=== PATIENT | female | born 1960 | race Caucasian/White ===

== ENCOUNTER 2018-08-18 16:36 | Emergency (ER) | payer BC, OTHER ==
[~2018-08-18] VITALS: Ht 154.9 cm; Wt 78.3 kg
[~2018-08-18 16:36] MED LIST: ATORVASTATIN PO; BENAZEPRIL PO; METFORMIN PO; OMEPRAZOLE PO; TYLENOL PO
[2018-08-18 16:45] VITALS: BP 129/69; PULSE 104; RESP 18; Ht 154.9 cm; Wt 78.3 kg
[2018-08-18] MEDS ORDERED: KETOROLAC 30 MG INJ IM STA (17:20)
[2018-08-18] MEDS ORDERED: IBUP-1542 PO (17:58)
[2018-08-18] MEDS ORDERED: AZIT250T PO (17:58)
[2018-08-18] MEDS ORDERED: D-ME473S2 PO (17:58)
--- NOTE | 2018-08-18 18:05 | ERD ---
ER Documentation Chief Complaint Chief Complaint Fever, cough, R cheek swelling, pelvic pain X 4 days HPI 57-year-old female presents with multiple complaints. She said subjective fever, productive cough for the last week. She has pain and tenderness on her anterior cervical area. She has watery bowel movements as well with intermittent lower abdominal pain. She does not have sustained abdominal pain, current fevers. Patient vomited a couple times after coughing nonbilious nonbloody. ROS All systems reviewed and are negative except as per history of present illness. Medications Home Meds Active Scripts Dextromethorphan Hb-Promethazine Hcl* (Promethazine DM* Syrup) 473 Ml Syrup, 5 ML PO Q6 PRN for COUGH for 5 Days, ML Prov:JAYNE CRANE MD 08/18/18 Ibuprofen* (Motrin*) 600 Mg Tab, 600 MG PO Q6, #15 TAB Prov:JAYNE CRANE MD 08/18/18 Azithromycin* (Zithromax*) 250 Mg Tablet, 250 MG PO .ZPACK DIRECTED, #6 TAB TAKE 500 MG (2 TABS) THE FIRST DAY THEN 250 MG (1 TAB) DAYS 2-5 Prov:JAYNE CRANE MD 08/18/18 Reported Medications [Tylenol] No Conflict Check, 300 MG PO DAILY PRN for PAIN 09/04/14 [Benazepril] No Conflict Check, PO DAILY 09/04/14 [Atorvastatin] No Conflict Check, PO HS 09/04/14 [Metformin] No Conflict Check, PO BID 09/04/14 [Omeprazole] No Conflict Check, PO AM 09/04/14 Allergies Allergies: Coded Allergies: Penicillins (Unverified Allergy, Unknown, HIVES, 09/04/14) PMhx/Soc History of Surgery: Yes (RT ARM SX ) Anesthesia Reaction: No Hx Neurological Disorder: No Hx Respiratory Disorders: No Hx Cardiac Disorders: Yes (HTN ) Hx Psychiatric Problems: No Hx Miscellaneous Medical Probl: Yes (HIGH CHOLESTEROL) Hx Alcohol Use: No Hx Substance Use: No Hx Tobacco Use: Yes (2 CIGARETTES/DAY) Smoking Status: Current every day smoker FmHx Family History: No diabetes, No coronary disease, No other Physical Exam Vitals Vital Signs Date Temp Pulse Resp B/P (MAP) Pulse Ox O2 O2 Flow FiO2 Time Delivery Rate 5/31/19 99.8 104 18 129/69 96 16:45 (89) Physical Exam Const: No acute distress Head: Atraumatic Eyes: Normal Conjunctiva ENT: Normal External Ears, Nose and Mouth. TMs and oropharynx normal. Neck: Full range of motion. No meningismus. Resp: Clear to auscultation bilaterally with cough without rales, wheezing or retractions. Cardio: Regular rate and rhythm, no murmurs Abd: Soft, non tender, non distended. Normal bowel sounds Skin: No petechiae or rashes Back: No midline or flank tenderness Ext: No cyanosis, or edema Neur: Awake and alert Psych: Normal Mood and Affect Results 24 hrs Current Medications Medications Dose Sig/Reynaldo Start Time Status Last (Trade) Ordered Route PRN Stop Time Admin Dose Reason Admin Ketorolac 30 mg ONCE STAT 08/18/18 DC 08/18/18 Tromethamine IM 17:20 17:29 (Toradol) 08/18/18 17:21 Procedures/MDM Patient will complains of multiple complaints including productive cough for last week. Intermittent diarrhea and crampy lower abdominal pain without current findings of abdominal tenderness, she has no tenderness at McBurney's point no Dennison sign. She is well-appearing. She has no evidence of hypoxemia, respiratory distress, signs of pneumonia. Given the duration of symptoms we will treat empirically with Keflex, promethazine, and ibuprofen. She was given Toradol 30 mg IM for body aches. The patient was stable with no new complaints during the ER course. Clinically, there is no current evidence to suggest meningitis, sepsis, acute abdomen, pneumonia, stroke, acute coronary syndrome, pulmonary embolism, aortic dissection or any other emergent condition appearing to require further evaluation or hospitalization. Patient counseled regarding my diagnostic impression and care plan. Prior to discharge all questions answered. Pt agrees with treatment plan and understands strict return precautions. Pt is instructed to follow up with primary care provider within 24- 48 hours. Precautionary instructions provided including instructions to return to the ER if not improving or for any worsening or changing symptoms or concerns. Disclaimer: Inadvertent spelling and grammatical errors are likely due to EHR/dictation software use and do not reflect on the overall quality of patient care. Also, please note that the electronic time recorded on this note does not necessarily reflect the actual time of the patient encounter. Departure Diagnosis: Primary Impression: Diarrhea Diarrhea type: unspecified type Qualified Codes: R19.7 - Diarrhea, unspecified Additional Impression: URI, acute Condition: Stable Patient Instructions: Treating Diarrhea, Bronchitis, Antiobiotic Treatment (Adult) Additional Instructions: Recheck for new or worsening symptoms with primary care doctor. Recheck for worsening abdominal pain, blood, new or worsening symptoms. JAYNE CRANE MD August 18, 2018 18:05
== END 2018-08-18 18:43 | disposition home or self-care (01) ==
LOC: FTE 16:36
DX: R19.7 Diarrhea, unspecified (principal); I10 Essential (primary) hypertension; F17.210 Nicotine dependence, cigarettes, uncomplicated; J06.9 Acute upper respiratory infection, unspecified
CPT/HCPCS: 96372; J1885

== ENCOUNTER 2018-08-23 22:28 | Emergency (ER) | payer BC, OTHER ==
[~2018-08-23] VITALS: Ht 157.5 cm; Wt 78.3 kg
[~2018-08-23 22:28] MED LIST changes: +AZIT250T PO; +D-ME473S2 PO; +IBUP-1542 PO
[2018-08-23 22:45] VITALS: Ht 157.5 cm; Wt 78.3 kg
[2018-08-24] MEDS ORDERED: ONDANSETRON 4 MG INJ IV STA (00:24)
[2018-08-24] MEDS ORDERED: SOD CHLORIDE 0.9% 500 ML IV STA (00:24)
[2018-08-24] MEDS ORDERED: morphine 4 MG/ML VIAL IV STA (00:24)
[2018-08-24] MEDS ORDERED: PIOG30TA71 PO (03:53)
[2018-08-24] MEDS ORDERED: GLYB5TAB3 PO (03:53)
[2018-08-24] MEDS ORDERED: OMEP20CA16 PO (03:53)
[2018-08-24] MEDS ORDERED: PRAV40TA76 PO (03:53)
[2018-08-24] MEDS ORDERED: VIT1TABL46 PO (03:53)
[2018-08-24] MEDS ORDERED: METF100010 PO (03:53)
[2018-08-24] MEDS ORDERED: LISI40TA3 PO (03:53)
[2018-08-24] MEDS ORDERED: DOCU-144 PO (04:33)
[2018-08-24] MEDS ORDERED: CIPR500T4 PO (04:33)
[2018-08-24 04:40] VITALS: BP 100/68; PULSE 83; RESP 19
--- NOTE | 2018-08-24 04:44 | ERD ---
ER Documentation Chief Complaint Chief Complaint back and abd pain x yesterday; fevers; nausea/vomiting HPI This is a 57-year-old female complains of back pain now presents yesterday. She also felt fevers and nausea and vomiting. 2 episodes of vomiting nonbilious nonbloody back denies any flank region complains of lower abdominal region. Pain is mild to moderate intensity no exacerbating alleviating factors. She has had urgency frequency of urination she is also complains of mild constipation for the past few days. Denies any recent travel. Denies any sick contacts. ROS All systems reviewed and are negative except as per history of present illness. Medications Home Meds Active Scripts Docusate Sodium* (Colace*) 100 Mg Capsule, 100 MG PO TID, #30 CAP Prov:MICHEL WAHL 08/24/18 Ciprofloxacin Hcl* (Ciprofloxacin Hcl*) 500 Mg Tablet, 500 MG PO BID for 5 Days, TAB Prov:MICHEL WAHL. 08/24/18 Dextromethorphan Hb-Promethazine Hcl* (Promethazine DM* Syrup) 473 Ml Syrup, 5 ML PO Q6 PRN for COUGH for 5 Days, ML Prov:JAYNE CRANE MD 08/18/18 Ibuprofen* (Motrin*) 600 Mg Tab, 600 MG PO Q6, #15 TAB Prov:JAYNE CRANE MD 08/18/18 Reported Medications Metformin Hcl* (Metformin Hcl*) 1,000 Mg Tablet, 500 MG PO BID for 30 Days, #60 08/24/18 Glyburide* (Glyburide*) 5 Mg Tablet, 5 MG PO BID for 30 Days, #60 08/24/18 Pravastatin Sodium* (Pravastatin Sodium*) 40 Mg Tablet, 40 MG PO QHS for 30 Days, #30 08/24/18 Vitamin B Complex* (Vitamin B Complex*) 1 Each Tablet, 1 TAB PO DAILY, TAB 08/24/18 Lisinopril* (Lisinopril*) 40 Mg Tablet, 40 MG PO DAILY for 30 Days, #30 08/24/18 Omeprazole* (Omeprazole*) 20 Mg Capsule.dr, 20 MG PO DAILY for 60 Days, #60 08/24/18 Pioglitazone Hcl* (Pioglitazone Hcl*) 30 Mg Tablet, 30 MG PO DAILY for 90 Days, #90 08/24/18 Discontinued Reported Medications [Tylenol] No Conflict Check, 300 MG PO DAILY PRN for PAIN 09/04/14 [Benazepril] No Conflict Check, PO DAILY 09/04/14 [Atorvastatin] No Conflict Check, PO HS 09/04/14 [Metformin] No Conflict Check, PO BID 09/04/14 [Omeprazole] No Conflict Check, PO AM 09/04/14 Discontinued Scripts Azithromycin* (Zithromax*) 250 Mg Tablet, 250 MG PO .BrandoPACK DIRECTED, #6 TAB TAKE 500 MG (2 TABS) THE FIRST DAY THEN 250 MG (1 TAB) DAYS 2-5 Prov:JAYNE CRANE MD 08/18/18 Allergies Allergies: Coded Allergies: Penicillins (Unverified Allergy, Unknown, HIVES, 08/24/18) PMhx/Soc History of Surgery: Yes (RT ARM SX ) Anesthesia Reaction: No Hx Neurological Disorder: No Hx Respiratory Disorders: No Hx Cardiac Disorders: Yes (HTN ) Hx Psychiatric Problems: No Hx Miscellaneous Medical Probl: Yes (HIGH CHOLESTEROL) Hx Alcohol Use: No Hx Substance Use: No Hx Tobacco Use: Yes (2 CIGARETTES/DAY) Smoking Status: Current some day smoker Physical Exam Vitals Vital Signs Date Temp Pulse Resp B/P (MAP) Pulse Ox O2 O2 Flow FiO2 Time Delivery Rate 08/24/18 88 22 99/66 (77) 96 Room Air 00:30 08/23/18 100.1 110 20 121/55 95 22:45 (77) Physical Exam Const: No acute distress Head: Atraumatic Eyes: Normal Conjunctiva ENT: Normal External Ears, Nose and Mouth. Neck: Full range of motion. No meningismus. Resp: Clear to auscultation bilaterally Cardio: Regular rate and rhythm, no murmurs Abd: Soft, non tender, non distended. Normal bowel sounds Skin: No petechiae or rashes Back: No midline or flank tenderness Ext: No cyanosis, or edema Neur: Awake and alert Psych: Normal Mood and Affect Result Diagram: 08/24/18 0058 08/24/18 0058 Results 24 hrs Laboratory Tests Test 08/24/18 00:58 White Blood Count 9.9 10^3/ul Red Blood Count 4.87 10^6/ul Hemoglobin 14.5 g/dl Hematocrit 42.2 % Mean Corpuscular Volume 86.7 fl Mean Corpuscular Hemoglobin 29.8 pg Mean Corpuscular Hemoglobin Concent 34.4 g/dl Red Cell Distribution Width 12.2 % Platelet Count 323 10^3/UL Mean Platelet Volume 9.6 fl Immature Granulocytes % 2.000 % Neutrophils % 51.8 % Lymphocytes % 37.7 % Monocytes % 5.9 % Eosinophils % 1.7 % Basophils % 0.9 % Nucleated Red Blood Cells % 0.0 /100WBC Immature Granulocytes # 0.200 10^3/ul Neutrophils # 5.1 10^3/ul Lymphocytes # 3.7 10^3/ul Monocytes # 0.6 10^3/ul Eosinophils # 0.2 10^3/ul Basophils # 0.1 10^3/ul Nucleated Red Blood Cells # 0.0 10^3/ul Urine Color TOMMIE Urine Clarity CLOUDY Urine pH 5.0 Urine Specific [place] 1.034 Urine Ketones TRACE mg/dL Urine Nitrite NEGATIVE mg/dL Urine Bilirubin 1+ mg/dL Urine Urobilinogen 2+ mg/dL Urine Leukocyte Esterase NEGATIVE Chrissie/ul Urine Microscopic RBC 2 /HPF Urine Microscopic WBC 5 /HPF Urine Squamous Epithelial Cells MODERATE /HPF Urine Bacteria FEW /HPF Urine Mucus MANY /HPF Urine Hemoglobin NEGATIVE mg/dL Urine Glucose 1+ mg/dL Urine Total Protein 2+ mg/dl Sodium Level 134 mmol/L Potassium Level 4.1 mmol/L Chloride Level 98 mmol/L Carbon Dioxide Level 26 mmol/L Anion Gap 10 Blood Urea Nitrogen 13 mg/dl Creatinine 0.66 mg/dl Est Glomerular Filtrat Rate mL/min > 60 mL/min Glucose Level 318 mg/dl Calcium Level 9.2 mg/dl Total Bilirubin 0.8 mg/dl Direct Bilirubin 0.00 mg/dl Indirect Bilirubin 0.8 mg/dl Aspartate Amino Transf (AST/SGOT) 37 IU/L Alanine Aminotransferase (ALT/SGPT) 49 IU/L Alkaline Phosphatase 100 IU/L Troponin I < 0.012 ng/ml Total Protein 7.3 g/dl Albumin 4.1 g/dl Globulin 3.20 g/dl Albumin/Globulin Ratio 1.28 Lipase 381 U/L Current Medications Medications Dose Sig/Reynaldo Start Time Status Last (Trade) Ordered Route PRN Stop Time Admin Dose Reason Admin Sodium 500 ml @ Q1H STAT 08/24/18 DC 08/24/18 Chloride 500 mls/hr IV 00:24 08/24/18 00:24 01:23 Morphine 4 mg ONCE STAT 08/24/18 DC 08/24/18 Sulfate IV 00:24 08/24/18 01:28 (morphine) 00:26 Ondansetron 4 mg ONCE STAT 08/24/18 DC 08/24/18 HCl (Zofran IV 00:24 08/24/18 01:28 Inj) 00:26 Procedures/MDM Medical decision making: Patient's gastrointestinal symptoms have stabilized while in the department. No evidence of severe dehydration, sepsis, or surgical abdomen. Extensive discussion with family and patient that occult disease cannot be ruled out. 8 hour recheck for repeat abdominal exam is planned. Departure Diagnosis: Primary Impression: Constipation Constipation type: unspecified constipation type Qualified Codes: K59.00 - Constipation, unspecified Additional Impression: Urinary tract infection Urinary tract infection type: site unspecified Hematuria presence: without hematuria Qualified Codes: N39.0 - Urinary tract infection, site not specified Condition: Stable Patient Instructions: Understanding Urinary Tract Infections (UTIs), Constipation (Adult) MICHEL WAHL Aug 24, 2018 04:44
== END 2018-08-24 05:00 | disposition home or self-care (01) ==
LOC: E/R 22:28
DX: K59.00 Constipation, unspecified (principal); N39.0 Urinary tract infection, site not specified; I10 Essential (primary) hypertension; F17.210 Nicotine dependence, cigarettes, uncomplicated; Z79.84 Long term (current) use of oral hypoglycemic drugs
CPT/HCPCS: 36415; 71045; 74176; 80053; 81001; 83690; 84484; 85025; 85610; 85730; 93005; 96374; 96375; 99285; J2270; J2405; J7040

== ENCOUNTER 2018-09-03 00:23 | Emergency (ER) | payer BC ==
[~2018-09-03] VITALS: Ht 157.5 cm; Wt 84.1 kg
[~2018-09-03 00:23] MED LIST changes: -ATORVASTATIN PO; -AZIT250T PO; -BENAZEPRIL PO; +CIPR500T4 PO; +DOCU-144 PO; +GLYB5TAB3 PO; +LISI40TA3 PO; +METF100010 PO; -METFORMIN PO; +OMEP20CA16 PO; -OMEPRAZOLE PO; +PIOG30TA71 PO; +PRAV40TA76 PO; -TYLENOL PO; +VIT1TABL46 PO
[2018-09-03 00:30] VITALS: Ht 157.5 cm; Wt 84.1 kg
[2018-09-03] MEDS ORDERED: SOD CHLORIDE 0.9% 1,000 ML IV STA (01:02)
--- NOTE | 2018-09-03 03:08 | ERD ---
ER Documentation Chief Complaint Chief Complaint GENERALIZED BODY WEAKNESS, NUMBNESS AND BACK PAIN X1 WEEK, HX OF TIA HPI This is a 57-year-old female who presents with her family member. Per the family for the last several weeks the patient has had generalized weakness, paresthesias and recent admission for possible TIA. She had a normal MRI, normal carotid duplex and was discharged to follow-up with a neurologist. She has had several ER visits for similar symptoms with negative work-up. Today the patient is still feeling generally weak. She describes pain to the entire body as well as numbness and tingling. She has no focal deficits, no slurred speech. She just feels weak in general. Patient denies any fevers chills cough chest pain or shortness of breath. Significant social stressors have been noted. ROS All systems reviewed and are negative except as per history of present illness. Medications Home Meds Active Scripts Docusate Sodium* (Colace*) 100 Mg Capsule, 100 MG PO TID, #30 CAP Prov:MICHEL WAHL 08/24/18 Ciprofloxacin Hcl* (Ciprofloxacin Hcl*) 500 Mg Tablet, 500 MG PO BID for 5 Days, TAB Prov:MICHEL WAHL 08/24/18 Dextromethorphan Hb-Promethazine Hcl* (Promethazine DM* Syrup) 473 Ml Syrup, 5 ML PO Q6 PRN for COUGH for 5 Days, ML Prov:JAYNE CRANE MD 08/18/18 Ibuprofen* (Motrin*) 600 Mg Tab, 600 MG PO Q6, #15 TAB Prov:JAYNE CRANE MD 08/18/18 Reported Medications Metformin Hcl* (Metformin Hcl*) 1,000 Mg Tablet, 500 MG PO BID for 30 Days, #60 08/24/18 Glyburide* (Glyburide*) 5 Mg Tablet, 5 MG PO BID for 30 Days, #60 08/24/18 Pravastatin Sodium* (Pravastatin Sodium*) 40 Mg Tablet, 40 MG PO QHS for 30 Days, #30 08/24/18 Vitamin B Complex* (Vitamin B Complex*) 1 Each Tablet, 1 TAB PO DAILY, TAB 08/24/18 Lisinopril* (Lisinopril*) 40 Mg Tablet, 40 MG PO DAILY for 30 Days, #30 08/24/18 Omeprazole* (Omeprazole*) 20 Mg Capsule.dr, 20 MG PO DAILY for 60 Days, #60 08/24/18 Pioglitazone Hcl* (Pioglitazone Hcl*) 30 Mg Tablet, 30 MG PO DAILY for 90 Days, #90 08/24/18 Allergies Allergies: Coded Allergies: Penicillins (Unverified Allergy, Unknown, HIVES, 08/24/18) PMhx/Soc History of Surgery: Yes (RT ARM SX ) Anesthesia Reaction: No Hx Neurological Disorder: No Hx Respiratory Disorders: No Hx Cardiac Disorders: Yes (HTN ) Hx Psychiatric Problems: No Hx Miscellaneous Medical Probl: Yes (HIGH CHOLESTEROL) Hx Alcohol Use: No Hx Substance Use: No Hx Tobacco Use: Yes (2 CIGARETTES/DAY) Smoking Status: Former smoker FmHx Family History: No diabetes Physical Exam Vitals Vital Signs Date Temp Pulse Resp B/P (MAP) Pulse Ox O2 O2 Flow FiO2 Time Delivery Rate 09/03/18 63 16 112/68 98 Room Air 02:35 (83) 09/03/18 67 16 95/59 (71) 96 Room Air 01:35 09/03/18 Nasal 2 01:35 Cannula 09/03/18 98.6 89 19 95/59 (71) 96 00:30 Physical Exam General: Well developed, well nourished, no acute distress Head: Normocephalic, atraumatic. Eyes: Pupils equally reactive, EOM intact ENT: Moist mucous membranes Neck: Supple, no lymphadenopathy Respiratory: Lungs clear bilaterally, no distress Cardiovascular: RRR, no murmurs, rubs, or gallops Abdominal: Soft, non-tender, non-distended, no peritoneal signs : Deferred MSK: No edema, no unilateral swelling, 5/5 strength Neurologic: Alert and oriented, moving all extremities, normal speech, no focal weakness, no cerebellar signs, no pronator drift, inconsistent weakness to all extremities, somewhat behavioral Skin: No rash Psych: Normal mood Result Diagram: 09/03/18 0122 09/03/18 0122 Results 24 hrs Laboratory Tests Test 09/03/18 01:20 09/03/18 01:22 Bedside Glucose 131 mg/dL White Blood Count 7.1 10^3/ul Red Blood Count 5.00 10^6/ul Hemoglobin 14.6 g/dl Hematocrit 43.6 % Mean Corpuscular Volume 87.2 fl Mean Corpuscular Hemoglobin 29.2 pg Mean Corpuscular Hemoglobin Concent 33.5 g/dl Red Cell Distribution Width 12.1 % Platelet Count 340 10^3/UL Mean Platelet Volume 10.9 fl Immature Granulocytes % 0.300 % Neutrophils % 40.4 % Lymphocytes % 46.8 % Monocytes % 8.0 % Eosinophils % 3.4 % Basophils % 1.1 % Nucleated Red Blood Cells % 0.0 /100WBC Immature Granulocytes # 0.020 10^3/ul Neutrophils # 2.9 10^3/ul Lymphocytes # 3.3 10^3/ul Monocytes # 0.6 10^3/ul Eosinophils # 0.2 10^3/ul Basophils # 0.1 10^3/ul Nucleated Red Blood Cells # 0.0 10^3/ul Prothrombin Time 11.8 Sec Prothrombin Time Ratio 0.9 INR International Normalized Ratio 0.86 Activated Partial Thromboplast Time 29.1 Sec Urine Color STRAW Urine Clarity CLEAR Urine pH 6.0 Urine Specific [place] 1.004 Urine Ketones NEGATIVE mg/dL Urine Nitrite NEGATIVE mg/dL Urine Bilirubin NEGATIVE mg/dL Urine Urobilinogen NEGATIVE mg/dL Urine Leukocyte Esterase NEGATIVE Chrissie/ul Urine Hemoglobin NEGATIVE mg/dL Urine Glucose NEGATIVE mg/dL Urine Total Protein NEGATIVE mg/dl Sodium Level 139 mmol/L Potassium Level 4.2 mmol/L Chloride Level 105 mmol/L Carbon Dioxide Level 24 mmol/L Anion Gap 10 Blood Urea Nitrogen 13 mg/dl Creatinine 0.61 mg/dl Est Glomerular Filtrat Rate mL/min > 60 mL/min Glucose Level 142 mg/dl Calcium Level 9.5 mg/dl Total Bilirubin 0.6 mg/dl Direct Bilirubin 0.00 mg/dl Indirect Bilirubin 0.6 mg/dl Aspartate Amino Transf (AST/SGOT) 29 IU/L Alanine Aminotransferase (ALT/SGPT) 42 IU/L Alkaline Phosphatase 94 IU/L Troponin I < 0.012 ng/ml Total Protein 7.2 g/dl Albumin 4.2 g/dl Globulin 3.00 g/dl Albumin/Globulin Ratio 1.40 Free Thyroxine Index 3.01 ug/ml Thyroxine (T4) 9.7 ug/dl Triiodothyronine (T3) Uptake 31.0 % Current Medications Medications Dose Sig/Reynaldo Start Time Status Last (Trade) Ordered Route PRN Stop Time Admin Dose Reason Admin Sodium 1,000 ml @ Q1H STAT 09/03/18 DC 09/03/18 Chloride 1,000 mls/hr IV 01:02 01:33 09/03/18 02:01 Procedures/MDM EKG, MONITORS, & DIAGNOSTIC IMAGING: CT brain: No acute process per radiologist read Chest x-ray: I reviewed and interpreted a 1 view of the chest Mediastinum: No enlargement Cardiac silhouette: No cardiomegaly Airspace: Clear lung newman bilaterally without evidence of pneumothorax Bones: No evidence of fracture EKG: I reviewed and interpreted a 12-lead EKG. Rhythm: Normal sinus rhythm ST Changes: No contiguous ST segment elevations T waves: No contiguous T wave inversions Impression: No evidence of acute cardiac ischemia LAB INTERPRETATION: I reviewed the laboratory testing and it shows no evidence of acute process MEDICAL DECISION MAKING: The patient has nonspecific generalized weakness and paresthesia and pain. She has had a thorough work-up with recent hospitalization and negative MRI imaging of the brain. Her exam here is nonfocal. I do not have a clear etiology. There is some social stressors that may be playing a role. Consider MS that the patient had an MRI. Patient does not exhibit any signs or symptoms concerning for stroke syndrome. Her weakness is global and nonfocal without evidence of FIELD SPECIALIST process. To the family that any may not have a specific answer given her recent thorough work-up. The patient is to follow-up with a neurologist for outpatient testing. We discussed repeating laboratory testing and CT imaging of the brain. Outpatient follow-up is still needed. ER COURSE: * Laboratory testing and diagnostic imaging is unrevealing. The patient can be safely discharged with close primary care follow-up. CONSULTATION: None DISPOSITION PLAN: The patient does not have an identifiable emergent medical condition that warrants inpatient hospitalization at this time. The patient is deemed safe for discharge with outpatient follow-up. We discussed follow up with the patient's primary care doctor within 24 to 48 hours as needed. We also discussed return to the emergency room for worsening symptoms or worsening condition. Outpatient referral: Neurology Discharge Medications: None required Departure Diagnosis: Primary Impression: Generalized weakness Additional Impression: Paresthesia Condition: Stable Patient Instructions: Numbness, Weakness, Unk Cause Referrals: [facility] () Usted se quinn hecho un examen mdico de control que le indica que no est en otis condicin que requiera tratamiento urgente en el Departamento de Emergencia. Un estudio ms profundo y el tratamiento de bauer condicin pueden esperar sin sophiegn rijorgego hasta que usted sea atendida/o en el consultorio de bauer mdico o otis clnica. Es responsabilidad suya arreglar otis pepe para el seguimiento del patrick. MANEJO DE CONDICIONES NO URGENTES EN EL FUTURO 1) Si usted tiene un mdico de atencin primaria: Usted debera llamar a bauer mdico de atencin primaria antes de venir al departamento de emergencia. Despus de las horas de consultorio, bauer doctor o bauer asociado/a est disponible por telfono. El mdico o enfermero de carmenza en el servicio telefnico puede asesorarle por monserrat medio para atender el problema, o patrick contrario se puede programar otis pepe. 2) Si usted no tiene un mdico de atencin primaria: Llame al mdico o clnica de referencia que aparece abajo thea las horas de consultorio para hacer otis pepe para que le vean. CLINICAS: [facility] [phone] [address] [facility] [phone] [facility] [phone] [address] [facility]. [facility] [phone] [address] [facility] [address] [place] [id number] [phone] [facility] [phone] [facility] () Usted se quinn hecho un examen mdico de control que le indica que no est en otis condicin que requiera tratamiento urgente en el Departamento de Emergencia. Un estudio ms profundo y el tratamiento de bauer condicin pueden esperar sin ningn riesgo hasta que usted sea atendida/o en el consultorio de bauer mdico o otis clnica. Es responsabilidad suya arreglar otis pepe para el seguimiento del patrick. MANEJO DE CONDICIONES NO URGENTES EN EL FUTURO 1) Si usted tiene un mdico de atencin primaria: Usted debera llamar a bauer mdico de atencin primaria antes de venir al d epartamento de emergencia. Despus de las horas de consultorio, bauer doctor o bauer asociado/a est disponible por telfono. El mdico o enfermero de carmenza en el servicio telefnico puede asesorarle por monserrat medio para atender el problema, o patrick contrario se puede programar otis pepe. 2) Si usted no tiene un mdico de atencin primaria: Llame al mdico o condado institucions de referencia que aparece abajo thea las horas de consultorio para hacer otis pepe para que le vean. SI USTED NO PUEDE PAGAR PARA BABATUNDE UN MEDICO puede ir a: [facility] [id number] [place] [address] [facility] [address] [place] [address] [facility] [address] [place] [address] [facility] [address] [place], [place] [phone] Additional Instructions: Llame al doctor nombrado abajo (Referral Sources) MAANA y jacki otis PEPE PARA DENTRO DE OTIS SEMANA. Dgale a la secretaria que nosotros le instruimos hacer esta pepe.Avise o llame si bauer condicin se empeora antes de la pepe. NICHOL DOWNEY MD Sep 03, 2018 03:08
[2018-09-03 03:33] VITALS: BP 135/61; PULSE 64; RESP 16
[2018-09-04] MEDS ORDERED: LISI40TA3 PO (23:18)
[2018-09-04] MEDS ORDERED: VIT1TABL46 PO (23:18)
[2018-09-04] MEDS ORDERED: MTF1000T PO (23:18)
[2018-09-04] MEDS ORDERED: PRAV40TA76 PO (23:18)
[2018-09-04] MEDS ORDERED: PIOG30TA71 PO (23:18)
[2018-09-04] MEDS ORDERED: GLYB5TAB3 PO (23:18)
[2018-09-04] MEDS ORDERED: OMEP20CA16 PO (23:18)
== END 2018-09-03 03:51 | disposition home or self-care (01) ==
LOC: E/R 00:23
DX: R53.1 Weakness (principal); R20.2 Paresthesia of skin; Z79.84 Long term (current) use of oral hypoglycemic drugs; Z86.73 Personal history of transient ischemic attack (TIA), and cerebral infarction without residual deficits; Z87.891 Personal history of nicotine dependence
CPT/HCPCS: 36415; 70450; 71045; 80053; 81003; 82962; 84436; 84479; 84484; 85025; 85610; 85730; 93005; 99285; J7030

== ENCOUNTER 2018-09-04 16:34 | Inpatient (IN) | payer BC ==
[~2018-09-04] VITALS: Ht 154.9 cm; Wt 83.0 kg
--- NOTE | 2018-09-04 18:03 | ERD ---
ER Documentation Chief Complaint Chief Complaint RIGHT KNEE PAIN FROM A GLF ABOUT 30 MIN AGO, NO DEFORMITY NOTED. HPI Patient 57-year-old female, with history of hypertension and high cholesterol, returns to the emergency department 24 hours after being seen and evaluated for generalized weakness. Today, the patient presents to the emergency department, brought in by ambulance after sustaining a ground-level fall, according to the patient, caused by worsening of weakness in her lower extremities. Her symptoms started approximately on 08/18/18 when the patient presented to this emergency department with symptoms consistent with acute gastroenteritis. After that, the patient slowly developed progressive asymmetrical weakness of the lower extremities that now is compromising the upper extremities. The patient denies recent fever or chills, no chest pain or shortness of breath, no abdominal pain, no diarrhea or constipation. On 08/19/2018, the patient was evaluated at [facility] where she had a carotid ultrasound and a CT of the head that were negative for stroke. The patient and her family reports being in her usual state of health, ambulating, performing the activities of daily living without any difficulty 1 until 3 weeks ago. Since last week, the patient has not been able to ambulate, not been able to perform ADL without assistance. ROS All systems reviewed and are negative except as per history of present illness. Medications Home Meds Active Scripts Docusate Sodium* (Colace*) 100 Mg Capsule, 100 MG PO TID, #30 CAP Prov:MICHEL WAHL 08/24/18 Ciprofloxacin Hcl* (Ciprofloxacin Hcl*) 500 Mg Tablet, 500 MG PO BID for 5 Days, TAB Prov:MICHEL WAHL 08/24/18 Dextromethorphan Hb-Promethazine Hcl* (Promethazine DM* Syrup) 473 Ml Syrup, 5 ML PO Q6 PRN for COUGH for 5 Days, ML Prov:JAYNE CRANE MD 08/18/18 Ibuprofen* (Motrin*) 600 Mg Tab, 600 MG PO Q6, #15 TAB Prov:JAYNE CRANE MD 08/18/18 Reported Medications Metformin Hcl* (Metformin Hcl*) 1,000 Mg Tablet, 500 MG PO BID for 30 Days, #60 08/24/18 Glyburide* (Glyburide*) 5 Mg Tablet, 5 MG PO BID for 30 Days, #60 08/24/18 Pravastatin Sodium* (Pravastatin Sodium*) 40 Mg Tablet, 40 MG PO QHS for 30 Days, #30 08/24/18 Vitamin B Complex* (Vitamin B Complex*) 1 Each Tablet, 1 TAB PO DAILY, TAB 08/24/18 Lisinopril* (Lisinopril*) 40 Mg Tablet, 40 MG PO DAILY for 30 Days, #30 08/24/18 Omeprazole* (Omeprazole*) 20 Mg Capsule.dr, 20 MG PO DAILY for 60 Days, #60 08/24/18 Pioglitazone Hcl* (Pioglitazone Hcl*) 30 Mg Tablet, 30 MG PO DAILY for 90 Days, #90 08/24/18 Allergies Allergies: Coded Allergies: Penicillins (Unverified Allergy, Unknown, HIVES, 08/24/18) PMhx/Soc History of Surgery: Yes (right shoulder) Anesthesia Reaction: No Hx Neurological Disorder: No Hx Respiratory Disorders: No Hx Cardiac Disorders: Yes (dm, high cholesterol) Hx Psychiatric Problems: No Hx Miscellaneous Medical Probl: Yes (gastritis) Hx Alcohol Use: No Hx Substance Use: No Hx Tobacco Use: No Smoking Status: Never smoker Physical Exam Vitals Vital Signs Date Temp Pulse Resp B/P (MAP) Pulse Ox O2 O2 Flow FiO2 Time Delivery Rate 09/04/18 16 103/72 96 Room Air 21:59 (82) 09/04/18 98.5 83 18 105/59 99 16:38 (74) Physical Exam Patient alert, oriented, in a wheelchair, vital signs stable, seems anxious and in distress due to weakness. HEAD: Normocephalic, atraumatic. EYES: PERRLA, EOMI, Sclera and conjunctiva appear normal. NOSE: Clear and patent nostrils. EARS: Canals clear, tympanic membranes WNL. MOUTH: normal lips and tongue, no oral lesions. THROAT: Normal oropharynx, no tonsillar exudates. NECK: Supple, No lymphadenopathy. Full ROM without pain or tenderness. HEART: RRR, no rubs, murmurs, clicks or gallops. LUNGS: Clear to auscultation. ABDOMEN: Soft, non-tender without masses or hepatosplenomegaly. EXTREMITIES: No edema bilaterally. BACK: Full ROM, no deformity, normal back exam NEURO: Cranial nerves grossly intact, asymmetric muscle weakness predominantly in the left upper and left lower extremity with decreased bilateral patellar reflexes. Sensation intact to touch. SKIN: No rashes, no petechia. Result Diagram: 09/04/18190709/04/181907 Results 24 hrs Laboratory Tests Test 09/04/18 18:59 09/04/18 19:08 09/04/18 21:06 Urine Color YELLOW Urine Clarity CLEAR Urine pH 5.0 Urine Specific [place] 1.006 Urine Ketones NEGATIVE mg/dL Urine Nitrite NEGATIVE mg/dL Urine Bilirubin NEGATIVE mg/dL Urine Urobilinogen NEGATIVE mg/dL Urine Leukocyte Esterase NEGATIVE Chrissie/ul Urine Hemoglobin NEGATIVE mg/dL Urine Glucose NEGATIVE mg/dL Urine Total Protein NEGATIVE mg/dl Urine Opiates Screen Negative Urine Barbiturates Negative Urine Amphetamines Screen Negative Urine Benzodiazepines Screen Negative Urine Cocaine Screen Negative Urine Cannabinoids Negative White Blood Count 6.7 10^3/ul Red Blood Count 5.16 10^6/ul Hemoglobin 15.0 g/dl Hematocrit 45.4 % Mean Corpuscular Volume 88.0 fl Mean Corpuscular Hemoglobin 29.1 pg Mean Corpuscular 33.0 g/dl Hemoglobin Concent Red Cell Distribution Width 12.2 % Platelet Count 340 10^3/UL Mean Platelet Volume 10.9 fl Immature Granulocytes % 0.300 % Neutrophils % 53.0 % Lymphocytes % 36.6 % Monocytes % 5.7 % Eosinophils % 3.4 % Basophils % 1.0 % Nucleated Red Blood Cells % 0.0 /100WBC Immature Granulocytes # 0.020 10^3/ul Neutrophils # 3.6 10^3/ul Lymphocytes # 2.5 10^3/ul Monocytes # 0.4 10^3/ul Eosinophils # 0.2 10^3/ul Basophils # 0.1 10^3/ul Nucleated Red Blood Cells # 0.0 10^3/ul Sodium Level 139 mmol/L Potassium Level 5.2 mmol/L Chloride Level 101 mmol/L Carbon Dioxide Level 25 mmol/L Anion Gap 13 Blood Urea Nitrogen 17 mg/dl Creatinine 0.65 mg/dl Est Glomerular Filtrat > 60 mL/min Rate mL/min Glucose Level 130 mg/dl Lactic Acid Level 2.8 mmol/L 1.8 mmol/L Calcium Level 9.8 mg/dl Total Bilirubin 0.5 mg/dl Direct Bilirubin 0.00 mg/dl Indirect Bilirubin 0.5 mg/dl Aspartate Amino 30 IU/L Transf (AST/SGOT) Alanine 48 IU/L Aminotransferase (ALT/SGPT) Alkaline Phosphatase 93 IU/L Total Protein 7.5 g/dl Albumin 4.4 g/dl Globulin 3.10 g/dl Albumin/Globulin Ratio 1.41 Free Thyroxine Index 2.79 ug/ml Thyroxine (T4) 9.6 ug/dl Triiodothyronine (T3) Uptake 29.1 % Salicylates Level < 1.0 mg/dl Acetaminophen Level < 10.0 ug/ml Ethyl Alcohol Level < 10.0 mg/dl HIV (1&2) Antibody NEGATIVE Current Medications Medications Dose Sig/Reynaldo Start Time Status Last (Trade) Ordered Route PRN Stop Time Admin Dose Reason Admin Sodium 500 ml @ Q1H STAT 09/04/18 DC 09/04/18 Chloride 500 mls/hr IV 18:51 19:36 09/04/18 19:50 Ondansetron 4 mg BRIDGE ORDER 09/04/18 HCl (Zofran PRN IV 20:30 Inj) NAUSEA/VOMITI 09/05/18 20:29 NG 650 mg ER BRIDGE 09/04/18 Acetaminophen PRN PO 20:30 (Tylenol .MILD PAIN 09/05/18 20:29 Tab) 1-3 OR TEMP 650 mg ONCE ONCE 09/04/18 DC 09/04/18 Acetaminophen PO 21:00 20:38 (Tylenol 09/04/18 21:01 Tab) Sodium 1,000 ml @ Q1H ONCE 09/04/18 DC 09/04/18 Chloride 1,000 mls/hr IV 21:00 20:53 09/04/18 21:59 Sodium 1,000 ml @ [id number] IV 09/04/18 Chloride 70 mls/hr 20:56 09/05/18 20:55 IV Flush 3 ml PER 09/04/18 (NS 3 ml) PROTOCOL IV 21:00 Ondansetron 4 mg Q6H PRN 09/04/18 HCl (Zofran IV 21:00 Inj) NAUSEA/VOMITI NG 650 mg Q6H PRN 09/04/18 Acetaminophen PO .PAIN 1-3 21:00 (Tylenol OR TEMP Tab) Docusate 100 mg Q12H PRN 09/04/18 Sodium PO 21:00 (Colace) .CONSTIPATION Bisacodyl 5 mg DAILY PRN 09/04/18 (Dulcolax) PO 21:00 .CONSTIPATION EKG read by me: Rate/Rhythm: Regular rate and rhythm at a rate of 68 Intervals: Normal No acute ST changes. No T wave inversion Impression: No evidence of acute ischemia or arrhythmia Procedures/MDM Vital signs stable, Differential diagnosis include but not limited to demyelinating polyneuropathy, multiple sclerosis, thyroid disease, autoimmune process, stroke, electrolyte imbalance, anemia, side effects of the medication. Labs requested and reviewed: CBC: no evidence of anemia or leukocytosis, platelets normal. CMP: Normal electrolytes, except for mild elevated potassium, normal kidney function, normal liver function, normal lipase, no evidence of diabetes or metabolic acidosis. Urine: No evidence of infection. At this time, I considered that the patient requires further neurologic evaluation inpatient due to progressive weakness. During the ED course the patient remained stable, no new complaints. Results and clinical impression discussed with patient who agrees with management. The patient is stable to be admitted to [facility]. Admission: Diagnosis: Acute weakness Accepting physician: Dr. Kendall Level of care: [facility] Instructions explained and given directly by me to the patient with acknowledgment and demonstrated understanding. Disclaimer: Inadvertent spelling and grammatical errors are likely due to EHR/dictation software use and do not reflect on the overall quality of patient care. Also, please note that the electronic time recorded on this note does not necessarily reflect the actual time of the patient encounter. Departure Diagnosis: Primary Impression: Acute weakness Additional Impressions: Inability to perform activities of daily living History of gastroenteritis Fall due to stumbling Condition: Stable RAÚL RODRIGUEZ MD Sep 04, 2018 18:03
[2018-09-04] MEDS ORDERED: SOD CHLORIDE 0.9% 500 ML IV STA (18:51)
[2018-09-04] MEDS ORDERED: ONDANSETRON 4 MG INJ IV PRN ×2 (20:30→21:00)
[2018-09-04] MEDS ORDERED: ACETAMINOPHEN 325 MG TAB PO PRN (20:30)
[2018-09-04] MEDS ORDERED: NACL 0.9% 3 ML SYG IV SCH (21:00)
[2018-09-04] MEDS ORDERED: DOCUSATE SODIUM 100 MG CAP PO PRN (21:00)
[2018-09-04] MEDS ORDERED: SOD CHLORIDE 0.9% 1,000 ML IV ONE (21:00)
[2018-09-04] MEDS ORDERED: ACETAMINOPHEN 325 MG TAB PO ONE (21:00)
[2018-09-04] MEDS ORDERED: MTF1000T PO (23:18)
[2018-09-04] MEDS ORDERED: OMEP20CA16 PO (23:18)
[2018-09-04] MEDS ORDERED: PRAV40TA76 PO (23:18)
[2018-09-04] MEDS ORDERED: PIOG30TA71 PO (23:18)
[2018-09-04] MEDS ORDERED: LISI40TA3 PO (23:18)
[2018-09-04] MEDS ORDERED: GLYB5TAB3 PO (23:18)
[2018-09-04] MEDS ORDERED: VIT1TABL46 PO (23:18)
--- NOTE | 2018-09-05 00:17 | HP ---
Date/Time of Note Date/Time of Note DATE: 09/05/18 TIME: 00:16 Assessment/Plan VTE Prophylaxis SCD applied (from Nsg): Yes Pharmacological prophylaxis: NA/contraindicated Pharm contraindication: low risk/ambulating Lines/Catheters IV Catheter Type (from Nrsg): Saline Lock Assessment/Plan Hospital Course This is a 57-year-old female being admitted to the [facility] floor for: #1 limb and trunk weakness: Demyelinating disorder, versus GBS versus MS versus infectious etiology: Patient originally had what appeared to be a viral gastrointestinal illness which later brought on left lower extremity weakness followed by left upper extremity weakness and is now progressed to the right side. She denies any current fevers. Her diarrhea has resolved. She will continues to have a poor appetite. She does have pain to palpation of her cervical spine as well as her lumbar spine. She has had multiple imaging modalities such as CAT scans and blood work done as an outpatient which so far have been negative. She continues to have difficulty with her ADLs. My initial thought process was to initiate IVIG however as we do not have any in stock, I will proceed with high-dose Solu-Medrol. Will obtain MRI of the brain and cervical spine and lumbar spine pelvis. Will check HIV, RPR, BEULAH, CK total. Will consult neurology . PT evaluation. #2 lactic acidosis: Patient was found to have an elevated lactic acid level of 2.8. She does afebrile normal white blood cell count nonetheless given her symptoms will proceed with blood cultures x2, stool studies urine culture. #3. Diabetes mellitus, will check hemoglobin A1c, hold home oral medications, carbohydrate controlled diet, monitor glucose levels in the setting of high-dose steroids. #4 hypertension: Patient at the current time as blood pressures are borderline, will hold home oral medications #5 hyperlipidemia: We will hold statin at the current time until we set CK levels. #6 DVT and GI prophylaxis: SCDs, no GI prophylaxis indicated Further treatment strategy will be implemented as per the clinical course. Result Diagram: 09/04/18190709/04/181907 Results 24hrs Laboratory Tests Test 09/04/18 18:59 09/04/18 19:08 09/04/18 21:06 Urine Color YELLOW Urine Clarity CLEAR Urine pH 5.0 Urine Specific [place] 1.006 Urine Ketones NEGATIVE Urine Nitrite NEGATIVE Urine Bilirubin NEGATIVE Urine Urobilinogen NEGATIVE Urine Leukocyte Esterase NEGATIVE Urine Hemoglobin NEGATIVE Urine Glucose NEGATIVE Urine Total Protein NEGATIVE Urine Opiates Screen Negative Urine Barbiturates Negative Urine Amphetamines Screen Negative Urine Benzodiazepines Screen Negative Urine Cocaine Screen Negative Urine Cannabinoids Negative White Blood Count 6.7 Red Blood Count 5.16 Hemoglobin 15.0 Hematocrit 45.4 Mean Corpuscular Volume 88.0 Mean Corpuscular Hemoglobin 29.1 Mean Corpuscular Hemoglobin Concent 33.0 Red Cell Distribution Width 12.2 Platelet Count 340 Mean Platelet Volume 10.9 H Immature Granulocytes % 0.300 Neutrophils % 53.0 Lymphocytes % 36.6 Monocytes % 5.7 Eosinophils % 3.4 Basophils % 1.0 Nucleated Red Blood Cells % 0.0 Immature Granulocytes # 0.020 Neutrophils # 3.6 Lymphocytes # 2.5 Monocytes # 0.4 Eosinophils # 0.2 Basophils # 0.1 Nucleated Red Blood Cells # 0.0 Sodium Level 139 Potassium Level 5.2 H Chloride Level 101 Carbon Dioxide Level 25 Anion Gap 13 Blood Urea Nitrogen 17 Creatinine 0.65 Est Glomerular Filtrat Rate mL/min > 60 Glucose Level 130 Lactic Acid Level 2.8 *H 1.8 Calcium Level 9.8 Total Bilirubin 0.5 Direct Bilirubin 0.00 Indirect Bilirubin 0.5 Aspartate Amino Transf (AST/SGOT) 30 Alanine Aminotransferase (ALT/SGPT) 48 Alkaline Phosphatase 93 Total Protein 7.5 Albumin 4.4 Globulin 3.10 Albumin/Globulin Ratio 1.41 Free Thyroxine Index 2.79 Thyroxine (T4) 9.6 Triiodothyronine (T3) Uptake 29.1 Salicylates Level < 1.0 L Acetaminophen Level < 10.0 L Ethyl Alcohol Level < 10.0 H HIV (1&2) Antibody NEGATIVE HPI/ROS Admit Date/Time Admit Date/Time Hx of Present Illness Chief complaint: Worsening weakness This is a 57-year-old female, with history of hypertension and high cholesterol, returns to the emergency department 24 hours after being seen and evaluated for generalized weakness. Today, the patient presents to the emergency department, brought in by ambulance after sustaining a ground-level fall where she denied any head trauma, according to the patient, caused by worsening of weakness in her lower extremities. Some times have been going on since 08/18 and at that time she presented to the emergency department with symptoms consistent with acute gastroenteritis. After that, the patient slowly developed progressive asymmetrical weakness of the lower extremities that now is compromising the upper extremities. Reports that originally her weakness is on the left side now it is going to the right. The patient denies recent fever or chills, no chest pain or shortness of breath, no abdominal pain, no diarrhea or constipation. On 08/19/2018, the patient was evaluated at [facility] where she had a carotid ultrasound and a CT of the head that were negative for stroke. The patient and her family reports being in her usual state of health, ambulating, performing the activities of daily living without any difficulty 1 until 3 weeks ago. Since last week, the patient has not been able to ambulate, not been able to perform ADL without assistance. Her daughter was with her at the bedside states that they require assistance to help her up. Patient does report cervical spine pain as well as lumbar spine pain. Patient denies any any chest pain or difficulty breathing. She denies any fevers. Denies any headaches or vision changes. She does report right shoulder surgery in the past so she does have chronic weakness of the right upper extremity. Allergies: Penicillin Medications: See MAR DAMION Const: As per HPI Eyes : No pain discharge or redness or change in visual acuity ENT: No pain, sore throat, congestion, congestion, dysphagia or discharge Respiratory: No shortness of breath, cough, sputum, wheezing, or pleuritic pain Cardiovascular: No chest pain, palpitation, PND, or edema GI : no change in appetite, abdominal pain, nausea, vomiting, diarrhea, consti pation, or change in the color his stool Genitourinary: No dysuria, hematuria, flank pain , discharge or CVA tenderness Musculoskeletal: As per HPI Skin: No rash, bruising or hives Neuro: As per HPI Endocrine: No polyuria, polydipsia, temperature intolerance Psych: No hallucination, depression, anxiety or suicidal ideation PMH/Family/Social Past Medical History Diabetes mellitus, hyperlipidemia, hypertension Medications Current Medications Ondansetron HCl (Zofran Inj) 4 mg BRIDGE ORDER PRN IV NAUSEA/VOMITING; Start 09/04/18 at 20:30; Stop 09/05/18 at 20:29 Acetaminophen (Tylenol Tab) 650 mg ER BRIDGE PRN PO .MILD PAIN 1-3 OR TEMP; Start 09/04/18 at 20:30; Stop 09/05/18 at 20:29 Sodium Chloride 1,000 ml @ 70 mls/hr [id number] IV ; Start 09/04/18 at 20:56; Stop 09/05/18 at 20:55 IV Flush (NS 3 ml) 3 ml PER PROTOCOL IV ; Start 09/04/18 at 21:00 Ondansetron HCl (Zofran Inj) 4 mg Q6H PRN IV NAUSEA/VOMITING; Start 09/04/18 at 21:00 Acetaminophen (Tylenol Tab) 650 mg Q6H PRN PO .PAIN 1-3 OR TEMP; Start 09/04/18 at 21:00 Docusate Sodium (Colace) 100 mg Q12H PRN PO .CONSTIPATION; Start 09/04/18 at 21:00 Bisacodyl (Dulcolax) 5 mg DAILY PRN PO .CONSTIPATION; Start 09/04/18 at 21:00 Coded Allergies: Penicillins (Unverified Allergy, Unknown, HIVES, 08/24/18) Past Surgical History Right shoulder surgery Family History Significant Family History: no pertinent family hx Social History Alcohol Use: none Smoking Status: Former smoker Drug Use: none Exam/Review of Systems Vital Signs Vitals Vital Signs Date Temp Pulse Resp B/P (MAP) Pulse Ox O2 O2 Flow FiO2 Time Delivery Rate 09/04/18 59 21 102/62 98 Room Air 22:40 (75) 09/04/18 98.5 16:38 Exam Exam General: Patient is a pleasant female currently lying in bed in no acute distress HEENT: Atraumatic, normocephalic. The pupils are equal, round and reactive. Extraocular motor are intact Neck: Supple with full range of motion. No rigidity or meningismus Chest: Nontender Lungs: Clear to auscultation bilaterally no crackles rales or wheezing Heart: Normal S1-S2, Regular rhythm and rate. No murmur, S3, or S4 Abdomen: Soft , nontender, nondistended , bowel sounds are present. No guarding no rebound tenderness , No masses or organomegaly. No costovertebral temporal angle mass Extremities: Normal to inspection, no edema no cyanosis Neurologic: Normal mental status, speech normal, cranial nerves II through XII are intact, sensation intact, decreased strength of the bilateral upper extremities greater on the left, strength 3 out of 5 in bilateral lower extremities. Difficult for patient to initiate sitting up without assistance. Positive bilateral lower extremity straight leg test. Tenderness to palpation of the lumbar spine. Tenderness palpation over the cervical spine., Weakness of the trunk Additional Comments PROCEDURE: XR Ankle. CLINICAL INDICATION: Ankle pain. Trauma. TECHNIQUE: AP, lateral and oblique views of the right ankle were performed. COMPARISON: There are no similar studies submitted for comparison. FINDINGS: There is normal bone mineralization. There is an Achilles enthesophyte. There is no acute fracture or dislocation. The ankle mortise is intact. No osseous lesion is identified. There is no soft tissue swelling. IMPRESSION: No acute fracture or dislocation. Achilles enthesophyte Further findings as detailed above. RPTAT: HVF .Dave Parry MD, Date Time Electronically viewed and signed by .Dave Parry MD, MD on 09/04/2018 21:13 .F/ CC: RAÚL RODRIGUEZ MD [id number] PROCEDURE: XR Hip 2 Views. CLINICAL INDICATION: Right hip pain and trauma. TECHNIQUE: AP and frog lateral views of the right hip were performed. COMPARISON: None. FINDINGS: Mineralization: Normal. Fracture: None. Bony lesions: None. Interosseous spaces: Mild narrowing right hip joint. Degenerative changes in the visualized lower lumbar spine. Soft tissues: Few phleboliths in the right pelvis. Other: None. IMPRESSION: No visualized traumatic injury. 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 Degenerative changes in the visualized lower lumbar spine. If there is high clinical suspicion for traumatic injury, further evaluation with CT should be considered. RPTAT: AA .Soto Hughes MD, Date Time Electronically viewed and signed by .Soto Hughes MD, on 09/04/2018 21:09 .P/ CC: RAÚL RODRIGUEZ MD [id number] PROCEDURE: XR Chest. CLINICAL INDICATION: Pain TECHNIQUE: Frontal chest x-ray was obtained. COMPARISON: None. FINDINGS: The heart is not enlarged. Mediastinum is not widened. No hilar masses seen. Lungs are clear of any infiltrates. There is no effusion or pneumothorax. The osseous structures appear normal. IMPRESSION: No evidence for active cardiopulmonary disease. .Ketan Dawn MD, MD Date Time Electronically viewed and signed by .Ketan Dawn MD, on 09/04/2018 22:44 .A/ CC: OLIVIA STACK [id number] OLIVIA STACK Sep 05, 2018 00:17
[2018-09-05] MEDS ORDERED: ONDANSETRON 4 MG INJ IV STA (00:44)
[2018-09-05] MEDS ORDERED: morphine 4 MG/ML VIAL IV STA (00:44)
[2018-09-05] MEDS: SOD CHLORIDE 0.9% 1,000 ML IV SCH ×2 (05:25→11:14)
[2018-09-05] MEDS ORDERED: METHYLPRED. NA SUCC 1,000 MG in DEXTROSE 5% 100 ML IVPB ONE (05:30)
[2018-09-05] MEDS ORDERED: GLUCOSE GEL 15 GRAM TUBE BUCCAL PRN (06:30)
[2018-09-05] MEDS ORDERED: GLUCAGON 1 MG INJ IM PRN (06:30)
[2018-09-05] MEDS ORDERED: DEXTROSE 50% 50 ML SYRINGE IV PRN ×2 (06:30)
[2018-09-05] MEDS ORDERED: GLUCOSE GEL 15 GRAM TUBE PO PRN ×2 (06:30)
[2018-09-05] MEDS ORDERED: LORAZEPAM 2 MG INJ IV PRN (07:00)
[2018-09-05] MEDS ORDERED: INSULIN GLARGINE [LANTus] (100 UNITS/ML) SYG SC SCH ×2 (08:00)
[2018-09-05] MEDS ORDERED: INSULIN ASPART [NOVOLOG] 3 ML PEN SC SCH (08:00)
[2018-09-05] MEDS: VITAMIN B COMPLEX/VIT C CAP PO SCH (08:15)
[2018-09-05 10:36] VITALS: BP 148/79; PULSE 92; RESP 17
[2018-09-05 10:39] VITALS: Ht 154.9 cm; Wt 83.0 kg
--- NOTE | 2018-09-05 12:42 | QN ---
Documentation Comment 57 yo F w/obesity,dm2,htn admitted w/lower backpain/deborah upper/lower extremities numbness, difficulty w/ambulation and weightbearingx 3 wks.. Pt also had some "flu-like" illness prior to the onset of weakness.. she was seen here at [facility] ER and no source identified other thana possible gastroenetritis...No cultures drawn at that time..White count was stable. Pending spinal MRI to r/o acute spinal level radiculopathy. Depending MRI, one would also consider a short course steroid... In light of flu-like symptoms couple wks ago with Lactic acidosis this admi,t I will add WNV IGG/IGM. Another step would be a LP if MRI unrevealing...will d/w neurologist. F/u cultures ordered. Pt also may have DM neuropathy. Add gabapentin... Pt eval for stretching/strengthening exercise.. Add vitamin D level and tx accordingly.. Seen pt in collaboration w/GENARO Nogueira V. [facility] Sep 05, 2018 12:42
--- NOTE | 2018-09-05 12:53 | CONSI ---
Assessment/Plan Assessment/Plan Assessment/Plan (Recall) 57 F c/ Hx of DM2, and HLD...who presents for evaluation of slowly progressive left sided weakness and sensory loss, for which neurology is consulted.. 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 Cervical myelopathy is not entirely excluded.. A cerebral process is least likely.. P: Agree w/ MRI Brain and C spine for further characterization Add MRI T spine Lumbar puncture for CSF evaluation PT/OT as necessary Other management and supportive care per primary Consultation Date/Type/Reason Admit Date/Time Type of Consult Neurology Reason for Consultation b/l hand and left foot weakness and numbness. Requesting Provider: OLIVIA STACK Date/Time of Note DATE: 09/05/18 TIME: 12:40 Hx of Present Illness This is a 57-year-old female, with history of hypertension and high cholesterol, returns to the emergency department 24 hours after being seen and evaluated for generalized weakness. Today, the patient presents to the emergency department, brought in by ambulance after sustaining a ground-level fall where she denied any head trauma, according to the patient, caused by worsening of weakness in her lower extremities. Some times have been going on since 08/18 and at that time she presented to the emergency department with symptoms consistent with acute gastroenteritis. After that, the patient slowly developed progressive asymmetrical weakness of the lower extremities that now is compromising the upper extremities. Reports that originally her weakness is on the left side now it is going to the right. The patient denies recent fever or chills, no chest pain or shortness of breath, no abdominal pain, no diarrhea or constipation. On 08/19/2018, the patient was evaluated at [facility] where she had a carotid ultrasound and a CT of the head that were negative for stroke. The patient and her family reports being in her usual state of health, ambulating, performing the activities of daily living without any difficulty 1 until 3 weeks ago. Since last week, the patient has not been able to ambulate, not been able to perform ADL without assistance. Her daughter was with her at the bedside states that they require assistance to help her up. Patient does report cervical spine pain as well as lumbar spine pain. Patient denies any any chest pain or difficulty breathing. She denies any fevers. Denies any headaches or vision changes. She does report right shoulder surgery in the past so she does have chronic weakness of the right upper extremity. o/w neg Objective Exam Vitals Vital Signs Date Temp Pulse Resp B/P (MAP) Pulse Ox O2 O2 Flow FiO2 Time Delivery Rate 09/05/18 97.8 92 17 148/79 100 Room Air 10:36 (102) Exam PE: Gen Appearance: No Apparent Distress HEENT: Normocephalic Cardiovascular: Regular rate Lungs: Clear bilaterally Abdomen: Soft Extremities: Dry NE: The patient was alert and oriented. Language was normal. Fund of knowledge was normal. Pupils were equal and reactive to light. There was no afferent pupillary defect. Visual newman were normal. Funduscopic examination was limited. Extra-ocular movements were full. Ptosis was absent. There was no nystagmus. Facial sensation was normal. Face was symmetric with normal strength. Hearing was intact. Palate movements were normal. Neck strength was normal. There was normal tongue bulk and speed of movement. Tone was normal. Muscle bulk was normal. I did not see fasciculations. Arms were strong proximally, b/l...though there was moderate left hand weakness.. Legs were strong proximally, though there was moderate left foot weakness.. Vibration sensation was reduced on the left foot, o/w nl. Temperature and pinprick sensation was reduced on the left foot, o/w nl. Rapid alternating movements were limited by weakness. There was no dysmetria. There was no intention tremor. Gait was deferred due to bedrest. Arm reflexes were 2+ and symmetric; patellar reflexes were 2+ and symmetric.. ankle jerks were asymmetric - diminished on the left.. Choudhury's sign was absent. Plantar responses were flexor. Results Result Diagram: 09/05/1851709/05/1818 Results 24hrs Laboratory Tests Test 09/04/18 18:59 09/04/18 19:08 09/04/18 21:06 09/05/18 05:14 Urine Color YELLOW Urine Clarity CLEAR Urine pH 5.0 Urine Specific 1.006 Hood Urine Ketones NEGATIVE Urine Nitrite NEGATIVE Urine Bilirubin NEGATIVE Urine Urobilinogen NEGATIVE Urine Leukocyte NEGATIVE Esterase Urine Hemoglobin NEGATIVE Urine Glucose NEGATIVE Urine Total Protein NEGATIVE Urine Opiates Screen Negative Urine Barbiturates Negative Urine Amphetamines Negative Screen Urine Negative Benzodiazepines Screen Urine Cocaine Screen Negative Urine Cannabinoids Negative White Blood Count 6.7 Red Blood Count 5.16 Hemoglobin 15.0 Hematocrit 45.4 Mean Corpuscular 88.0 Volume Mean Corpuscular 29.1 Hemoglobin Mean Corpuscular 33.0 Hemoglobin Concent Red Cell 12.2 Distribution Width Platelet Count 340 Mean Platelet Volume 10.9 H Immature 0.300 Granulocytes % Neutrophils % 53.0 Lymphocytes % 36.6 Monocytes % 5.7 Eosinophils % 3.4 Basophils % 1.0 Nucleated Red Blood 0.0 Cells % Immature 0.020 Granulocytes # Neutrophils # 3.6 Lymphocytes # 2.5 Monocytes # 0.4 Eosinophils # 0.2 Basophils # 0.1 Nucleated Red Blood 0.0 Cells # Sodium Level 139 Potassium Level 5.2 H Chloride Level 101 Carbon Dioxide Level 25 Anion Gap 13 Blood Urea Nitrogen 17 Creatinine 0.65 Est Glomerular > 60 Filtrat Rate mL/min Glucose Level 130 Lactic Acid Level 2.8 *H 1.8 Calcium Level 9.8 Total Bilirubin 0.5 Direct Bilirubin 0.00 Indirect Bilirubin 0.5 Aspartate Amino 30 Transf (AST/SGOT) Alanine 48 Aminotransferase (AL T/SGPT) Alkaline Phosphatase 93 Total Protein 7.5 Albumin 4.4 Globulin 3.10 Albumin/Globulin 1.41 Ratio Free Thyroxine Index 2.79 Thyroxine (T4) 9.6 Triiodothyronine 29.1 (T3) Uptake Salicylates Level < 1.0 L Acetaminophen Level < 10.0 L Ethyl Alcohol Level < 10.0 H HIV (1&2) Antibody NEGATIVE Erythrocyte 21 Sedimentation Rate Creatine Kinase 66 C-Reactive Protein < 0.5 Test 09/05/18 05:18 09/05/18 08:09 White Blood Count 6.5 Red Blood Count 4.38 Hemoglobin 12.9 Hematocrit 39.0 Mean Corpuscular 89.0 Volume Mean Corpuscular 29.5 Hemoglobin Mean Corpuscular 33.1 Hemoglobin Concent Red Cell 12.2 Distribution Width Platelet Count 292 Mean Platelet Volume 10.9 H Immature 0.200 Granulocytes % Neutrophils % 41.7 Lymphocytes % 46.9 Monocytes % 6.2 Eosinophils % 4.2 Basophils % 0.8 Nucleated Red Blood 0.0 Cells % Immature 0.010 Granulocytes # Neutrophils # 2.7 Lymphocytes # 3.1 H Monocytes # 0.4 Eosinophils # 0.3 Basophils # 0.1 Nucleated Red Blood 0.0 Cells # Sodium Level 140 Potassium Level 4.1 Chloride Level 107 Carbon Dioxide Level 26 Anion Gap 7 Blood Urea Nitrogen 16 Creatinine 0.70 Est Glomerular > 60 Filtrat Rate mL/min Glucose Level 116 Hemoglobin A1c 11.6 H Calcium Level 8.8 Magnesium Level 2.3 Total Bilirubin 0.7 Direct Bilirubin 0.00 Indirect Bilirubin 0.7 Aspartate Amino 25 Transf (AST/SGOT) Alanine 37 Aminotransferase (AL T/SGPT) Alkaline Phosphatase 61 Total Protein 6.2 # Albumin 3.6 Globulin 2.60 Albumin/Globulin 1.38 Ratio Triglycerides Level 193 H Cholesterol Level 133 LDL Cholesterol, 68 Calculated HDL Cholesterol 26 L Cholesterol/HDL 5.1 Ratio Thyroid Stimulating 7.190 H Hormone (TSH) Bedside Glucose 169 Past Medical History reviewed Home Meds Active Scripts Ibuprofen* (Motrin*) 600 Mg Tab, 600 MG PO Q6, #15 TAB Prov:JAYNE CRANE MD 08/18/18 Reported Medications Vitamin B Complex* (Vitamin B Complex*) 1 Each Tablet, 1 TAB PO DAILY, TAB 09/04/18 Pravastatin Sodium* (Pravastatin Sodium*) 40 Mg Tablet, 40 MG PO HS, TAB 09/04/18 Pioglitazone Hcl* (Pioglitazone Hcl*) 30 Mg Tablet, 30 MG PO DAILY, TAB 09/04/18 Omeprazole* (Omeprazole*) 20 Mg Capsule.dr, 20 MG PO DAILY, #30 CAP 09/04/18 Metformin* (Glucophage*) 1,000 Mg Tablet, 1000 MG PO BID, #60 TAB 09/04/18 Lisinopril* (Lisinopril*) 40 Mg Tablet, 40 MG PO DAILY, #30 TAB 09/04/18 Glyburide* (Glyburide*) 5 Mg Tablet, 5 MG PO BID, #60 TAB 09/04/18 Discontinued Reported Medications Metformin Hcl* (Metformin Hcl*) 1,000 Mg Tablet, 500 MG PO BID for 30 Days, #60 08/24/18 Glyburide* (Glyburide*) 5 Mg Tablet, 5 MG PO BID for 30 Days, #60 08/24/18 Pravastatin Sodium* (Pravastatin Sodium*) 40 Mg Tablet, 40 MG PO QHS for 30 Days, #30 08/24/18 Vitamin B Complex* (Vitamin B Complex*) 1 Each Tablet, 1 TAB PO DAILY, TAB 08/24/18 Lisinopril* (Lisinopril*) 40 Mg Tablet, 40 MG PO DAILY for 30 Days, #30 08/24/18 Omeprazole* (Omeprazole*) 20 Mg Capsule.dr, 20 MG PO DAILY for 60 Days, #60 08/24/18 Pioglitazone Hcl* (Pioglitazone Hcl*) 30 Mg Tablet, 30 MG PO DAILY for 90 Days, #90 08/24/18 Discontinued Scripts Docusate Sodium* (Colace*) 100 Mg Capsule, 100 MG PO TID, #30 CAP Prov:MICHEL WAHL 08/24/18 Ciprofloxacin Hcl* (Ciprofloxacin Hcl*) 500 Mg Tablet, 500 MG PO BID for 5 Days, TAB Prov:MICHEL WAHL S. 08/24/18 Dextromethorphan Hb-Promethazine Hcl* (Promethazine DM* Syrup) 473 Ml Syrup, 5 ML PO Q6 PRN for COUGH for 5 Days, ML Prov:JAYNE CRANE MD 08/18/18 Medications Current Medications Sodium Chloride 1,000 ml @ 70 mls/hr [id number] IV Last administered on 09/05/18at 05:25; Admin Dose 70 MLS/HR; Start 09/04/18 at 20:56; Stop 09/05/18 at 20:55 IV Flush (NS 3 ml) 3 ml PER PROTOCOL IV ; Start 09/04/18 at 21:00 Ondansetron HCl (Zofran Inj) 4 mg Q6H PRN IV NAUSEA/VOMITING; Start 09/04/18 at 21:00 Acetaminophen (Tylenol Tab) 650 mg Q6H PRN PO .PAIN 1-3 OR TEMP; Start 09/04/18 at 21:00 Docusate Sodium (Colace) 100 mg Q12H PRN PO .CONSTIPATION; Start 09/04/18 at 21:00 Bisacodyl (Dulcolax) 5 mg DAILY PRN PO .CONSTIPATION; Start 09/04/18 at 21:00 Diagnostic Test (Pha) (Accu-Chek) 1 ea 02 XX ; Start 09/06/18 at 02:00 Miscellaneous Information 1 ea NOTE XX ; Start 09/05/18 at 06:30 Glucose (Glutose) 15 gm Q15M PRN PO DECREASED GLUCOSE; Start 09/05/18 at 06:30 Glucose (Glutose) 22.5 gm Q15M PRN PO DECREASED GLUCOSE; Start 09/05/18 at 06:30 Dextrose (D50w Syringe) 25 ml Q15M PRN IV DECREASED GLUCOSE; Start 09/05/18 at 06:30 Dextrose (D50w Syringe) 50 ml Q15M PRN IV DECREASED GLUCOSE; Start 09/05/18 at 06:30 Glucagon (Glucagen) 1 mg Q15M PRN IM DECREASED GLUCOSE; Start 09/05/18 at 06:30 Glucose (Glutose) 15 gm Q15M PRN BUCCAL DECREASED GLUCOSE; Start 09/05/18 at 06:30 Insulin Glargine (Lantus) 15 units DAILY@0800 SC Last administered on 09/05/18at 08:53; Admin Dose 15 UNITS; Start 09/05/18 at 08:00 Vitamin B Complex/ Vitamin C (Berocca) 1 cap DAILY PO Last administered on 09/05/18at 08:15; Admin Dose 1 CAP; Start 09/05/18 at 09:00 Lorazepam (Ativan) 0.5 mg PRIOR TO MRI PRN IV prior to mri; Start 09/05/18 at 07:00 Insulin Aspart (Novolog Insulin Pen) NOVOLOG *MILD* ALGORITHM WITH MEALS BEDTIME SC ; Start 09/05/18 at 17:55 Allergies: Coded Allergies: Penicillins (Unverified Allergy, Unknown, HIVES, 08/24/18) Social History Alcohol Use: none Smoking Status: Light tobacco smoker Drug Use: none DALJIT SAXENA 18, 2019 12:50
[2018-09-05] MEDS: GABAPENTIN 300 MG CAP PO SCH ×2 (13:09→20:28)
[2018-09-05] MEDS: INSULIN ASPART [NOVOLOG] 3 ML PEN SC SCH ×3 (13:10→20:58)
[2018-09-05 14:00] VITALS: BP 105/60; PULSE 84; RESP 18
[2018-09-05 20:30] VITALS: BP 128/63; PULSE 90; RESP 17
[2018-09-05] MEDS ORDERED: INSULIN ASPART [NOVOLOG] 3 ML PEN SC ONE (21:00)
[2018-09-05] MEDS ORDERED: ACCU-CHEK XX ONE (23:00)
[2018-09-06] MEDS: SOD CHLORIDE 0.9% 1,000 ML IV SCH (01:15)
[2018-09-06] MEDS: ACCU-CHEK XX SCH (02:00)
[2018-09-06 03:01] VITALS: BP 109/55; PULSE 68; RESP 19
[2018-09-06] MEDS: KETOROLAC 15 MG INJ IV PRN ×3 (03:18→22:14)
[2018-09-06] MEDS ORDERED: NPH, HUMAN INSULIN ISOPHANE 3ML VIAL SC ONE (05:00)
[2018-09-06] MEDS ORDERED: METHYLPRED. NA SUCC 1,000 MG in DEXTROSE 5% 50 ML IVPB ONE (05:00)
[2018-09-06 07:52] VITALS: BP 118/68; PULSE 67; RESP 18
[2018-09-06] MEDS ORDERED: INSULIN GLARGINE [LANTus] (100 UNITS/ML) SYG SC SCH (08:00)
[2018-09-06] MEDS: VITAMIN B COMPLEX/VIT C CAP PO SCH (08:24)
[2018-09-06] MEDS: GABAPENTIN 300 MG CAP PO SCH ×3 (08:24→21:54)
[2018-09-06] MEDS: INSULIN ASPART [NOVOLOG] 3 ML PEN SC SCH ×5 (08:29→22:11)
--- NOTE | 2018-09-06 12:55 | CONS ---
Assessment/Plan Assessment/Plan Assessment/Plan (Recall) 57 F c/ Hx of DM2, and HLD...who presents for evaluation of slowly progressive left sided weakness and sensory loss, for which neurology is consulted.. 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 MRI C and T spine is reassuringly negative fo myelopathy. MRI brain is without evidence of a focal brain process... P: Await Lumbar puncture for CSF evaluation PT/OT as necessary Other management and supportive care per primary Consultation Date/Type/Reason Admit Date/Time Sep 04, 2018 at 20:33 Type of Consult Neurology Reason for Consultation b/l hand and left foot weakness and numbness. Requesting Provider: OLIVIA STACK Date/Time of Note DATE: 09/06/18 TIME: 12:53 24 HR Interval Summary Free Text/Dictation s/p MRI brain and C spine She notes strength is a little better today Exam/Review of Systems Exam Vitals Vital Signs Date Temp Pulse Resp B/P (MAP) Pulse Ox O2 O2 Flow FiO2 Time Delivery Rate 09/06/18 97.9 67 18 118/68 94 Room Air 07:52 (85) Intake and Output 09/05/18 09/05/18 09/06/18 1515:00 23:00 07:00 IntakeIntake Total 440 ml 1330 ml OutputOutput Total 500 ml 900 ml BalanceBalance -500 ml -460 ml 1330 ml Results Result Diagram: 09/06/18 0448 09/06/18 0448 Results 24hrs Laboratory Tests Test 09/05/18 12:56 09/05/18 13:04 09/05/18 20:31 09/05/18 23:35 Vitamin D 32.5 1,25-Dihydroxy Hepatitis B Surface NEGATIVE Antigen Hepatitis B Core NEGATIVE Total Antibody Hepatitis C Antibody NEGATIVE Bedside Glucose 263 H 374 H 250 H Test 09/06/18 02:14 09/06/18 04:47 09/06/18 04:48 09/06/18 08:23 Bedside Glucose 233 H 224 H 244 H White Blood Count 10.7 # Red Blood Count 4.57 Hemoglobin 13.4 Hematocrit 39.3 Mean Corpuscular 86.0 Volume Mean Corpuscular 29.3 Hemoglobin Mean Corpuscular 34.1 Hemoglobin Concent Red Cell 12.1 Distribution Width Platelet Count 331 Mean Platelet Volume 10.6 H Immature 0.700 H Granulocytes % Neutrophils % 83.6 H Lymphocytes % 12.1 L Monocytes % 3.5 Eosinophils % 0.0 Basophils % 0.1 Nucleated Red Blood 0.0 Cells % Immature 0.070 H Granulocytes # Neutrophils # 8.9 H Lymphocytes # 1.3 Monocytes # 0.4 Eosinophils # 0.0 Basophils # 0.0 Nucleated Red Blood 0.0 Cells # Sodium Level 140 Potassium Level 3.9 Chloride Level 108 Carbon Dioxide Level 22 Anion Gap 10 Blood Urea Nitrogen 16 Creatinine 0.52 Est Glomerular > 60 Filtrat Rate mL/min Glucose Level 238 #H Calcium Level 9.3 Total Bilirubin 0.6 Direct Bilirubin 0.00 Indirect Bilirubin 0.6 Aspartate Amino 24 Transf (AST/SGOT) Alanine 46 Aminotransferase (AL T/SGPT) Alkaline Phosphatase 68 Total Protein 6.7 Albumin 3.9 Globulin 2.80 Albumin/Globulin 1.39 Ratio Medications Medication Current Medications IV Flush (NS 3 ml) 3 ml PER PROTOCOL IV ; Start 09/04/18 at 21:00 Ondansetron HCl (Zofran Inj) 4 mg Q6H PRN IV NAUSEA/VOMITING; Start 09/04/18 at 21:00 Acetaminophen (Tylenol Tab) 650 mg Q6H PRN PO .PAIN 1-3 OR TEMP; Start 09/04/18 at 21:00 Docusate Sodium (Colace) 100 mg Q12H PRN PO .CONSTIPATION; Start 09/04/18 at 21:00 Bisacodyl (Dulcolax) 5 mg DAILY PRN PO .CONSTIPATION; Start 09/04/18 at 21:00 Diagnostic Test (Pha) (Accu-Chek) 1 ea 02 XX ; Start 09/06/18 at 02:00 Miscellaneous Information 1 ea NOTE XX ; Start 09/05/18 at 06:30 Glucose (Glutose) 15 gm Q15M PRN PO DECREASED GLUCOSE; Start 09/05/18 at 06:30 Glucose (Glutose) 22.5 gm Q15M PRN PO DECREASED GLUCOSE; Start 09/05/18 at 06:30 Dextrose (D50w Syringe) 25 ml Q15M PRN IV DECREASED GLUCOSE; Start 09/05/18 at 06:30 Dextrose (D50w Syringe) 50 ml Q15M PRN IV DECREASED GLUCOSE; Start 09/05/18 at 06:30 Glucagon (Glucagen) 1 mg Q15M PRN IM DECREASED GLUCOSE; Start 09/05/18 at 06:30 Glucose (Glutose) 15 gm Q15M PRN BUCCAL DECREASED GLUCOSE; Start 09/05/18 at 06:30 Vitamin B Complex/ Vitamin C (Berocca) 1 cap DAILY PO Last administered on 09/06/18 08:24; Admin Dose 1 CAP; Start 09/05/18 at 09:00 Lorazepam (Ativan) 0.5 mg PRIOR TO MRI PRN IV prior to mri; Start 09/05/18 at 07:00 Insulin Aspart (Novolog Insulin Pen) NOVOLOG *MILD* ALGORITHM WITH MEALS BEDTIME SC Last administered on 09/06/18 08:29; Admin Dose 3 UNIT; Start 09/05/18 at 17:55 Gabapentin (Neurontin) 300 mg TID PO Last administered on 09/06/18 08:24; Admin Dose 300 MG; Start 09/05/18 at 13:00 Insulin Glargine (Lantus) 20 units DAILY@0800 SC Last administered on 09/06/18 08:28; Admin Dose 20 UNITS; Start 09/06/18 at 08:00 Ketorolac Tromethamine (Toradol) 15 mg Q6H PRN IV PAIN Last administered on 09/06/18 03:18; Admin Dose 15 MG; Start 09/06/18 at 02:30; Stop 09/08/18 at 02:30 DALJIT SAXENA Sep 06, 2018 12:55
[2018-09-06] MEDS ORDERED: LIDOCAINE 1% (MDV) 20 ML INJ ONE (14:15)
--- NOTE | 2018-09-06 14:59 | PN ---
Date/Time of Note Date/Time of Note DATE: 09/06/18 TIME: 14:58 Assessment/Plan VTE Prophylaxis Risk score (from Ns)>0 risk: 2 SCD applied (from Ns): Yes Pharmacological prophylaxis: NA/contraindicated Pharm contraindication: low risk/ambulating Lines/Catheters IV [facility]ter [facility]from [facility] Peripheral IV Urinary Cath still in place: No Assessment/Plan Hospital Course SUBJECTIVE: Had physical therapy evaluation. No acute distress. OBJECTIVE: Vital signs-see below PHYSICAL EXAM: Constitutional: Adequately built,not in acute distress. HEENT: Head atraumatic and normocephalic. Eyes: Extraocular muscles intact. Anicteric sclerae. Pupils equal bilaterally, reactive to light. NECK: Supple without lymph node. CHEST: Clear and good breath sounds equally. No wheezing. No rhonchi. HEART: S1, S2. Regular rate and rhythm. ABDOMEN: Soft/non tender with no rebound tenderness. Bowel sounds were present. EXTREMITIES: No cyanosis, clubbing or edema. NEUROLOGIC: Alert and oriented x3. No focal deficit. No sensory deficit. PSYCHOSOCIAL: No signs of depression. INTEGUMENTARY: No open wounds. ASSESSMENT AND PLAN:57 yo F w/obesity,dm2,htn admitted w/lower backpain with progressive left-sided weakness and numbness.. 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 -Continue with PT/OT -F/u serology studies ordered. Chronic degenerative L5-S1 spondylosis -I discussed this with Dr. Gaspar () who reviewed MRI findings, and unlikely cause of her presenting symptoms. This is more like a chronic issue and this would need outpatient follow-up if she develops further neurovascular compr omise.. Poorly controlled diabetes -Sugar uncontrolled -Will adjust basal/bolus insulin dosage. Essential hypertension -Stable. Continue to monitor -Resume lisinopril with lower dose Dyslipidemia -Resume statin dosage adjustment secondary lactic acidosis. Diabetic neuropathy -On gabapentin Lactic acidosis -Follow-up CSF studies to rule out any infectious process. Not patient with no fevers or leukocytosis and most likely this is a type B unless proven otherwise. -Adjust dose of statin to low intensity. DVT prophylaxis: SCDs Disposition: Follow-up LP/CSF studies. Follow-up neurology recommendations. Patient was seen in collaboration with Dr. العراقي. Result Diagram: 09/06/18 0448 09/06/18 0448 Results 24hrs Laboratory Tests Test 09/05/18 20:31 09/05/18 23:35 09/06/18 02:14 09/06/18 04:47 Bedside Glucose 374 H 250 H 233 H 224 H Test 09/06/18 04:48 09/06/18 08:23 09/06/18 12:48 White Blood Count 10.7 # Red Blood Count 4.57 Hemoglobin 13.4 Hematocrit 39.3 Mean Corpuscular 86.0 Volume Mean Corpuscular 29.3 Hemoglobin Mean Corpuscular 34.1 Hemoglobin Concent Red Cell 12.1 Distribution Width Platelet Count 331 Mean Platelet Volume 10.6 H Immature 0.700 H Granulocytes % Neutrophils % 83.6 H Lymphocytes % 12.1 L Monocytes % 3.5 Eosinophils % 0.0 Basophils % 0.1 Nucleated Red Blood 0.0 Cells % Immature 0.070 H Granulocytes # Neutrophils # 8.9 H Lymphocytes # 1.3 Monocytes # 0.4 Eosinophils # 0.0 Basophils # 0.0 Nucleated Red Blood 0.0 Cells # Sodium Level 140 Potassium Level 3.9 Chloride Level 108 Carbon Dioxide Level 22 Anion Gap 10 Blood Urea Nitrogen 16 Creatinine 0.52 Est Glomerular > 60 Filtrat Rate mL/min Glucose Level 238 #H Calcium Level 9.3 Total Bilirubin 0.6 Direct Bilirubin 0.00 Indirect Bilirubin 0.6 Aspartate Amino 24 Transf (AST/SGOT) Alanine 46 Aminotransferase (AL T/SGPT) Alkaline Phosphatase 68 Total Protein 6.7 Albumin 3.9 Globulin 2.80 Albumin/Globulin 1.39 Ratio Bedside Glucose 244 H 331 H Exam/Review of Systems Exam Vitals Vital Signs Date Temp Pulse Resp B/P (MAP) Pulse Ox O2 O2 Flow FiO2 Time Delivery Rate 09/06/18 97.9 67 18 118/68 94 Room Air 07:52 (85) Intake and Output 09/05/18 09/05/18 09/06/18 1515:00 23:00 07:00 IntakeIntake Total 440 ml 1330 ml OutputOutput Total 500 ml 900 ml BalanceBalance -500 ml -460 ml 1330 ml Results Results 24hrs Laboratory Tests Test 09/05/18 20:31 09/05/18 23:35 09/06/18 02:14 09/06/18 04:47 Bedside Glucose 374 H 250 H 233 H 224 H Test 09/06/18 04:48 09/06/18 08:23 09/06/18 12:48 White Blood Count 10.7 # Red Blood Count 4.57 Hemoglobin 13.4 Hematocrit 39.3 Mean Corpuscular 86.0 Volume Mean Corpuscular 29.3 Hemoglobin Mean Corpuscular 34.1 Hemoglobin Concent Red Cell 12.1 Distribution Width Platelet Count 331 Mean Platelet Volume 10.6 H Immature 0.700 H Granulocytes % Neutrophils % 83.6 H Lymphocytes % 12.1 L Monocytes % 3.5 Eosinophils % 0.0 Basophils % 0.1 Nucleated Red Blood 0.0 Cells % Immature 0.070 H Granulocytes # Neutrophils # 8.9 H Lymphocytes # 1.3 Monocytes # 0.4 Eosinophils # 0.0 Basophils # 0.0 Nucleated Red Blood 0.0 Cells # Sodium Level 140 Potassium Level 3.9 Chloride Level 108 Carbon Dioxide Level 22 Anion Gap 10 Blood Urea Nitrogen 16 Creatinine 0.52 Est Glomerular > 60 Filtrat Rate mL/min Glucose Level 238 #H Calcium Level 9.3 Total Bilirubin 0.6 Direct Bilirubin 0.00 Indirect Bilirubin 0.6 Aspartate Amino 24 Transf (AST/SGOT) Alanine 46 Aminotransferase (AL T/SGPT) Alkaline Phosphatase 68 Total Protein 6.7 Albumin 3.9 Globulin 2.80 Albumin/Globulin 1.39 Ratio Bedside Glucose 244 H 331 H Medications Medication Current Medications IV Flush (NS 3 ml) 3 ml PER PROTOCOL IV ; Start 09/04/18 at 21:00 Ondansetron HCl (Zofran Inj) 4 mg Q6H PRN IV NAUSEA/VOMITING; Start 09/04/18 at 21:00 Acetaminophen (Tylenol Tab) 650 mg Q6H PRN PO .PAIN 1-3 OR TEMP; Start 09/04/18 at 21:00 Docusate Sodium (Colace) 100 mg Q12H PRN PO .CONSTIPATION; Start 09/04/18 at 21:00 Bisacodyl (Dulcolax) 5 mg DAILY PRN PO .CONSTIPATION; Start 09/04/18 at 21:00 Diagnostic Test (Pha) (Accu-Chek) 1 ea 02 XX ; Start 09/06/18 at 02:00 Miscellaneous Information 1 ea NOTE XX ; Start 09/05/18 at 06:30 Glucose (Glutose) 15 gm Q15M PRN PO DECREASED GLUCOSE; Start 09/05/18 at 06:30 Glucose (Glutose) 22.5 gm Q15M PRN PO DECREASED GLUCOSE; Start 09/05/18 at 06:30 Dextrose (D50w Syringe) 25 ml Q15M PRN IV DECREASED GLUCOSE; Start 09/05/18 at 06:30 Dextrose (D50w Syringe) 50 ml Q15M PRN IV DECREASED GLUCOSE; Start 09/05/18 at 06:30 Glucagon (Glucagen) 1 mg Q15M PRN IM DECREASED GLUCOSE; Start 09/05/18 at 06:30 Glucose (Glutose) 15 gm Q15M PRN BUCCAL DECREASED GLUCOSE; Start 09/05/18 at 06:30 Vitamin B Complex/ Vitamin C (Berocca) 1 cap DAILY PO Last administered on 09/06/18at 08:24; Admin Dose 1 CAP; Start 09/05/18 at 09:00 Lorazepam (Ativan) 0.5 mg PRIOR TO MRI PRN IV prior to mri; Start 09/05/18 at 07:00 Insulin Aspart (Novolog Insulin Pen) NOVOLOG *MILD* ALGORITHM WITH MEALS BEDTIME SC Last administered on 09/06/18 12:52; Admin Dose 5 UNIT; Start 09/05/18 at 17:55 Gabapentin (Neurontin) 300 mg TID PO Last administered on 09/06/18 12:50; Admin Dose 300 MG; Start 09/05/18 at 13:00 Insulin Glargine (Lantus) 20 units DAILY@0800 SC Last administered on 09/06/18at 08:28; Admin Dose 20 UNITS; Start 09/06/18 at 08:00 Ketorolac Tromethamine (Toradol) 15 mg Q6H PRN IV PAIN Last administered on 09/06/18at 12:50; Admin Dose 15 MG; Start 09/06/18 at 02:30; Stop 09/08/18 at 02:30 GENARO PAGE NP Sep 06, 2018 14:59
[2018-09-06 16:11] VITALS: BP 125/69; PULSE 75; RESP 20
[2018-09-06 21:03] VITALS: BP 111/67; PULSE 68; RESP 18
[2018-09-06] MEDS: ATORVASTATIN 10 MG TAB PO SCH (21:54)
[2018-09-06] MEDS ORDERED: INSULIN ASPART [NOVOLOG] 3 ML PEN SC ONE (22:00)
[2018-09-06] MEDS ORDERED: ACCU-CHEK XX ONE (22:30)
[2018-09-07] MEDS: ACCU-CHEK XX SCH (02:00)
[2018-09-07 02:30] VITALS: BP 110/61; PULSE 64; RESP 18
[2018-09-07 07:50] VITALS: BP 100/59; PULSE 52; RESP 18
[2018-09-07] MEDS: INSULIN GLARGINE [LANTus] (100 UNITS/ML) SYG SC SCH (08:44)
[2018-09-07] MEDS: VITAMIN B COMPLEX/VIT C CAP PO SCH (08:45)
[2018-09-07] MEDS: INSULIN ASPART [NOVOLOG] 3 ML PEN SC SCH ×7 (08:46→21:00)
[2018-09-07] MEDS: GABAPENTIN 300 MG CAP PO SCH ×3 (08:50→20:49)
[2018-09-07] MEDS: LISINOPRIL 10 MG TAB PO SCH (08:51)
[2018-09-07] MEDS: KETOROLAC 15 MG INJ IV PRN (08:52)
[2018-09-07] MEDS: BISACODYL (EC) 5 MG TAB PO PRN (08:56)
--- NOTE | 2018-09-07 11:09 | CONS ---
Assessment/Plan Assessment/Plan Assessment/Plan (Recall) 57 F c/ Hx of DM2, and HLD...who presents for evaluation of slowly progressive left sided weakness and sensory loss, for which neurology is consulted.. 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 MRI C and T spine is reassuringly negative fo myelopathy. MRI brain is without evidence of a focal brain process... CSF confirms a mild inflammatory process P: Add West Nile serologies PT/OT as able EMG/NCS, which may be done as an outpatient Other management and supportive care per primary Consultation Date/Type/Reason Admit Date/Time Sep 04, 2018 at 20:33 Type of Consult Neurology Reason for Consultation b/l hand and left foot weakness and numbness. Requesting Provider: OLIVIA STACK Date/Time of Note DATE: 09/07/18 TIME: 11:05 24 HR Interval Summary Free Text/Dictation s/p LP Exam/Review of Systems Exam Vitals Vital Signs Date Temp Pulse Resp B/P (MAP) Pulse Ox O2 O2 Flow FiO2 Time Delivery Rate 09/07/18 52 18 100/59 95 Room Air 07:50 (73) 09/07/18 97.6 02:30 Intake and Output 09/06/18 09/06/18 09/07/18 1515:00 23:00 07:00 IntakeIntake Total 200 ml 360 ml OutputOutput Total 500 ml 350 ml 400 ml BalanceBalance -500 ml -150 ml -40 ml Results Result Diagram: 09/07/18 0441 09/07/18 0441 Results 24hrs Laboratory Tests Test 09/06/18 12:48 09/06/18 15:30 09/06/18 17:52 09/06/18 18:32 Bedside Glucose 331 H 342 H 315 H CSF Tubes Submitted 4 CSF Volume 4.0 CSF Appearance CLEAR CSF Color COLORLESS CSF WBC 17 *H CSF RBC 1000 H CSF Cell Count Tube TUBE#1 # CSF Mononuclear 94.1 Cells % (Auto) CSF Polynuclear WBCs 5.9 (%) CSF Glucose 155 H CSF Total Protein 103 H Test 09/06/18 21:33 09/06/18 21:56 09/07/18 00:04 09/07/18 02:50 Bedside Glucose 308 H 307 H 250 H 215 Test 09/07/18 04:41 09/07/18 08:23 White Blood Count 14.0 #H Red Blood Count 4.46 Hemoglobin 13.1 Hematocrit 39.0 Mean Corpuscular 87.4 Volume Mean Corpuscular 29.4 Hemoglobin Mean Corpuscular 33.6 Hemoglobin Concent Red Cell 12.2 Distribution Width Platelet Count 335 Mean Platelet Volume 11.1 H Immature 0.500 H Granulocytes % Neutrophils % 80.1 H Lymphocytes % 14.9 L Monocytes % 4.4 Eosinophils % 0.0 Basophils % 0.1 Nucleated Red Blood 0.0 Cells % Immature 0.070 H Granulocytes # Neutrophils # 11.2 H Lymphocytes # 2.1 Monocytes # 0.6 Eosinophils # 0.0 Basophils # 0.0 Nucleated Red Blood 0.0 Cells # Sodium Level 142 Potassium Level 4.0 Chloride Level 107 Carbon Dioxide Level 22 Anion Gap 13 Blood Urea Nitrogen 20 Creatinine 0.56 Est Glomerular > 60 Filtrat Rate mL/min Glucose Level 201 Calcium Level 8.9 Total Bilirubin 0.5 Direct Bilirubin 0.00 Indirect Bilirubin 0.5 Aspartate Amino 18 Transf (AST/SGOT) Alanine 31 Aminotransferase (AL T/SGPT) Alkaline Phosphatase 68 Total Protein 6.6 Albumin 3.6 Globulin 3.00 Albumin/Globulin 1.20 Ratio Bedside Glucose 156 Medications Medication Current Medications IV Flush (NS 3 ml) 3 ml PER PROTOCOL IV ; Start 09/04/18 at 21:00 Ondansetron HCl (Zofran Inj) 4 mg Q6H PRN IV NAUSEA/VOMITING; Start 09/04/18 at 21:00 Acetaminophen (Tylenol Tab) 650 mg Q6H PRN PO .PAIN 1-3 OR TEMP; Start 09/04/18 at 21:00 Docusate Sodium (Colace) 100 mg Q12H PRN PO .CONSTIPATION; Start 09/04/18 at 21:00 Bisacodyl (Dulcolax) 5 mg DAILY PRN PO .CONSTIPATION Last administered on 09/07/18at 08:56; Admin Dose 5 MG; Start 09/04/18 at 21:00 Diagnostic Test (Pha) (Accu-Chek) 1 ea 02 XX ; Start 09/06/18 at 02:00 Miscellaneous Information 1 ea NOTE XX ; Start 09/05/18 at 06:30 Glucose (Glutose) 15 gm Q15M PRN PO DECREASED GLUCOSE; Start 09/05/18 at 06:30 Glucose (Glutose) 22.5 gm Q15M PRN PO DECREASED GLUCOSE; Start 09/05/18 at 06:30 Dextrose (D50w Syringe) 25 ml Q15M PRN IV DECREASED GLUCOSE; Start 09/05/18 at 06:30 Dextrose (D50w Syringe) 50 ml Q15M PRN IV DECREASED GLUCOSE; Start 09/05/18 at 06:30 Glucagon (Glucagen) 1 mg Q15M PRN IM DECREASED GLUCOSE; Start 09/05/18 at 06:30 Glucose (Glutose) 15 gm Q15M PRN BUCCAL DECREASED GLUCOSE; Start 09/05/18 at 06:30 Vitamin B Complex/ Vitamin C (Berocca) 1 cap DAILY PO Last administered on 09/07/18at 08:45; Admin Dose 1 CAP; Start 09/05/18 at 09:00 Lorazepam (Ativan) 0.5 mg PRIOR TO MRI PRN IV prior to mri; Start 09/05/18 at 07:00 Insulin Aspart (Novolog Insulin Pen) NOVOLOG *MILD* ALGORITHM WITH MEALS BEDTIME SC Last administered on 09/07/18 08:46; Admin Dose 1 UNIT; Start 09/05/18 at 17:55 Gabapentin (Neurontin) 300 mg TID PO Last administered on 09/07/18 08:50; Admin Dose 300 MG; Start 09/05/18 at 13:00 Ketorolac Tromethamine (Toradol) 15 mg Q6H PRN IV PAIN Last administered on 09/07/18 08:52; Admin Dose 15 MG; Start 09/06/18 at 02:30; Stop 09/08/18 at 02:30 Lisinopril (Zestril) 10 mg DAILY PO ; Start 09/07/18 at 09:00 Atorvastatin Calcium (Lipitor) 10 mg HS PO Last administered on 09/06/18 21:54; Admin Dose 10 MG; Start 09/06/18 at 21:00 Insulin Glargine (Lantus) 24 units DAILY@0800 SC Last administered on 09/07/18at 08:44; Admin Dose 24 UNITS; Start 09/07/18 at 08:00 Insulin Aspart (Novolog Insulin Pen) 8 unit WITH MEALS SC Last administered on 6/20/19at 08:47; Admin Dose 8 UNIT; Start 09/06/18 at 17:55 DALJIT SAXENA Sep 07, 2018 11:09
--- NOTE | 2018-09-07 12:45 | PN ---
Date/Time of Note Date/Time of Note DATE: 09/07/18 TIME: 12:41 Assessment/Plan VTE Prophylaxis Risk score (from Ns)>0 risk: 3 SCD applied (from Ns): Yes Pharmacological prophylaxis: NA/contraindicated Pharm contraindication: low risk/ambulating Lines/Catheters IV Catheter Type (from Nrsg): Saline Lock Urinary Cath still in place: No Assessment/Plan Hospital Course SUBJECTIVE: Had physical therapy evaluation. No acute distress. OBJECTIVE: Vital signs-see below PHYSICAL EXAM: Constitutional: Adequately built,not in acute distress. HEENT: Head atraumatic and normocephalic. Eyes: Extraocular muscles intact. Anicteric sclerae. Pupils equal bilaterally, reactive to light. NECK: Supple without lymph node. CHEST: Clear and good breath sounds equally. No wheezing. No rhonchi. HEART: S1, S2. Regular rate and rhythm. ABDOMEN: Soft/non tender with no rebound tenderness. Bowel sounds were present. EXTREMITIES: No cyanosis, clubbing or edema. NEUROLOGIC: Alert and oriented x3. No focal deficit. No sensory deficit. PSYCHOSOCIAL: No signs of depression. INTEGUMENTARY: No open wounds. ASSESSMENT AND PLAN:57 yo F w/obesity,dm2,htn admitted w/lower backpain with progressive left-sided weakness and numbness.. 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 -F/u WNV serologies -Continue with PT/OT Lactic acidosis -Today white count also went up (note LP yesterday). No fevers follow-up CSF studies to rule out any infectious process. Not patient with no fevers or leukocytosis and most likely this is a type B unless proven otherwise. -note adjusted statin dose Chronic degenerative L5-S1 spondylosis -I discussed this with Dr. Gaspar () who reviewed MRI findings, and unlikely cause of her presenting symptoms. This is more like a chronic issue and this would need outpatient follow-up if she develops further neurovascular compromise.. -Pain control/PT/Rehab Poorly controlled diabetes -cont. basal/bolus Essential hypertension -Stable. -cont.lisinopril Dyslipidemia -on statin appropriately dosed Diabetic neuropathy -On gabapentin DVT prophylaxis: SCDs Disposition: Follow-up serologies. Follow-up neurology recommendations. Patient was seen in collaboration with Dr. العراقي. Result Diagram: 09/07/18 0441 09/07/18 0441 Results 24hrs Laboratory Tests Test 09/06/18 12:48 09/06/18 15:30 09/06/18 17:52 09/06/18 18:32 Bedside Glucose 331 H 342 H 315 H CSF Tubes Submitted 4 CSF Volume 4.0 CSF Appearance CLEAR CSF Color COLORLESS CSF WBC 17 *H CSF RBC 1000 H CSF Cell Count Tube TUBE#1 # CSF Mononuclear 94.1 Cells % (Auto) CSF Polynuclear WBCs 5.9 (%) CSF Glucose 155 H CSF Total Protein 103 H Test 09/06/18 21:33 09/06/18 21:56 09/07/18 00:04 09/07/18 02:50 Bedside Glucose 308 H 307 H 250 H 215 Test 09/07/18 04:41 09/07/18 08:23 White Blood Count 14.0 #H Red Blood Count 4.46 Hemoglobin 13.1 Hematocrit 39.0 Mean Corpuscular 87.4 Volume Mean Corpuscular 29.4 Hemoglobin Mean Corpuscular 33.6 Hemoglobin Concent Red Cell 12.2 Distribution Width Platelet Count 335 Mean Platelet Volume 11.1 H Immature 0.500 H Granulocytes % Neutrophils % 80.1 H Lymphocytes % 14.9 L Monocytes % 4.4 Eosinophils % 0.0 Basophils % 0.1 Nucleated Red Blood 0.0 Cells % Immature 0.070 H Granulocytes # Neutrophils # 11.2 H Lymphocytes # 2.1 Monocytes # 0.6 Eosinophils # 0.0 Basophils # 0.0 Nucleated Red Blood 0.0 Cells # Sodium Level 142 Potassium Level 4.0 Chloride Level 107 Carbon Dioxide Level 22 Anion Gap 13 Blood Urea Nitrogen 20 Creatinine 0.56 Est Glomerular > 60 Filtrat Rate mL/min Glucose Level 201 Calcium Level 8.9 Total Bilirubin 0.5 Direct Bilirubin 0.00 Indirect Bilirubin 0.5 Aspartate Amino 18 Transf (AST/SGOT) Alanine 31 Aminotransferase (AL T/SGPT) Alkaline Phosphatase 68 Total Protein 6.6 Albumin 3.6 Globulin 3.00 Albumin/Globulin 1.20 Ratio Bedside Glucose 156 Exam/Review of Systems Exam Vitals Vital Signs Date Temp Pulse Resp B/P (MAP) Pulse Ox O2 O2 Flow FiO2 Time Delivery Rate 09/07/18 52 18 100/59 95 Room Air 07:50 (73) 09/07/18 97.6 02:30 Intake and Output 09/06/18 09/06/18 09/07/18 1515:00 23:00 07:00 IntakeIntake Total 200 ml 360 ml OutputOutput Total 500 ml 350 ml 400 ml BalanceBalance -500 ml -150 ml -40 ml Results Results 24hrs Laboratory Tests Test 09/06/18 12:48 09/06/18 15:30 09/06/18 17:52 09/06/18 18:32 Bedside Glucose 331 H 342 H 315 H CSF Tubes Submitted 4 CSF Volume 4.0 CSF Appearance CLEAR CSF Color COLORLESS CSF WBC 17 *H CSF RBC 1000 H CSF Cell Count Tube TUBE#1 # CSF Mononuclear 94.1 Cells % (Auto) CSF Polynuclear WBCs 5.9 (%) CSF Glucose 155 H CSF Total Protein 103 H Test 09/06/18 21:33 09/06/18 21:56 09/07/18 00:04 09/07/18 02:50 Bedside Glucose 308 H 307 H 250 H 215 Test 09/07/18 04:41 09/07/18 08:23 White Blood Count 14.0 #H Red Blood Count 4.46 Hemoglobin 13.1 Hematocrit 39.0 Mean Corpuscular 87.4 Volume Mean Corpuscular 29.4 Hemoglobin Mean Corpuscular 33.6 Hemoglobin Concent Red Cell 12.2 Distribution Width Platelet Count 335 Mean Platelet Volume 11.1 H Immature 0.500 H Granulocytes % Neutrophils % 80.1 H Lymphocytes % 14.9 L Monocytes % 4.4 Eosinophils % 0.0 Basophils % 0.1 Nucleated Red Blood 0.0 Cells % Immature 0.070 H Granulocytes # Neutrophils # 11.2 H Lymphocytes # 2.1 Monocytes # 0.6 Eosinophils # 0.0 Basophils # 0.0 Nucleated Red Blood 0.0 Cells # Sodium Level 142 Potassium Level 4.0 Chloride Level 107 Carbon Dioxide Level 22 Anion Gap 13 Blood Urea Nitrogen 20 Creatinine 0.56 Est Glomerular > 60 Filtrat Rate mL/min Glucose Level 201 Calcium Level 8.9 Total Bilirubin 0.5 Direct Bilirubin 0.00 Indirect Bilirubin 0.5 Aspartate Amino 18 Transf (AST/SGOT) Alanine 31 Aminotransferase (AL T/SGPT) Alkaline Phosphatase 68 Total Protein 6.6 Albumin 3.6 Globulin 3.00 Albumin/Globulin 1.20 Ratio Bedside Glucose 156 Medications Medication Current Medications IV Flush (NS 3 ml) 3 ml PER PROTOCOL IV ; Start 09/04/18 at 21:00 Ondansetron HCl (Zofran Inj) 4 mg Q6H PRN IV NAUSEA/VOMITING; Start 09/04/18 at 21:00 Acetaminophen (Tylenol Tab) 650 mg Q6H PRN PO .PAIN 1-3 OR TEMP; Start 09/04/18 at 21:00 Docusate Sodium (Colace) 100 mg Q12H PRN PO .CONSTIPATION; Start 09/04/18 at 21:00 Bisacodyl (Dulcolax) 5 mg DAILY PRN PO .CONSTIPATION Last administered on 09/07/18at 08:56; Admin Dose 5 MG; Start 09/04/18 at 21:00 Diagnostic Test (Pha) (Accu-Chek) 1 ea 02 XX ; Start 09/06/18 at 02:00 Miscellaneous Information 1 ea NOTE XX ; Start 09/05/18 at 06:30 Glucose (Glutose) 15 gm Q15M PRN PO DECREASED GLUCOSE; Start 09/05/18 at 06:30 Glucose (Glutose) 22.5 gm Q15M PRN PO DECREASED GLUCOSE; Start 09/05/18 at 0 6:30 Dextrose (D50w Syringe) 25 ml Q15M PRN IV DECREASED GLUCOSE; Start 09/05/18 at 06:30 Dextrose (D50w Syringe) 50 ml Q15M PRN IV DECREASED GLUCOSE; Start 09/05/18 at 06:30 Glucagon (Glucagen) 1 mg Q15M PRN IM DECREASED GLUCOSE; Start 09/05/18 at 06:30 Glucose (Glutose) 15 gm Q15M PRN BUCCAL DECREASED GLUCOSE; Start 09/05/18 at 06:30 Vitamin B Complex/ Vitamin C (Berocca) 1 cap DAILY PO Last administered on 09/07/18at 08:45; Admin Dose 1 CAP; Start 09/05/18 at 09:00 Lorazepam (Ativan) 0.5 mg PRIOR TO MRI PRN IV prior to mri; Start 09/05/18 at 07:00 Insulin Aspart (Novolog Insulin Pen) NOVOLOG *MILD* ALGORITHM WITH MEALS BEDTIME SC Last administered on 6/20/19at 08:46; Admin Dose 1 UNIT; Start 09/05/18 at 17:55 Gabapentin (Neurontin) 300 mg TID PO Last administered on 09/07/18 08:50; Admin Dose 300 MG; Start 09/05/18 at 13:00 Ketorolac Tromethamine (Toradol) 15 mg Q6H PRN IV PAIN Last administered on 09/07/18 08:52; Admin Dose 15 MG; Start 09/06/18 at 02:30; Stop 09/08/18 at 02:30 Lisinopril (Zestril) 10 mg DAILY PO ; Start 09/07/18 at 09:00 Atorvastatin Calcium (Lipitor) 10 mg HS PO Last administered on 09/06/18at 21:54; Admin Dose 10 MG; Start 09/06/18 at 21:00 Insulin Glargine (Lantus) 24 units DAILY@0800 SC Last administered on 09/07/18 08:44; Admin Dose 24 UNITS; Start 09/07/18 at 08:00 Insulin Aspart (Novolog Insulin Pen) 8 unit WITH MEALS SC Last administered on 09/07/18 08:47; Admin Dose 8 UNIT; Start 09/06/18 at 17:55 GENARO PAGE NP Sep 07, 2018 12:44
[2018-09-07 15:30] VITALS: BP 106/57; PULSE 52; RESP 18
--- NOTE | 2018-09-07 16:07 | CONS ---
DATE OF ADMISSION: 09/04/2018 DATE OF CONSULTATION: 09/07/2018 TYPE OF CONSULTATION: Infectious disease. REASON FOR CONSULTATION: Antibiotic management. HISTORY OF PRESENT ILLNESS: Wen Jones is a 57-year-old female who was seen in the emergency ro on 09/04/2018 with right knee pain. Her past problems include: 1. Hypertension. 2. Hypercholesterolemia. 3. Generalized weakness. The patient presents to the emergency room after sustaining a ground level fall because of weakness i n her lower extremities. Symptoms started approximately 08/18/2018. She presented to the emergency room with symptoms consistent with acute gastroenteritis. After that, she slowly developed progressi ve asymmetric weakness of lower extremities, but now it is involving her upper extremities as well. The patient denies recent fever or chills. On 08/19/2018, she was evaluated at [facility]. A carotid ultrasound and CT scan of the head were negative for stroke. Family says she was fine until about 1 to 3 weeks ago. Since last week, she has been unable to ambulate and not able to perform he r performance of daily living. PAST MEDICAL HISTORY: She had right shoulder surgery, history of diabetes and hypercholesterolemia a nd history of gastritis. She presented in a wheelchair anxious and weak. LABORATORY DATA: White count is 6.7, H and H of 15 and 45.4, platelet count ____. BUN and creatinin e is 17/0.65, glucose of 130. Leukocyte esterase was negative. Nitrite was negative. She had acute weakness. PHYSICAL EXAMINATION: SKIN: Without generalized rash. HEENT: Within normal limits. NECK: Supple. LYMPH NODES: None palpable. CHEST: Decreased breath sounds at the bases. HEART: Without murmur or gallop. ABDOMEN: Soft, nontender without organosplenomegaly or masses. EXTREMITIES: Without cyanosis, clubbing or edema. RECTAL AND GENITAL: Deferred. NEUROLOGIC: She has asymmetric muscle weakness prominent on the left lower extremity with decreased bilateral patellar reflexes. Sensations are intact. HOSPITAL COURSE: The patient was seen by Dr. Tere Munoz in neurology. 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 She has left-sided weakn ess, sensory loss. An MRI of the brain and C-spine was ordered. MRI and CT scan is negative for mye lopathy. MRI of the brain now shows no evidence of focal process. CSF confirmed some mild inflammat ory process. We added West Nile serologies. EMG and nerve conduction studies were suggested. Curre ntly, urine showed mixed gram-positive organisms, but otherwise blood cultures and CSF were negative. Spinal fluid showed 17 white cells per high-power field with glucose of 155, protein 103. Protein is slightly elevated. Serology is negative for hepatitis, for HIV. 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 She does not seem to have Guillain -[place] syndrome. She could have West Nile virus which is true, but she does not have bacterial proce ss at this point. She has elevated CSF, white count, protein and glucose consistent with inflammator y process. We will continue to follow in her care. I will dictate my findings to the hospitalist sondra Munoz. Dictated By: JIL PENG MD, JD/ANDRES Conf#: [id number] DID#: [id number] CC: OLIVIA STACK MD;*EndCC*
[2018-09-07] MEDS ORDERED: morphine 2 MG INJ IV PRN (17:00)
[2018-09-07] MEDS: MAGNESIUM HYDROXIDE 30ML CUP PO PRN (17:46)
[2018-09-07] MEDS: traMADol 50 MG TAB PO PRN (17:55)
[2018-09-07 20:35] VITALS: BP 104/66; PULSE 61; RESP 19
[2018-09-07] MEDS: ATORVASTATIN 10 MG TAB PO SCH (20:49)
[2018-09-07] MEDS: DOCUSATE SODIUM 100 MG CAP PO SCH (20:49)
[2018-09-08] VITALS (15 sets, daily range): BP systolic 72–139; BP diastolic 38–66; PULSE 68–89; RESP 18–19
[2018-09-08] MEDS: ACCU-CHEK XX SCH (02:00)
[2018-09-08] MEDS: INSULIN ASPART [NOVOLOG] 3 ML PEN SC SCH ×7 (07:50→20:34)
[2018-09-08] MEDS: DOCUSATE SODIUM 100 MG CAP PO SCH ×2 (08:21→20:33)
[2018-09-08] MEDS: CELECOXIB 100 MG CAP PO SCH (08:21)
[2018-09-08] MEDS: GABAPENTIN 300 MG CAP PO SCH ×3 (08:22→20:33)
[2018-09-08] MEDS: VITAMIN B COMPLEX/VIT C CAP PO SCH (08:22)
[2018-09-08] MEDS: LISINOPRIL 10 MG TAB PO SCH (08:22)
[2018-09-08] MEDS: INSULIN GLARGINE [LANTus] (100 UNITS/ML) SYG SC SCH (08:25)
--- NOTE | 2018-09-08 10:54 | CONS ---
Assessment/Plan Assessment/Plan Assessment/Plan (Recall) 57 F c/ Hx of DM2, and HLD...who presents for evaluation of slowly progressive left sided weakness and sensory loss, for which neurology is consulted.. 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 MRI C and T spine is reassuringly negative fo myelopathy. MRI brain is without evidence of a focal brain process... CSF confirms a mild inflammatory process P: Await West Nile serologies PT/OT as able EMG/NCS, which may be done as an outpatient Other management and supportive care per primary Consultation Date/Type/Reason Admit Date/Time Sep 04, 2018 at 20:33 Type of Consult Neurology Reason for Consultation b/l hand and left foot weakness and numbness. Requesting Provider: OLIVIA STACK Date/Time of Note DATE: 09/08/18 TIME: 10:53 24 HR Interval Summary Free Text/Dictation Continues acute care Exam/Review of Systems Exam Vitals Vital Signs Date Temp Pulse Resp B/P (MAP) Pulse Ox O2 O2 Flow FiO2 Time Delivery Rate 09/08/18 98.2 82 18 121/62 98 07:23 (81) 09/07/18 Room Air 15:30 Intake and Output 09/07/18 09/07/18 09/08/18 1515:00 23:00 07:00 IntakeIntake Total 560 ml 720 ml 120 ml BalanceBalance 560 ml 720 ml 120 ml Results Result Diagram: 09/08/18 0444 09/08/18 0444 Results 24hrs Laboratory Tests Test 09/07/18 12:38 09/07/18 17:45 09/07/18 20:53 09/08/18 04:44 Bedside Glucose 135 130 132 White Blood Count 9.8 # Red Blood Count 4.48 Hemoglobin 13.1 Hematocrit 39.8 Mean Corpuscular 88.8 Volume Mean Corpuscular 29.2 Hemoglobin Mean Corpuscular 32.9 Hemoglobin Concent Red Cell 12.5 Distribution Width Platelet Count 308 Mean Platelet Volume 10.6 H Immature 0.400 Granulocytes % Neutrophils % 42.1 Lymphocytes % 48.9 Monocytes % 6.0 Eosinophils % 2.3 Basophils % 0.3 Nucleated Red Blood 0.0 Cells % Immature 0.040 H Granulocytes # Neutrophils # 4.1 Lymphocytes # 4.8 H Monocytes # 0.6 Eosinophils # 0.2 Basophils # 0.0 Nucleated Red Blood 0.0 Cells # Sodium Level 143 Potassium Level 4.2 Chloride Level 107 Carbon Dioxide Level 25 Anion Gap 11 Blood Urea Nitrogen 24 H Creatinine 0.75 Est Glomerular > 60 Filtrat Rate mL/min Glucose Level 115 # Calcium Level 8.8 Total Bilirubin 0.5 Direct Bilirubin 0.00 Indirect Bilirubin 0.5 Aspartate Amino 29 Transf (AST/SGOT) Alanine 40 Aminotransferase (AL T/SGPT) Alkaline Phosphatase 57 Total Protein 5.8 L Albumin 3.3 Globulin 2.50 Albumin/Globulin 1.32 Ratio Test 09/08/18 08:17 Bedside Glucose 104 Medications Medication Current Medications IV Flush (NS 3 ml) 3 ml PER PROTOCOL IV ; Start 09/04/18 at 21:00 Ondansetron HCl (Zofran Inj) 4 mg Q6H PRN IV NAUSEA/VOMITING; Start 09/04/18 at 21:00 Acetaminophen (Tylenol Tab) 650 mg Q6H PRN PO .PAIN 1-3 OR TEMP; Start 09/04/18 at 21:00 Bisacodyl (Dulcolax) 5 mg DAILY PRN PO .CONSTIPATION Last administered on 09/07/18at 08:56; Admin Dose 5 MG; Start 09/04/18 at 21:00 Diagnostic Test (Pha) (Accu-Chek) 1 ea 02 XX ; Start 09/06/18 at 02:00 Miscellaneous Information 1 ea NOTE XX ; Start 09/05/18 at 06:30 Glucose (Glutose) 15 gm Q15M PRN PO DECREASED GLUCOSE; Start 09/05/18 at 06:30 Glucose (Glutose) 22.5 gm Q15M PRN PO DECREASED GLUCOSE; Start 09/05/18 at 06:30 Dextrose (D50w Syringe) 25 ml Q15M PRN IV DECREASED GLUCOSE; Start 09/05/18 at 06:30 Dextrose (D50w Syringe) 50 ml Q15M PRN IV DECREASED GLUCOSE; Start 09/05/18 at 06:30 Glucagon (Glucagen) 1 mg Q15M PRN IM DECREASED GLUCOSE; Start 09/05/18 at 06:30 Glucose (Glutose) 15 gm Q15M PRN BUCCAL DECREASED GLUCOSE; Start 09/05/18 at 06:30 Vitamin B Complex/ Vitamin C (Berocca) 1 cap DAILY PO Last administered on 09/08/18 08:22; Admin Dose 1 CAP; Start 09/05/18 at 09:00 Lorazepam (Ativan) 0.5 mg PRIOR TO MRI PRN IV prior to mri; Start 09/05/18 at 07:00 Insulin Aspart (Novolog Insulin Pen) NOVOLOG *MILD* ALGORITHM WITH MEALS BEDTIME SC Last administered on 09/07/18 08:46; Admin Dose 1 UNIT; Start 09/05/18 at 17:55 Gabapentin (Neurontin) 300 mg TID PO Last administered on 09/08/18 08:22; Ad min Dose 300 MG; Start 09/05/18 at 13:00 Lisinopril (Zestril) 10 mg DAILY PO Last administered on 09/08/18 08:22; Admin Dose 10 MG; Start 09/07/18 at 09:00 Atorvastatin Calcium (Lipitor) 10 mg HS PO Last administered on 09/07/18 20:49; Admin Dose 10 MG; Start 09/06/18 at 21:00 Insulin Glargine (Lantus) 24 units DAILY@0800 SC Last administered on 09/08/18 08:25; Admin Dose 24 UNITS; Start 09/07/18 at 08:00 Insulin Aspart (Novolog Insulin Pen) 8 unit WITH MEALS SC Last administered on 09/08/18 08:26; Admin Dose 8 UNIT; Start 09/06/18 at 17:55 Magnesium Hydroxide (Milk Of Mag) 30 ml DAILY PRN PO CONSTIPATION Last administered on 09/07/18 17:46; Admin Dose 30 ML; Start 09/07/18 at 16:00 Docusate Sodium (Colace) 100 mg BID PO Last administered on 09/08/18 08:21; Admin Dose 100 MG; Start 09/07/18 at 21:00 Morphine Sulfate (morphine) 1 mg Q4H PRN IV SEVERE PAIN LEVEL 7-10; Start 09/07/18 at 17:00 Celecoxib (Celebrex) 100 mg DAILY PO Last administered on 09/08/18 08:21; Admin Dose 100 MG; Start 09/08/18 at 09:00 Tramadol HCl (Ultram) 50 mg Q6H PRN PO MODERATE PAIN LEVEL 4-6 Last administered on 6/20/19at 17:55; Admin Dose 50 MG; Start 09/07/18 at 17:00 DALJIT SAXENA Sep 08, 2018 10:54
[2018-09-08] MEDS: MAGNESIUM HYDROXIDE 30ML CUP PO PRN (11:29)
[2018-09-08] MEDS: BISACODYL (EC) 5 MG TAB PO PRN (11:29)
--- NOTE | 2018-09-08 14:15 | CONS ---
Assessment/Plan Assessment/Plan Hospital Course (Demo Recall) Patient is alert feels good denies pain no fevers overnight. All cultures negative. Physical examination: Well-developed middle-aged woman who is alert in no distress head atraumatic normocephalic sclera nonicteric neck is supple chest rise symmetrical breath sounds clear heart S1-S2 abdomen soft bowel sounds present Assessment: 1. Left-sided weakness, neurology on case 2. Mild inflammatory process for CSF, no acute bacterial infection, CSF cultures negative 3. Diabetes and hypertension 4. Obesity Plan: Patient remains stable, pending results for West Nile virus, follow neurology recommendations Consultation Date/Type/Reason Admit Date/Time Sep 04, 2018 at 20:33 Initial Consult Date Type of Consult id Requesting Provider: OLIVIA STACK Date/Time of Note DATE: 09/08/18 TIME: 14:14 Exam/Review of Systems Exam Vitals Vital Signs Date Temp Pulse Resp B/P (MAP) Pulse Ox O2 O2 Flow FiO2 Time Delivery Rate 09/08/18 98.2 82 18 121/62 98 07:23 (81) 09/07/18 Room Air 15:30 Intake and Output 09/07/18 09/07/18 09/08/18 1515:00 23:00 07:00 IntakeIntake Total 560 ml 720 ml 120 ml BalanceBalance 560 ml 720 ml 120 ml Results Result Diagram: 09/08/18 0444 09/08/18 0444 Results 24hrs Laboratory Tests Test 09/07/18 17:45 09/07/18 20:53 09/08/18 04:44 09/08/18 08:17 Bedside Glucose 130 132 104 White Blood Count 9.8 # Red Blood Count 4.48 Hemoglobin 13.1 Hematocrit 39.8 Mean Corpuscular 88.8 Volume Mean Corpuscular 29.2 Hemoglobin Mean Corpuscular 32.9 Hemoglobin Concent Red Cell 12.5 Distribution Width Platelet Count 308 Mean Platelet Volume 10.6 H Immature 0.400 Granulocytes % Neutrophils % 42.1 Lymphocytes % 48.9 Monocytes % 6.0 Eosinophils % 2.3 Basophils % 0.3 Nucleated Red Blood 0.0 Cells % Immature 0.040 H Granulocytes # Neutrophils # 4.1 Lymphocytes # 4.8 H Monocytes # 0.6 Eosinophils # 0.2 Basophils # 0.0 Nucleated Red Blood 0.0 Cells # Sodium Level 143 Potassium Level 4.2 Chloride Level 107 Carbon Dioxide Level 25 Anion Gap 11 Blood Urea Nitrogen 24 H Creatinine 0.75 Est Glomerular > 60 Filtrat Rate mL/min Glucose Level 115 # Calcium Level 8.8 Total Bilirubin 0.5 Direct Bilirubin 0.00 Indirect Bilirubin 0.5 Aspartate Amino 29 Transf (AST/SGOT) Alanine 40 Aminotransferase (AL T/SGPT) Alkaline Phosphatase 57 Total Protein 5.8 L Albumin 3.3 Globulin 2.50 Albumin/Globulin 1.32 Ratio Test 09/08/18 12:44 Bedside Glucose 168 Medications Medication Current Medications IV Flush (NS 3 ml) 3 ml PER PROTOCOL IV ; Start 09/04/18 at 21:00 Ondansetron HCl (Zofran Inj) 4 mg Q6H PRN IV NAUSEA/VOMITING; Start 09/04/18 at 21:00 Acetaminophen (Tylenol Tab) 650 mg Q6H PRN PO .PAIN 1-3 OR TEMP; Start 09/04/18 at 21:00 Bisacodyl (Dulcolax) 5 mg DAILY PRN PO .CONSTIPATION Last administered on 09/08/18at 11:29; Admin Dose 5 MG; Start 09/04/18 at 21:00 Diagnostic Test (Pha) (Accu-Chek) 1 ea 02 XX ; Start 09/06/18 at 02:00 Miscellaneous Information 1 ea NOTE XX ; Start 09/05/18 at 06:30 Glucose (Glutose) 15 gm Q15M PRN PO DECREASED GLUCOSE; Start 09/05/18 at 06:30 Glucose (Glutose) 22.5 gm Q15M PRN PO DECREASED GLUCOSE; Start 09/05/18 at 06:30 Dextrose (D50w Syringe) 25 ml Q15M PRN IV DECREASED GLUCOSE; Start 09/05/18 at 06:30 Dextrose (D50w Syringe) 50 ml Q15M PRN IV DECREASED GLUCOSE; Start 09/05/18 at 06:30 Glucagon (Glucagen) 1 mg Q15M PRN IM DECREASED GLUCOSE; Start 09/05/18 at 06:30 Glucose (Glutose) 15 gm Q15M PRN BUCCAL DECREASED GLUCOSE; Start 09/05/18 at 06:30 Vitamin B Complex/ Vitamin C (Berocca) 1 cap DAILY PO Last administered on 09/08/18at 08:22; Admin Dose 1 CAP; Start 09/05/18 at 09:00 Lorazepam (Ativan) 0.5 mg PRIOR TO MRI PRN IV prior to mri; Start 09/05/18 at 07:00 Insulin Aspart (Novolog Insulin Pen) NOVOLOG *MILD* ALGORITHM WITH MEALS BEDTIME SC Last administered on 09/08/18 12:47; Admin Dose 1 UNIT; Start 09/05/18 at 17:55 Gabapentin (Neurontin) 300 mg TID PO Last administered on 09/08/18 12:53; Admin Dose 300 MG; Start 09/05/18 at 13:00 Lisinopril (Zestril) 10 mg DAILY PO Last administered on 09/08/18 08:22; Admin Dose 10 MG; Start 09/07/18 at 09:00 Atorvastatin Calcium (Lipitor) 10 mg HS PO Last administered on 09/07/18 20:49; Admin Dose 10 MG; Start 09/06/18 at 21:00 Insulin Glargine (Lantus) 24 units DAILY@0800 SC Last administered on 09/08/18 08:25; Admin Dose 24 UNITS; Start 09/07/18 at 08:00 Insulin Aspart (Novolog Insulin Pen) 8 unit WITH MEALS SC Last administered on 09/08/18 12:48; Admin Dose 8 UNIT; Start 09/06/18 at 17:55 Magnesium Hydroxide (Milk Of Mag) 30 ml DAILY PRN PO CONSTIPATION Last administered on 09/08/18 11:29; Admin Dose 30 ML; Start 09/07/18 at 16:00 Docusate Sodium (Colace) 100 mg BID PO Last administered on 09/08/18 08:21; Admin Dose 100 MG; Start 09/07/18 at 21:00 Morphine Sulfate (morphine) 1 mg Q4H PRN IV SEVERE PAIN LEVEL 7-10; Start 09/07/18 at 17:00 Celecoxib (Celebrex) 100 mg DAILY PO Last administered on 09/08/18 08:21; Admin Dose 100 MG; Start 09/08/18 at 09:00 Tramadol HCl (Ultram) 50 mg Q6H PRN PO MODERATE PAIN LEVEL 4-6 Last administered on 09/07/18 17:55; Admin Dose 50 MG; Start 09/07/18 at 17:00 STEPH BENITEZ NP Sep 08, 2018 14:14
--- NOTE | 2018-09-08 15:40 | PN ---
Date/Time of Note Date/Time of Note DATE: 09/08/18 TIME: 15:37 Objective Vitals Vital Signs Date Temp Pulse Resp B/P (MAP) Pulse Ox O2 O2 Flow FiO2 Time Delivery Rate 09/08/18 97.1 68 19 119/66 97 14:23 (83) 09/07/18 Room Air 15:30 Intake and Output 09/07/18 09/07/18 09/08/18 1515:00 23:00 07:00 IntakeIntake Total 560 ml 720 ml 120 ml BalanceBalance 560 ml 720 ml 120 ml Results Result Diagram: 09/08/184 09/08/184 Medications Medications Current Medications IV Flush (NS 3 ml) 3 ml PER PROTOCOL IV ; Start 09/04/18 at 21:00 Ondansetron HCl (Zofran Inj) 4 mg Q6H PRN IV NAUSEA/VOMITING; Start 09/04/18 at 21:00 Acetaminophen (Tylenol Tab) 650 mg Q6H PRN PO .PAIN 1-3 OR TEMP; Start 09/04/18 at 21:00 Bisacodyl (Dulcolax) 5 mg DAILY PRN PO .CONSTIPATION Last administered on 09/08/18at 11:29; Admin Dose 5 MG; Start 09/04/18 at 21:00 Diagnostic Test (Pha) (Accu-Chek) 1 ea 02 XX ; Start 09/06/18 at 02:00 Miscellaneous Information 1 ea NOTE XX ; Start 09/05/18 at 06:30 Glucose (Glutose) 15 gm Q15M PRN PO DECREASED GLUCOSE; Start 09/05/18 at 06:30 Glucose (Glutose) 22.5 gm Q15M PRN PO DECREASED GLUCOSE; Start 09/05/18 at 06:30 Dextrose (D50w Syringe) 25 ml Q15M PRN IV DECREASED GLUCOSE; Start 09/05/18 at 06:30 Dextrose (D50w Syringe) 50 ml Q15M PRN IV DECREASED GLUCOSE; Start 09/05/18 at 06:30 Glucagon (Glucagen) 1 mg Q15M PRN IM DECREASED GLUCOSE; Start 09/05/18 at 06:30 Glucose (Glutose) 15 gm Q15M PRN BUCCAL DECREASED GLUCOSE; Start 09/05/18 at 06:30 Vitamin B Complex/ Vitamin C (Berocca) 1 cap DAILY PO Last administered on 09/08/18 08:22; Admin Dose 1 CAP; Start 09/05/18 at 09:00 Lorazepam (Ativan) 0.5 mg PRIOR TO MRI PRN IV prior to mri; Start 09/05/18 at 07:00 Insulin Aspart (Novolog Insulin Pen) NOVOLOG *MILD* ALGORITHM WITH MEALS BEDTIME SC Last administered on 09/08/18 12:47; Admin Dose 1 UNIT; Start 09/05/18 at 17:55 Gabapentin (Neurontin) 300 mg TID PO Last administered on 09/08/18 12:53; Admin Dose 300 MG; Start 09/05/18 at 13:00 Lisinopril (Zestril) 10 mg DAILY PO Last administered on 09/08/18 08:22; Admin Dose 10 MG; Start 09/07/18 at 09:00 Atorvastatin Calcium (Lipitor) 10 mg HS PO Last administered on 09/07/18 20:49; Admin Dose 10 MG; Start 09/06/18 at 21:00 Insulin Glargine (Lantus) 24 units DAILY@0800 SC Last administered on 09/08/18 08:25; Admin Dose 24 UNITS; Start 09/07/18 at 08:00 Insulin Aspart (Novolog Insulin Pen) 8 unit WITH MEALS SC Last administered on 09/08/18 12:48; Admin Dose 8 UNIT; Start 09/06/18 at 17:55 Magnesium Hydroxide (Milk Of Mag) 30 ml DAILY PRN PO CONSTIPATION Last administered on 09/08/18 11:29; Admin Dose 30 ML; Start 09/07/18 at 16:00 Docusate Sodium (Colace) 100 mg BID PO Last administered on 09/08/18 08:21; Admin Dose 100 MG; Start 09/07/18 at 21:00 Morphine Sulfate (morphine) 1 mg Q4H PRN IV SEVERE PAIN LEVEL 7-10; Start 09/07/18 at 17:00 Celecoxib (Celebrex) 100 mg DAILY PO Last administered on 09/08/18 08:21; Admin Dose 100 MG; Start 09/08/18 at 09:00 Tramadol HCl (Ultram) 50 mg Q6H PRN PO MODERATE PAIN LEVEL 4-6 Last administered on 09/07/18 17:55; Admin Dose 50 MG; Start 09/07/18 at 17:00 VTE Prophylaxis Risk score (from Ns)>0 risk: 1 SCD applied (from [facility]): Yes Lines/Catheters IV Catheter Type: Martinez in Place: No Assessment/Plan Hospital Course Subjective Patient states her left side continues to improve and it is slightly better than yesterday Objective Physical exam General: Patient is laying in bed and answers questions appropriately Mentation: Patient is alert and oriented 4, Head: Normocephalic atraumatic Eyes: EOMI, pupils reactive to light Neck: Supple, nontender, midline Respiratory: Clear to auscultation bilaterally Cardiovascular: regular rate, no obvious murmurs Gastrointestinal: non-tender to palpation, bowel sounds heard. Neurological: Moves all extremities spontaneously, however left upper and lower extremity weaker than the right Skin: No new skin lesions ASSESSMENT AND PLAN:57 yo F w/obesity,dm2,htn admitted w/lower backpain with progressive left-sided weakness and numbness.. 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 -F/u WNV serologies -Continue with PT/OT leukocytosis-resolved -Likely secondary to lumbar puncture, resolved, monitor, Chronic degenerative L5-S1 spondylosis -Dr. Gaspar () reviewed MRI findings, and unlikely cause of her presenting symptoms. This is more like a chronic issue and this would need outpatient follow-up if she develops further neurovascular compromise.. -Pain control/PT/Rehab Poorly controlled diabetes -cont. basal/bolus Essential hypertension -Stable. -cont.lisinopril Dyslipidemia -on statin appropriately dosed Diabetic neuropathy -On gabapentin DVT prophylaxis: SCDs Disposition -Discussed with patient possible acute rehab, will attempt to get authorization ELIZABETH HARRINGTON Sep 08, 2018 15:40
[2018-09-08] MEDS ORDERED: SOD CHLORIDE 0.9% 1,000 ML IV ONE (20:30)
[2018-09-08] MEDS: ATORVASTATIN 10 MG TAB PO SCH (20:33)
[2018-09-08] MEDS: SOD CHLORIDE 0.9% 1,000 ML IV SCH (22:49)
[2018-09-09] VITALS (16 sets, daily range): BP systolic 84–104; BP diastolic 49–62; PULSE 56–81; RESP 16–20
[2018-09-09] MEDS: ACCU-CHEK XX SCH (02:00)
[2018-09-09] MEDS: SOD CHLORIDE 0.9% 1,000 ML IV SCH ×4 (04:01→22:45)
[2018-09-09] MEDS: INSULIN ASPART [NOVOLOG] 3 ML PEN SC SCH ×7 (07:49→20:37)
[2018-09-09] MEDS: INSULIN GLARGINE [LANTus] (100 UNITS/ML) SYG SC SCH (07:49)
[2018-09-09] MEDS: LISINOPRIL 10 MG TAB PO SCH (09:00)
[2018-09-09] MEDS: DOCUSATE SODIUM 100 MG CAP PO SCH ×2 (09:11→20:32)
[2018-09-09] MEDS: CELECOXIB 100 MG CAP PO SCH (09:11)
[2018-09-09] MEDS: GABAPENTIN 300 MG CAP PO SCH ×3 (09:13→20:32)
[2018-09-09] MEDS: VITAMIN B COMPLEX/VIT C CAP PO SCH (11:18)
[2018-09-09] MEDS: ENOXAPARIN 40 MG/0.4 ML SYG SC SCH (11:26)
--- NOTE | 2018-09-09 13:01 | PN ---
Date/Time of Note Date/Time of Note DATE: 09/09/18 TIME: 12:58 Objective Vitals Vital Signs Date Temp Pulse Resp B/P (MAP) Pulse Ox O2 O2 Flow FiO2 Time Delivery Rate 09/09/18 97.5 56 16 102/59 94 11:25 (73) 09/09/18 Room Air 05:25 Intake and Output 09/08/18 09/08/18 09/09/18 1515:00 23:00 07:00 IntakeIntake Total 620 ml 1820 ml 1605 ml OutputOutput Total 700 ml 900 ml BalanceBalance 620 ml 1120 ml 705 ml Results Result Diagram: 09/09/18 0507 09/09/18 0507 Medications Medications Current Medications IV Flush (NS 3 ml) 3 ml PER PROTOCOL IV ; Start 09/04/18 at 21:00 Ondansetron HCl (Zofran Inj) 4 mg Q6H PRN IV NAUSEA/VOMITING; Start 09/04/18 at 21:00 Acetaminophen (Tylenol Tab) 650 mg Q6H PRN PO .PAIN 1-3 OR TEMP; Start 09/04/18 at 21:00 Bisacodyl (Dulcolax) 5 mg DAILY PRN PO .CONSTIPATION Last administered on 09/08/18at 11:29; Admin Dose 5 MG; Start 09/04/18 at 21:00 Diagnostic Test (Pha) (Accu-Chek) 1 ea 02 XX ; Start 09/06/18 at 02:00 Miscellaneous Information 1 ea NOTE XX ; Start 09/05/18 at 06:30 Glucose (Glutose) 15 gm Q15M PRN PO DECREASED GLUCOSE; Start 09/05/18 at 06:30 Glucose (Glutose) 22.5 gm Q15M PRN PO DECREASED GLUCOSE; Start 09/05/18 at 06:30 Dextrose (D50w Syringe) 25 ml Q15M PRN IV DECREASED GLUCOSE; Start 09/05/18 at 06:30 Dextrose (D50w Syringe) 50 ml Q15M PRN IV DECREASED GLUCOSE; Start 09/05/18 at 06:30 Glucagon (Glucagen) 1 mg Q15M PRN IM DECREASED GLUCOSE; Start 09/05/18 at 06:30 Glucose (Glutose) 15 gm Q15M PRN BUCCAL DECREASED GLUCOSE; Start 09/05/18 at 06:30 Vitamin B Complex/ Vitamin C (Berocca) 1 cap DAILY PO Last administered on 09/09/18 11:18; Admin Dose 1 CAP; Start 09/05/18 at 09:00 Lorazepam (Ativan) 0.5 mg PRIOR TO MRI PRN IV prior to mri; Start 09/05/18 at 07:00 Insulin Aspart (Novolog Insulin Pen) NOVOLOG *MILD* ALGORITHM WITH MEALS BEDTIME SC Last administered on 09/09/18 11:26; Admin Dose 1 UNIT; Start 09/05/18 at 17:55 Gabapentin (Neurontin) 300 mg TID PO Last administered on 09/09/18 09:13; Admin Dose 300 MG; Start 09/05/18 at 13:00 Lisinopril (Zestril) 10 mg DAILY PO Last administered on 09/08/18 08:22; Admin Dose 10 MG; Start 09/07/18 at 09:00 Atorvastatin Calcium (Lipitor) 10 mg HS PO Last administered on 09/08/18 20:33; Admin Dose 10 MG; Start 09/06/18 at 21:00 Insulin Glargine (Lantus) 24 units DAILY@0800 SC Last administered on 09/09/18 07:49; Admin Dose 24 UNITS; Start 09/07/18 at 08:00 Insulin Aspart (Novolog Insulin Pen) 8 unit WITH MEALS SC Last administered on 09/09/18 11:26; Admin Dose 8 UNIT; Start 09/06/18 at 17:55 Magnesium Hydroxide (Milk Of Mag) 30 ml DAILY PRN PO CONSTIPATION Last administered on 09/08/18 11:29; Admin Dose 30 ML; Start 09/07/18 at 16:00 Docusate Sodium (Colace) 100 mg BID PO Last administered on 09/09/18 09:11; Admin Dose 100 MG; Start 09/07/18 at 21:00 Morphine Sulfate (morphine) 1 mg Q4H PRN IV SEVERE PAIN LEVEL 7-10; Start 09/07/18 at 17:00 Tramadol HCl (Ultram) 50 mg Q6H PRN PO MODERATE PAIN LEVEL 4-6 Last administered on 09/07/18 17:55; Admin Dose 50 MG; Start 09/07/18 at 17:00 Sodium Chloride 1,000 ml @ 125 mls/hr Q8H IV Last administered on 09/09/18at 04:01; Admin Dose 125 MLS/HR; Start 09/08/18 at 22:45; Stop 09/09/18 at 23:00 Enoxaparin Sodium (Lovenox) 40 mg DAILY SC Last administered on 09/09/18at 11:26; Admin Dose 40 MG; Start 09/09/18 at 10:30 VTE Prophylaxis Risk score (from [facility])>0 risk: 3 SCD applied (from [facility]): Yes Lines/Catheters IV Catheter Type: Martinez in Place: No Assessment/Plan Hospital Course Subjective Patient states her left side continues to improve and it is slightly better than yesterday, however upgraded to telemetry due to mildly low blood pressures,, patient is completely alert and oriented with no symptoms Objective Physical exam General: Patient is laying in bed and answers questions appropriately Mentation: Patient is alert and oriented 4, Head: Normocephalic atraumatic Eyes: EOMI, pupils reactive to light Neck: Supple, nontender, midline Respiratory: Clear to auscultation bilaterally Cardiovascular: regular rate, no obvious murmurs Gastrointestinal: non-tender to palpation, bowel sounds heard. Neurological: Moves all extremities spontaneously, however left upper and lower extremity weaker than the right Skin: No new skin lesions ASSESSMENT AND PLAN:57 yo F w/obesity,dm2,htn admitted w/lower backpain with progressive left-sided weakness and numbness.. 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 -F/u WNV serologies -Continue with PT/OT leukocytosis-resolved -Likely secondary to lumbar puncture, resolved, monitor, Hypotension -Appears patient has been mildly hypotensive this entire stay -Asymptomatic -Continue IV fluids for now -Patient's blood pressure was always low normal, this may be near her baseline may also be slightly volume depleted, will monitor closely. Chronic degenerative L5-S1 spondylosis -Dr. Gaspar () reviewed MRI findings, and unlikely cause of her presenting symptoms. This is more like a chronic issue and this would need outpatient follow-up if she develops further neurovascular compromise.. -Pain control/PT/Rehab Poorly controlled diabetes -cont. basal/bolus Essential hypertension -Stable. -cont.lisinopril Dyslipidemia -on statin appropriately dosed Diabetic neuropathy -On gabapentin DVT prophylaxis: SCDs Disposition -Discussed with patient possible acute rehab, will attempt to get authorization ELIZABETH HARRINGTON Sep 09, 2018 13:01
--- NOTE | 2018-09-09 13:02 | CONS ---
Assessment/Plan Assessment/Plan Assessment/Plan (Recall) 57 F c/ Hx of DM2, and HLD...who presents for evaluation of slowly progressive left sided weakness and sensory loss, for which neurology is consulted.. 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 MRI C and T spine is reassuringly negative fo myelopathy. MRI brain is without evidence of a focal brain process... CSF confirms a mild inflammatory process P: Await West Nile serologies PT/OT as able EMG/NCS, which may be done as an outpatient Other management and supportive care per primary Consultation Date/Type/Reason Admit Date/Time Sep 04, 2018 at 20:33 Type of Consult Neurology Reason for Consultation b/l hand and left foot weakness and numbness. Requesting Provider: OLIVIA STACK Date/Time of Note DATE: 09/09/18 TIME: 13:01 Exam/Review of Systems Exam Vitals Vital Signs Date Temp Pulse Resp B/P (MAP) Pulse Ox O2 O2 Flow FiO2 Time Delivery Rate 09/09/18 97.5 56 16 102/59 94 11:25 (73) 09/09/18 Room Air 05:25 Intake and Output 09/08/18 09/08/18 09/09/18 1515:00 23:00 07:00 IntakeIntake Total 620 ml 1820 ml 1605 ml OutputOutput Total 700 ml 900 ml BalanceBalance 620 ml 1120 ml 705 ml Results Result Diagram: 09/09/18 0507 09/09/18 0507 Results 24hrs Laboratory Tests Test 09/08/18 18:06 09/08/18 20:31 09/09/18 05:07 09/09/18 07:42 Bedside Glucose 105 161 153 White Blood Count 7.8 # Red Blood Count 4.76 Hemoglobin 14.0 Hematocrit 41.9 Mean Corpuscular 88.0 Volume Mean Corpuscular 29.4 Hemoglobin Mean Corpuscular 33.4 Hemoglobin Concent Red Cell 12.6 Distribution Width Platelet Count 298 Mean Platelet Volume 10.9 H Immature 0.400 Granulocytes % Neutrophils % 60.9 Lymphocytes % 29.3 Monocytes % 5.0 Eosinophils % 4.1 Basophils % 0.3 Nucleated Red Blood 0.0 Cells % Immature 0.030 Granulocytes # Neutrophils # 4.7 Lymphocytes # 2.3 Monocytes # 0.4 Eosinophils # 0.3 Basophils # 0.0 Nucleated Red Blood 0.0 Cells # Sodium Level 140 Potassium Level 4.4 Chloride Level 110 Carbon Dioxide Level 22 Anion Gap 8 Blood Urea Nitrogen 17 Creatinine 0.58 Est Glomerular > 60 Filtrat Rate mL/min Glucose Level 163 Calcium Level 8.4 Total Bilirubin 0.7 Direct Bilirubin 0.00 Indirect Bilirubin 0.7 Aspartate Amino 28 Transf (AST/SGOT) Alanine 44 Aminotransferase (AL T/SGPT) Alkaline Phosphatase 62 Total Protein 6.1 Albumin 3.4 Globulin 2.70 Albumin/Globulin 1.25 Ratio Test 09/09/18 11:17 Bedside Glucose 170 Medications Medication Current Medications IV Flush (NS 3 ml) 3 ml PER PROTOCOL IV ; Start 09/04/18 at 21:00 Ondansetron HCl (Zofran Inj) 4 mg Q6H PRN IV NAUSEA/VOMITING; Start 09/04/18 at 21:00 Acetaminophen (Tylenol Tab) 650 mg Q6H PRN PO .PAIN 1-3 OR TEMP; Start 09/04/18 at 21:00 Bisacodyl (Dulcolax) 5 mg DAILY PRN PO .CONSTIPATION Last administered on 09/08/18at 11:29; Admin Dose 5 MG; Start 09/04/18 at 21:00 Diagnostic Test (Pha) (Accu-Chek) 1 ea 02 XX ; Start 09/06/18 at 02:00 Miscellaneous Information 1 ea NOTE XX ; Start 09/05/18 at 06:30 Glucose (Glutose) 15 gm Q15M PRN PO DECREASED GLUCOSE; Start 09/05/18 at 06:30 Glucose (Glutose) 22.5 gm Q15M PRN PO DECREASED GLUCOSE; Start 09/05/18 at 06:30 Dextrose (D50w Syringe) 25 ml Q15M PRN IV DECREASED GLUCOSE; Start 09/05/18 at 06:30 Dextrose (D50w Syringe) 50 ml Q15M PRN IV DECREASED GLUCOSE; Start 09/05/18 at 06:30 Glucagon (Glucagen) 1 mg Q15M PRN IM DECREASED GLUCOSE; Start 09/05/18 at 06:30 Glucose (Glutose) 15 gm Q15M PRN BUCCAL DECREASED GLUCOSE; Start 09/05/18 at 06:30 Vitamin B Complex/ Vitamin C (Berocca) 1 cap DAILY PO Last administered on 09/09/18 11:18; Admin Dose 1 CAP; Start 09/05/18 at 09:00 Lorazepam (Ativan) 0.5 mg PRIOR TO MRI PRN IV prior to mri; Start 09/05/18 at 07:00 Insulin Aspart (Novolog Insulin Pen) NOVOLOG *MILD* ALGORITHM WITH MEALS BEDTIME SC Last administered on 09/09/18 11:26; Admin Dose 1 UNIT; Start 09/05/18 at 17:55 Gabapentin (Neurontin) 300 mg TID PO Last administered on 09/09/18 09:13; Admin Dose 300 MG; Start 09/05/18 at 13:00 Lisinopril (Zestril) 10 mg DAILY PO Last administered on 09/08/18 08:22; Admin Dose 10 MG; Start 09/07/18 at 09:00 Atorvastatin Calcium (Lipitor) 10 mg HS PO Last administered on 09/08/18 20:33; Admin Dose 10 MG; Start 09/06/18 at 21:00 Insulin Glargine (Lantus) 24 units DAILY@0800 SC Last administered on 09/09/18 07:49; Admin Dose 24 UNITS; Start 09/07/18 at 08:00 Insulin Aspart (Novolog Insulin Pen) 8 unit WITH MEALS SC Last administered on 09/09/18 11:26; Admin Dose 8 UNIT; Start 09/06/18 at 17:55 Magnesium Hydroxide (Milk Of Mag) 30 ml DAILY PRN PO CONSTIPATION Last administered on 09/08/18 11:29; Admin Dose 30 ML; Start 09/07/18 at 16:00 Docusate Sodium (Colace) 100 mg BID PO Last administered on 09/09/18 09:11; Admin Dose 100 MG; Start 09/07/18 at 21:00 Morphine Sulfate (morphine) 1 mg Q4H PRN IV SEVERE PAIN LEVEL 7-10; Start 09/07/18 at 17:00 Tramadol HCl (Ultram) 50 mg Q6H PRN PO MODERATE PAIN LEVEL 4-6 Last administered on 09/07/18 17:55; Admin Dose 50 MG; Start 09/07/18 at 17:00 Sodium Chloride 1,000 ml @ 125 mls/hr Q8H IV Last administered on 6/22/19at 04:01; Admin Dose 125 MLS/HR; Start 09/08/18 at 22:45; Stop 09/09/18 at 23:00 Enoxaparin Sodium (Lovenox) 40 mg DAILY SC Last administered on 09/09/18at 11:26; Admin Dose 40 MG; Start 09/09/18 at 10:30 DALJIT SAXENA Sep 09, 2018 13:02
[2018-09-09] MEDS: ATORVASTATIN 10 MG TAB PO SCH (20:32)
[2018-09-10] VITALS (16 sets, daily range): BP systolic 82–114; BP diastolic 49–74; PULSE 54–91; RESP 16–18
[2018-09-10] MEDS: ACCU-CHEK XX SCH (02:22)
[2018-09-10] MEDS: traMADol 50 MG TAB PO PRN (02:26)
[2018-09-10] MEDS: INSULIN ASPART [NOVOLOG] 3 ML PEN SC SCH ×7 (07:40→21:01)
[2018-09-10] MEDS: INSULIN GLARGINE [LANTus] (100 UNITS/ML) SYG SC SCH (07:58)
[2018-09-10] MEDS: GABAPENTIN 300 MG CAP PO SCH ×3 (08:31→20:40)
[2018-09-10] MEDS: VITAMIN B COMPLEX/VIT C CAP PO SCH (08:31)
[2018-09-10] MEDS: DOCUSATE SODIUM 100 MG CAP PO SCH ×2 (08:31→20:40)
[2018-09-10] MEDS: LISINOPRIL 10 MG TAB PO SCH (08:32)
[2018-09-10] MEDS: MAGNESIUM HYDROXIDE 30ML CUP PO PRN (08:47)
[2018-09-10] MEDS: ENOXAPARIN 40 MG/0.4 ML SYG SC SCH (09:07)
--- NOTE | 2018-09-10 09:48 | PN ---
Date/Time of Note Date/Time of Note DATE: 09/10/18 TIME: 09:46 Objective Vitals Vital Signs Date Temp Pulse Resp B/P (MAP) Pulse Ox O2 O2 Flow FiO2 Time Delivery Rate 09/10/18 54 08:33 09/10/18 97.3 17 89/59 (69) 94 07:31 09/09/18 Room Air 05:25 Intake and Output 09/09/18 09/09/18 09/10/18 1515:00 23:00 07:00 IntakeIntake Total 500 ml 1420 ml 1020 ml BalanceBalance 500 ml 1420 ml 1020 ml Results Result Diagram: 09/10/18 0456 09/10/18 0456 Medications Medications Current Medications IV Flush (NS 3 ml) 3 ml PER PROTOCOL IV ; Start 09/04/18 at 21:00 Ondansetron HCl (Zofran Inj) 4 mg Q6H PRN IV NAUSEA/VOMITING; Start 09/04/18 at 21:00 Acetaminophen (Tylenol Tab) 650 mg Q6H PRN PO .PAIN 1-3 OR TEMP; Start 09/04/18 at 21:00 Bisacodyl (Dulcolax) 5 mg DAILY PRN PO .CONSTIPATION Last administered on 09/08/18at 11:29; Admin Dose 5 MG; Start 09/04/18 at 21:00 Diagnostic Test (Pha) (Accu-Chek) 1 ea 02 XX Last administered on 09/10/18at 02:22; Admin Dose 1 EA; Start 09/06/18 at 02:00 Miscellaneous Information 1 ea NOTE XX ; Start 09/05/18 at 06:30 Glucose (Glutose) 15 gm Q15M PRN PO DECREASED GLUCOSE; Start 09/05/18 at 06:30 Glucose (Glutose) 22.5 gm Q15M PRN PO DECREASED GLUCOSE; Start 09/05/18 at 06:30 Dextrose (D50w Syringe) 25 ml Q15M PRN IV DECREASED GLUCOSE; Start 09/05/18 at 06:30 Dextrose (D50w Syringe) 50 ml Q15M PRN IV DECREASED GLUCOSE; Start 09/05/18 at 06:30 Glucagon (Glucagen) 1 mg Q15M PRN IM DECREASED GLUCOSE; Start 09/05/18 at 06:30 Glucose (Glutose) 15 gm Q15M PRN BUCCAL DECREASED GLUCOSE; Start 09/05/18 at 06:30 Vitamin B Complex/ Vitamin C (Berocca) 1 cap DAILY PO Last administered on 09/10/18 08:31; Admin Dose 1 CAP; Start 09/05/18 at 09:00 Lorazepam (Ativan) 0.5 mg PRIOR TO MRI PRN IV prior to mri; Start 09/05/18 at 07:00 Insulin Aspart (Novolog Insulin Pen) NOVOLOG *MILD* ALGORITHM WITH MEALS BEDTIME SC Last administered on 09/09/18 20:37; Admin Dose 1 UNIT; Start 09/05/18 at 17:55 Gabapentin (Neurontin) 300 mg TID PO Last administered on 09/10/18 08:31; Admin Dose 300 MG; Start 09/05/18 at 13:00 Lisinopril (Zestril) 10 mg DAILY PO Last administered on 09/08/18 08:22; Admin Dose 10 MG; Start 09/07/18 at 09:00 Atorvastatin Calcium (Lipitor) 10 mg HS PO Last administered on 09/09/18 20:32; Admin Dose 10 MG; Start 09/06/18 at 21:00 Insulin Glargine (Lantus) 24 units DAILY@0800 SC Last administered on 09/10/18 07:58; Admin Dose 24 UNITS; Start 09/07/18 at 08:00 Insulin Aspart (Novolog Insulin Pen) 8 unit WITH MEALS SC Last administered on 09/09/18 11:26; Admin Dose 8 UNIT; Start 09/06/18 at 17:55 Magnesium Hydroxide (Milk Of Mag) 30 ml DAILY PRN PO CONSTIPATION Last administered on 09/10/18 08:47; Admin Dose 30 ML; Start 09/07/18 at 16:00 Docusate Sodium (Colace) 100 mg BID PO Last administered on 09/10/18 08:31; Admin Dose 100 MG; Start 09/07/18 at 21:00 Morphine Sulfate (morphine) 1 mg Q4H PRN IV SEVERE PAIN LEVEL 7-10; Start 09/07/18 at 17:00 Tramadol HCl (Ultram) 50 mg Q6H PRN PO MODERATE PAIN LEVEL 4-6 Last administered on 09/10/18 02:26; Admin Dose 50 MG; Start 09/07/18 at 17:00 Enoxaparin Sodium (Lovenox) 40 mg DAILY SC Last administered on 09/10/18at 09:07; Admin Dose 40 MG; Start 09/09/18 at 10:30 VTE Prophylaxis Risk score (from Ns)>0 risk: 5 SCD applied (from Ns): Yes Lines/Catheters IV Catheter Type: Martinez in Place: No Assessment/Plan Hospital Course Subjective Patient states her left side continues to improve and it is slightly better than yesterday, patient's blood pressure however persistently low although patient is not symptomatic at all. Patient now having chills and some dysuria. Objective Physical exam General: Patient is laying in bed and answers questions appropriately Mentation: Patient is alert and oriented 4, Head: Normocephalic atraumatic Eyes: EOMI, pupils reactive to light Neck: Supple, nontender, midline Respiratory: Clear to auscultation bilaterally Cardiovascular: regular rate, no obvious murmurs Gastrointestinal: non-tender to palpation, bowel sounds heard. Neurological: Moves all extremities spontaneously, however left upper and lower extremity weaker than the right Skin: No new skin lesions ASSESSMENT AND PLAN:57 yo F w/obesity,dm2,htn admitted w/lower backpain with progressive left-sided weakness and numbness.. Hypotension -Questionable sepsis, no fever or white count however patient now having chills and dysuria, will order lactic acid, blood cultures, UA, chest xray -We will start empiric antibiotics -Normal saline bolus and maintenance -Titrate off antibiotics if no source of infection is found -Of note patient having mildly low blood pressure throughout this admission however is getting mildly worse. 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 -F/u WNV serologies -Continue with PT/OT leukocytosis-resolved -Likely secondary to lumbar puncture, resolved, monitor, Chronic degenerative L5-S1 spondylosis -Dr. Gaspar () reviewed MRI findings, and unlikely cause of her presenting symptoms. This is more like a chronic issue and this would need outpatient follow-up if she develops further neurovascular compromise.. -Pain control/PT/Rehab Poorly controlled diabetes -cont. basal/bolus Essential hypertension -Stable. -cont.lisinopril Dyslipidemia -on statin appropriately dosed Diabetic neuropathy -On gabapentin DVT prophylaxis: SCDs Disposition -Follow-up with urinary analysis, lactic acid, continue antibiotics and IV fluids for hypotension. ELIZABETH HARRINGTON Sep 10, 2018 09:48
[2018-09-10] MEDS ORDERED: SOD CHLORIDE 0.9% 1,000 ML IV ONE (10:00)
[2018-09-10] MEDS: SOD CHLORIDE 0.9% 1,000 ML IV SCH ×2 (10:09→23:20)
[2018-09-10] MEDS: CEFEPIME 1GM/50 ML (PMX) 50 ML IVPB SCH ×2 (10:11→20:39)
[2018-09-10] MEDS: POLYETHYLENE GLYCOL 17 GM PACKET PO PRN (15:24)
[2018-09-10] MEDS: ATORVASTATIN 10 MG TAB PO SCH (20:40)
[2018-09-10] MEDS ORDERED: FAMO20TA18 PO (22:42)
[2018-09-10] MEDS: FAMOTIDINE 20 MG TAB PO SCH (23:05)
[2018-09-11] VITALS (12 sets, daily range): BP systolic 80–105; BP diastolic 51–58; PULSE 54–78; RESP 16–18
[2018-09-11] MEDS: ACCU-CHEK XX SCH (02:02)
[2018-09-11] MEDS: SOD CHLORIDE 0.9% 1,000 ML IV SCH ×3 (04:20→19:31)
[2018-09-11] MEDS: INSULIN ASPART [NOVOLOG] 3 ML PEN SC SCH ×7 (07:38→21:00)
[2018-09-11] MEDS: FAMOTIDINE 20 MG TAB PO SCH (08:18)
[2018-09-11] MEDS: CEFEPIME 1GM/50 ML (PMX) 50 ML IVPB SCH ×2 (08:18→21:25)
[2018-09-11] MEDS: DOCUSATE SODIUM 100 MG CAP PO SCH ×2 (08:19→21:26)
[2018-09-11] MEDS: GABAPENTIN 300 MG CAP PO SCH ×2 (08:19→12:11)
[2018-09-11] MEDS: VITAMIN B COMPLEX/VIT C CAP PO SCH (08:19)
[2018-09-11] MEDS: LISINOPRIL 10 MG TAB PO SCH (08:19)
[2018-09-11] MEDS: ENOXAPARIN 40 MG/0.4 ML SYG SC SCH (08:31)
[2018-09-11] MEDS: INSULIN GLARGINE [LANTus] (100 UNITS/ML) SYG SC SCH (08:31)
--- NOTE | 2018-09-11 10:53 | CONS ---
Assessment/Plan Assessment/Plan Assessment/Plan (Recall) 57 F c/ Hx of DM2, and HLD...who presents for evaluation of slowly progressive left sided weakness and sensory loss, for which neurology is consulted.. 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 MRI C and T spine is reassuringly negative fo myelopathy. MRI brain is without evidence of a focal brain process... CSF confirms a mild inflammatory process West Nile neg P: PT/OT as able EMG/NCS, which may be done as an outpatient Other management and supportive care per primary Consultation Date/Type/Reason Admit Date/Time Sep 04, 2018 at 20:33 Type of Consult Neurology Reason for Consultation b/l hand and left foot weakness and numbness. Requesting Provider: OLIVIA STACK Date/Time of Note DATE: 09/11/18 TIME: 10:52 24 HR Interval Summary Free Text/Dictation Continues acute care Exam/Review of Systems Exam Vitals Vital Signs Date Temp Pulse Resp B/P (MAP) Pulse Ox O2 O2 Flow FiO2 Time Delivery Rate 09/11/18 60 08:00 09/11/18 97.9 18 97/53 (68) 97 07:22 09/09/18 Room Air 05:25 Intake and Output 09/10/18 09/10/18 09/11/18 1515:00 23:00 07:00 IntakeIntake Total 1740 ml 600 ml 1345 ml BalanceBalance 1740 ml 600 ml 1345 ml Results Result Diagram: 09/11/18 0506 09/11/18 0506 Results 24hrs Laboratory Tests Test 09/10/18 11:43 09/10/18 17:21 09/10/18 20:38 09/11/18 01:23 Bedside Glucose 137 235 H 220 139 Test 09/11/18 05:06 09/11/18 07:37 White Blood Count 10.7 Red Blood Count 4.76 Hemoglobin 13.7 Hematocrit 41.5 Mean Corpuscular 87.2 Volume Mean Corpuscular 28.8 L Hemoglobin Mean Corpuscular 33.0 Hemoglobin Concent Red Cell 12.5 Distribution Width Platelet Count 298 Mean Platelet Volume 10.6 H Immature 0.700 H Granulocytes % Neutrophils % 57.2 Lymphocytes % 34.2 Monocytes % 5.4 Eosinophils % 2.2 Basophils % 0.3 Nucleated Red Blood 0.0 Cells % Immature 0.070 H Granulocytes # Neutrophils # 6.1 Lymphocytes # 3.7 H Monocytes # 0.6 Eosinophils # 0.2 Basophils # 0.0 Nucleated Red Blood 0.0 Cells # Sodium Level 142 Potassium Level 4.0 Chloride Level 110 Carbon Dioxide Level 23 Anion Gap 9 Blood Urea Nitrogen 15 Creatinine 0.54 Est Glomerular > 60 Filtrat Rate mL/min Glucose Level 113 Calcium Level 8.7 Phosphorus Level 4.0 Magnesium Level 2.5 Bedside Glucose 109 Medications Medication Current Medications IV Flush (NS 3 ml) 3 ml PER PROTOCOL IV ; Start 09/04/18 at 21:00 Ondansetron HCl (Zofran Inj) 4 mg Q6H PRN IV NAUSEA/VOMITING; Start 09/04/18 at 21:00 Acetaminophen (Tylenol Tab) 650 mg Q6H PRN PO .PAIN 1-3 OR TEMP; Start 09/04/18 at 21:00 Bisacodyl (Dulcolax) 5 mg DAILY PRN PO .CONSTIPATION Last administered on 09/08/18at 11:29; Admin Dose 5 MG; Start 09/04/18 at 21:00 Diagnostic Test (Pha) (Accu-Chek) 1 ea 02 XX Last administered on 09/11/18at 02:02; Admin Dose 1 EA; Start 09/06/18 at 02:00 Miscellaneous Information 1 ea NOTE XX ; Start 09/05/18 at 06:30 Glucose (Glutose) 15 gm Q15M PRN PO DECREASED GLUCOSE; Start 09/05/18 at 06:30 Glucose (Glutose) 22.5 gm Q15M PRN PO DECREASED GLUCOSE; Start 09/05/18 at 06:30 Dextrose (D50w Syringe) 25 ml Q15M PRN IV DECREASED GLUCOSE; Start 09/05/18 at 06:30 Dextrose (D50w Syringe) 50 ml Q15M PRN IV DECREASED GLUCOSE; Start 09/05/18 at 06:30 Glucagon (Glucagen) 1 mg Q15M PRN IM DECREASED GLUCOSE; Start 09/05/18 at 06:30 Glucose (Glutose) 15 gm Q15M PRN BUCCAL DECREASED GLUCOSE; Start 09/05/18 at 06:30 Vitamin B Complex/ Vitamin C (Berocca) 1 cap DAILY PO Last administered on 09/11/18 08:19; Admin Dose 1 CAP; Start 09/05/18 at 09:00 Lorazepam (Ativan) 0.5 mg PRIOR TO MRI PRN IV prior to mri; Start 09/05/18 at 07:00 Insulin Aspart (Novolog Insulin Pen) NOVOLOG *MILD* ALGORITHM WITH MEALS BEDTIME SC Last administered on 09/10/18 21:01; Admin Dose 1 UNIT; Start 09/05/18 at 17:55 Gabapentin (Neurontin) 300 mg TID PO Last administered on 09/11/18 08:19; Admin Dose 300 MG; Start 09/05/18 at 13:00 Lisinopril (Zestril) 10 mg DAILY PO Last administered on 09/08/18 08:22; Admin Dose 10 MG; Start 09/07/18 at 09:00 Atorvastatin Calcium (Lipitor) 10 mg HS PO Last administered on 09/10/18 20:40; Admin Dose 10 MG; Start 09/06/18 at 21:00 Insulin Glargine (Lantus) 24 units DAILY@0800 SC Last administered on 09/11/18 08:31; Admin Dose 24 UNITS; Start 09/07/18 at 08:00 Insulin Aspart (Novolog Insulin Pen) 8 unit WITH MEALS SC Last administered on 09/11/18 07:53; Admin Dose 8 UNIT; Start 09/06/18 at 17:55 Magnesium Hydroxide (Milk Of Mag) 30 ml DAILY PRN PO CONSTIPATION Last administered on 09/10/18 08:47; Admin Dose 30 ML; Start 09/07/18 at 16:00 Docusate Sodium (Colace) 100 mg BID PO Last administered on 09/11/18 08:19; Admin Dose 100 MG; Start 09/07/18 at 21:00 Morphine Sulfate (morphine) 1 mg Q4H PRN IV SEVERE PAIN LEVEL 7-10; Start 09/07/18 at 17:00 Tramadol HCl (Ultram) 50 mg Q6H PRN PO MODERATE PAIN LEVEL 4-6 Last administered on 09/10/18 02:26; Admin Dose 50 MG; Start 09/07/18 at 17:00 Enoxaparin Sodium (Lovenox) 40 mg DAILY SC Last administered on 09/11/18 08:31; Admin Dose 40 MG; Start 09/09/18 at 10:30 Sodium Chloride 1,000 ml @ 75 mls/hr [id number] IV Last administered on 09/11/18at 04:20; Admin Dose 75 MLS/HR; Start 09/10/18 at 10:00 Cefepime HCl 50 ml @ 100 mls/hr Q12 IVPB Last administered on 09/11/18 08:18; Admin Dose 100 MLS/HR; Start 09/10/18 at 10:00 Polyethylene Glycol (Miralax) 17 gm DAILY PRN PO CONSTIPATION Last administered on 09/10/18at 15:24; Admin Dose 17 GM; Start 09/10/18 at 10:00 Famotidine (Pepcid) 20 mg DAILY PO Last administered on 09/11/18 08:18; Admin Dose 20 MG; Start 09/10/18 at 23:00 DALJIT SAXENA Sep 11, 2018 10:53
[2018-09-11] MEDS: traMADol 50 MG TAB PO PRN ×3 (12:11→22:17)
[2018-09-11] MEDS: MAGNESIUM HYDROXIDE 30ML CUP PO PRN (12:11)
[2018-09-11] MEDS: BISACODYL (EC) 5 MG TAB PO PRN (12:11)
--- NOTE | 2018-09-11 15:08 | PN ---
Date/Time of Note Date/Time of Note DATE: 09/11/18 TIME: 14:49 Assessment/Plan VTE Prophylaxis Risk score (from Nsg)>0 risk: 4 SCD applied (from Nsg): Yes Pharmacological prophylaxis: LMWH Lines/Catheters IV Catheter Type (from Nrsg): Peripheral IV Urinary Cath still in place: No Assessment/Plan Assessment/Plan 1. Hypotension - Per daughter, when patient started "getting sick" her BP was in the 90s - will continue on IVF and adjust medications that may be affecting BP - holding lisinopril at this time - empiric antibiotics started but if no infectious source noted, will d/c 2. 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 Recommending outpatient EMG/nerve studies - LP cultures noted - Brain MRI and spinal MRI negative for acute myelopathy or any focal brain process - s/p LP->CSF analysis shows elevated white count, protein and glucose pointing to words possible inflammatory process 3. leukocytosis-resolved - Likely secondary to lumbar puncture, resolved, monitor 4. Chronic degenerative L5-S1 spondylosis - Neurosurgery consultation appreciated and no need for surgical intervention at this time. Will need outpatient follow up if any worsening of symptoms - Pain control/PT/Rehab 5. Poorly controlled diabetes - A1c noted - will continue current insulin dose given good control of glucose - cont. basal/bolus 6. Essential hypertension - hold MURRAY given low BP 7. Dyslipidemia - continue statin 8. Diabetic neuropathy - will lower dose to see if possibly contributing to low BP 9. Disposition - Will continue monitoring BP given hypotension. CM on board for placement Result Diagram: 09/11/18 0506 09/11/18 0506 Results 24hrs Laboratory Tests Test 09/10/18 17:21 09/10/18 20:38 09/11/18 01:23 09/11/18 05:06 Bedside Glucose 235 H 220 139 White Blood Count 10.7 Red Blood Count 4.76 Hemoglobin 13.7 Hematocrit 41.5 Mean Corpuscular 87.2 Volume Mean Corpuscular 28.8 L Hemoglobin Mean Corpuscular 33.0 Hemoglobin Concent Red Cell 12.5 Distribution Width Platelet Count 298 Mean Platelet Volume 10.6 H Immature 0.700 H Granulocytes % Neutrophils % 57.2 Lymphocytes % 34.2 Monocytes % 5.4 Eosinophils % 2.2 Basophils % 0.3 Nucleated Red Blood 0.0 Cells % Immature 0.070 H Granulocytes # Neutrophils # 6.1 Lymphocytes # 3.7 H Monocytes # 0.6 Eosinophils # 0.2 Basophils # 0.0 Nucleated Red Blood 0.0 Cells # Sodium Level 142 Potassium Level 4.0 Chloride Level 110 Carbon Dioxide Level 23 Anion Gap 9 Blood Urea Nitrogen 15 Creatinine 0.54 Est Glomerular > 60 Filtrat Rate mL/min Glucose Level 113 Calcium Level 8.7 Phosphorus Level 4.0 Magnesium Level 2.5 Test 09/11/18 07:37 09/11/18 11:22 Bedside Glucose 109 114 Subjective 24 Hr Interval Summary Free Text/Dictation Patient still with frontal headache but denies any dizziness, nausea, or vomiting. Requesting to walk around with physical therapy. No acute overnight events. Exam/Review of Systems Exam Vitals Vital Signs Date Temp Pulse Resp B/P (MAP) Pulse Ox O2 O2 Flow FiO2 Time Delivery Rate 09/11/18 68 12:00 09/11/18 90/51 (64) 11:39 09/11/18 97.9 18 98 11:26 09/09/18 Room Air 05:25 Intake and Output 09/10/18 09/10/18 09/11/18 1515:00 23:00 07:00 IntakeIntake Total 1740 ml 600 ml 1345 ml BalanceBalance 1740 ml 600 ml 1345 ml Exam General: Patient is laying in bed and answers questions appropriately Neck: Supple Respiratory: Clear to auscultation bilaterally. no wheezing or rhonchi Cardiovascular: regular rate and rhythm, no obvious murmurs Gastrointestinal: soft, non-tender to palpation, nondistended, bowel sounds heard. Neurological: Moves all extremities spontaneously, 3/5 strength LUE and LLE, 5/5 RUE and RLE Skin: No new skin lesions Results Results 24hrs Laboratory Tests Test 09/10/18 17:21 09/10/18 20:38 09/11/18 01:23 09/11/18 05:06 Bedside Glucose 235 H 220 139 White Blood Count 10.7 Red Blood Count 4.76 Hemoglobin 13.7 Hematocrit 41.5 Mean Corpuscular 87.2 Volume Mean Corpuscular 28.8 L Hemoglobin Mean Corpuscular 33.0 Hemoglobin Concent Red Cell 12.5 Distribution Width Platelet Count 298 Mean Platelet Volume 10.6 H Immature 0.700 H Granulocytes % Neutrophils % 57.2 Lymphocytes % 34.2 Monocytes % 5.4 Eosinophils % 2.2 Basophils % 0.3 Nucleated Red Blood 0.0 Cells % Immature 0.070 H Granulocytes # Neutrophils # 6.1 Lymphocytes # 3.7 H Monocytes # 0.6 Eosinophils # 0.2 Basophils # 0.0 Nucleated Red Blood 0.0 Cells # Sodium Level 142 Potassium Level 4.0 Chloride Level 110 Carbon Dioxide Level 23 Anion Gap 9 Blood Urea Nitrogen 15 Creatinine 0.54 Est Glomerular > 60 Filtrat Rate mL/min Glucose Level 113 Calcium Level 8.7 Phosphorus Level 4.0 Magnesium Level 2.5 Test 09/11/18 07:37 09/11/18 11:22 Bedside Glucose 109 114 Medications Medication Current Medications IV Flush (NS 3 ml) 3 ml PER PROTOCOL IV ; Start 09/04/18 at 21:00 Ondansetron HCl (Zofran Inj) 4 mg Q6H PRN IV NAUSEA/VOMITING; Start 09/04/18 at 21:00 Acetaminophen (Tylenol Tab) 650 mg Q6H PRN PO .PAIN 1-3 OR TEMP; Start 09/04/18 at 21:00 Bisacodyl (Dulcolax) 5 mg DAILY PRN PO .CONSTIPATION Last administered on 09/11/18at 12:11; Admin Dose 5 MG; Start 09/04/18 at 21:00 Diagnostic Test (Pha) (Accu-Chek) 1 ea 02 XX Last administered on 09/11/18at 02:02; Admin Dose 1 EA; Start 09/06/18 at 02:00 Miscellaneous Information 1 ea NOTE XX ; Start 09/05/18 at 06:30 Glucose (Glutose) 15 gm Q15M PRN PO DECREASED GLUCOSE; Start 09/05/18 at 06:30 Glucose (Glutose) 22.5 gm Q15M PRN PO DECREASED GLUCOSE; Start 09/05/18 at 06:30 Dextrose (D50w Syringe) 25 ml Q15M PRN IV DECREASED GLUCOSE; Start 09/05/18 at 06:30 Dextrose (D50w Syringe) 50 ml Q15M PRN IV DECREASED GLUCOSE; Start 09/05/18 at 06:30 Glucagon (Glucagen) 1 mg Q15M PRN IM DECREASED GLUCOSE; Start 09/05/18 at 06:30 Glucose (Glutose) 15 gm Q15M PRN BUCCAL DECREASED GLUCOSE; Start 09/05/18 at 06:30 Vitamin B Complex/ Vitamin C (Berocca) 1 cap DAILY PO Last administered on 09/11/18 08:19; Admin Dose 1 CAP; Start 09/05/18 at 09:00 Lorazepam (Ativan) 0.5 mg PRIOR TO MRI PRN IV prior to mri; Start 09/05/18 at 07:00 Insulin Aspart (Novolog Insulin Pen) NOVOLOG *MILD* ALGORITHM WITH MEALS BEDTIME SC Last administered on 09/10/18 21:01; Admin Dose 1 UNIT; Start 09/05/18 at 17:55 Gabapentin (Neurontin) 300 mg TID PO Last administered on 09/11/18 12:11; Admin Dose 300 MG; Start 09/05/18 at 13:00 Lisinopril (Zestril) 10 mg DAILY PO Last administered on 09/08/18 08:22; Admin Dose 10 MG; Start 09/07/18 at 09:00 Atorvastatin Calcium (Lipitor) 10 mg HS PO Last administered on 09/10/18 20:40; Admin Dose 10 MG; Start 09/06/18 at 21:00 Insulin Glargine (Lantus) 24 units DAILY@0800 SC Last administered on 09/11/18 08:31; Admin Dose 24 UNITS; Start 09/07/18 at 08:00 Insulin Aspart (Novolog Insulin Pen) 8 unit WITH MEALS SC Last administered on 09/11/18 11:32; Admin Dose 8 UNIT; Start 09/06/18 at 17:55 Magnesium Hydroxide (Milk Of Mag) 30 ml DAILY PRN PO CONSTIPATION Last administered on 09/11/18 12:11; Admin Dose 30 ML; Start 09/07/18 at 16:00 Docusate Sodium (Colace) 100 mg BID PO Last administered on 09/11/18 08:19; Admin Dose 100 MG; Start 09/07/18 at 21:00 Morphine Sulfate (morphine) 1 mg Q4H PRN IV SEVERE PAIN LEVEL 7-10; Start 09/07/18 at 17:00 Tramadol HCl (Ultram) 50 mg Q6H PRN PO MODERATE PAIN LEVEL 4-6 Last administered on 09/11/18 12:11; Admin Dose 50 MG; Start 09/07/18 at 17:00 Enoxaparin Sodium (Lovenox) 40 mg DAILY SC Last administered on 09/11/18 08:31; Admin Dose 40 MG; Start 09/09/18 at 10:30 Sodium Chloride 1,000 ml @ 100 mls/hr Q10H IV Last administered on 09/11/18 11:44; Admin Dose 100 MLS/HR; Start 09/10/18 at 10:00 Cefepime HCl 50 ml @ 100 mls/hr Q12 IVPB Last administered on 09/11/18 08:18; Admin Dose 100 MLS/HR; Start 09/10/18 at 10:00 Polyethylene Glycol (Miralax) 17 gm DAILY PRN PO CONSTIPATION Last administered on 09/10/18 15:24; Admin Dose 17 GM; Start 09/10/18 at 10:00 Famotidine (Pepcid) 20 mg DAILY PO Last administered on 09/11/18 08:18; Admin Dose 20 MG; Start 09/10/18 at 23:00 YASMIN ALANIS MD Sep 11, 2018 15:08
[2018-09-11] MEDS: ACETAMINOPHEN 325 MG TAB PO PRN (15:44)
[2018-09-11] MEDS: ATORVASTATIN 10 MG TAB PO SCH (21:26)
[2018-09-11] MEDS: GABAPENTIN 100 MG CAP PO SCH (21:27)
[2018-09-12] VITALS (11 sets, daily range): BP systolic 90–142; BP diastolic 54–95; PULSE 58–96; RESP 16–20
[2018-09-12] MEDS: ACCU-CHEK XX SCH (02:00)
[2018-09-12] MEDS: ACETAMINOPHEN 325 MG TAB PO PRN (04:10)
[2018-09-12] MEDS: INSULIN ASPART [NOVOLOG] 3 ML PEN SC SCH ×7 (08:00→20:50)
[2018-09-12] MEDS: SOD CHLORIDE 0.9% 1,000 ML IV SCH ×3 (08:11→20:51)
[2018-09-12] MEDS: POLYETHYLENE GLYCOL 17 GM PACKET PO PRN (08:11)
[2018-09-12] MEDS: DOCUSATE SODIUM 100 MG CAP PO SCH (08:11)
[2018-09-12] MEDS: CEFEPIME 1GM/50 ML (PMX) 50 ML IVPB SCH (08:11)
[2018-09-12] MEDS: VITAMIN B COMPLEX/VIT C CAP PO SCH (08:11)
[2018-09-12] MEDS: FAMOTIDINE 20 MG TAB PO SCH (08:11)
[2018-09-12] MEDS: GABAPENTIN 100 MG CAP PO SCH ×3 (08:12→20:49)
[2018-09-12] MEDS: INSULIN GLARGINE [LANTus] (100 UNITS/ML) SYG SC SCH (08:25)
[2018-09-12] MEDS: ENOXAPARIN 40 MG/0.4 ML SYG SC SCH (08:26)
[2018-09-12] MEDS ORDERED: CALCIUM CARBONATE 500 MG CHEW TAB PO PRN (10:00)
[2018-09-12] MEDS ORDERED: LIDOCAINE/MYLANTA 40 ML BTL PO ONE (10:00)
[2018-09-12] MEDS ORDERED: BISACODYL (EC) 5 MG TAB PO PRN (10:00)
--- NOTE | 2018-09-12 10:32 | PN ---
Date/Time of Note Date/Time of Note DATE: 09/12/18 TIME: 10:32 Assessment/Plan VTE Prophylaxis Risk score (from Nsg)>0 risk: 3 SCD applied (from Nsg): Yes Pharmacological prophylaxis: LMWH Lines/Catheters IV Catheter Type (from Nrsg): Peripheral IV Urinary Cath still in place: No Assessment/Plan Assessment/Plan 1. Hypotension- improving - Per daughter, when patient started "getting sick" her BP was in the 90s - holding lisinopril at this time 2. 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 Recommending outpatient EMG/nerve studies - LP cultures noted - Brain MRI and spinal MRI negative for acute myelopathy or any focal brain process - s/p LP->CSF analysis shows elevated white count, protein and glucose pointing to inflammatory process 3. leukocytosis-resolved - Likely secondary to lumbar puncture, resolved, monitor off antibiotics 4. Chronic degenerative L5-S1 spondylosis - Neurosurgery consultation appreciated and no need for surgical intervention at this time. Will need outpatient follow up if any worsening of symptoms - Pain control/PT/Rehab 5. Poorly controlled diabetes - A1c noted - good glucose control - cont. basal/bolus 6. Essential hypertension - hold MURRAY given low BP 7. Dyslipidemia - continue statin 8. Diabetic neuropathy - continue Gabapentin 9. Depression - Yadira consulted for evaluation given patient has been tearful and daughter concerned about depressive symptoms since of pt father 10. Disposition - Awaiting ARU/SNF placement Result Diagram: 09/11/18 0506 09/11/18 0506 Results 24hrs Laboratory Tests Test 09/11/18 11:22 09/11/18 17:05 09/11/18 20:59 09/12/18 07:59 Bedside Glucose 114 88 145 87 Subjective 24 Hr Interval Summary Free Text/Dictation Patient states shes having reflux symptoms and constipation. Still tearful since wanting to go home. Does admit to feeling better. Exam/Review of Systems Exam Vitals Vital Signs Date Temp Pulse Resp B/P (MAP) Pulse Ox O2 O2 Flow FiO2 Time Delivery Rate 09/12/18 63 08:16 09/12/18 97.5 16 91/55 (67) 94 07:21 09/09/18 Room Air 05:25 Intake and Output 09/11/18 09/11/18 09/12/18 1515:00 23:00 07:00 IntakeIntake Total 50 ml 2200 ml 650 ml BalanceBalance 50 ml 2200 ml 650 ml Exam General: Patient is laying in bed and answers questions appropriately Neck: Supple Respiratory: Clear to auscultation bilaterally. no wheezing or rhonchi Cardiovascular: regular rate and rhythm, no obvious murmurs Gastrointestinal: soft, non-tender to palpation, nondistended, bowel sounds heard. Neurological: Moves all extremities spontaneously, 3/5 strength LUE and LLE, 5/5 RUE and RLE Skin: No new skin lesions Results Results 24hrs Laboratory Tests Test 09/11/18 11:22 09/11/18 17:05 09/11/18 20:59 09/12/18 07:59 Bedside Glucose 114 88 145 87 Medications Medication Current Medications IV Flush (NS 3 ml) 3 ml PER PROTOCOL IV ; Start 09/04/18 at 21:00 Ondansetron HCl (Zofran Inj) 4 mg Q6H PRN IV NAUSEA/VOMITING; Start 09/04/18 at 21:00 Acetaminophen (Tylenol Tab) 650 mg Q6H PRN PO .PAIN 1-3 OR TEMP Last administered on 09/12/18at 04:10; Admin Dose 650 MG; Start 09/04/18 at 21:00 Diagnostic Test (Pha) (Accu-Chek) 1 ea 02 XX Last administered on 09/11/18at 02:02; Admin Dose 1 EA; Start 09/06/18 at 02:00 Miscellaneous Information 1 ea NOTE XX ; Start 09/05/18 at 06:30 Glucose (Glutose) 15 gm Q15M PRN PO DECREASED GLUCOSE; Start 09/05/18 at 06:30 Glucose (Glutose) 22.5 gm Q15M PRN PO DECREASED GLUCOSE; Start 09/05/18 at 06:30 Dextrose (D50w Syringe) 25 ml Q15M PRN IV DECREASED GLUCOSE; Start 09/05/18 at 06:30 Dextrose (D50w Syringe) 50 ml Q15M PRN IV DECREASED GLUCOSE; Start 09/05/18 at 06:30 Glucagon (Glucagen) 1 mg Q15M PRN IM DECREASED GLUCOSE; Start 09/05/18 at 06:30 Glucose (Glutose) 15 gm Q15M PRN BUCCAL DECREASED GLUCOSE; Start 09/05/18 at 06:30 Vitamin B Complex/ Vitamin C (Berocca) 1 cap DAILY PO Last administered on 09/12/18 08:11; Admin Dose 1 CAP; Start 09/05/18 at 09:00 Lorazepam (Ativan) 0.5 mg PRIOR TO MRI PRN IV prior to mri; Start 09/05/18 at 07:00 Insulin Aspart (Novolog Insulin Pen) NOVOLOG *MILD* ALGORITHM WITH MEALS BEDTIME SC Last administered on 09/10/18 21:01; Admin Dose 1 UNIT; Start 09/05/18 at 17:55 Lisinopril (Zestril) 10 mg DAILY PO Last administered on 09/08/18 08:22; Admin Dose 10 MG; Start 09/07/18 at 09:00; Status Hold Atorvastatin Calcium (Lipitor) 10 mg HS PO Last administered on 09/11/18 21:26; Admin Dose 10 MG; Start 09/06/18 at 21:00 Insulin Glargine (Lantus) 24 units DAILY@0800 SC Last administered on 09/12/18 08:25; Admin Dose 24 UNITS; Start 09/07/18 at 08:00 Insulin Aspart (Novolog Insulin Pen) 8 unit WITH MEALS SC Last administered on 09/11/18 11:32; Admin Dose 8 UNIT; Start 09/06/18 at 17:55 Magnesium Hydroxide (Milk Of Mag) 30 ml DAILY PRN PO CONSTIPATION Last administered on 09/11/18 12:11; Admin Dose 30 ML; Start 09/07/18 at 16:00 Morphine Sulfate (morphine) 1 mg Q4H PRN IV SEVERE PAIN LEVEL 7-10; Start 09/07/18 at 17:00 Tramadol HCl (Ultram) 50 mg Q6H PRN PO MODERATE PAIN LEVEL 4-6 Last administered on 09/11/18 21:25; Admin Dose 50 MG; Start 09/07/18 at 17:00 Enoxaparin Sodium (Lovenox) 40 mg DAILY SC Last administered on 09/12/18 08:26; Admin Dose 40 MG; Start 09/09/18 at 10:30 Sodium Chloride 1,000 ml @ 100 mls/hr Q10H IV Last administered on 09/12/18 08:11; Admin Dose 100 MLS/HR; Start 09/10/18 at 10:00 Cefepime HCl 50 ml @ 100 mls/hr Q12 IVPB Last administered on 09/12/18at 08:11; Admin Dose 100 MLS/HR; Start 09/10/18 at 10:00 Polyethylene Glycol (Miralax) 17 gm DAILY PRN PO CONSTIPATION Last administered on 09/12/18at 08:11; Admin Dose 17 GM; Start 09/10/18 at 10:00 Gabapentin (Neurontin) 100 mg TID PO Last administered on 09/12/18at 08:12; Admin Dose 100 MG; Start 09/11/18 at 21:00 Bisacodyl (Dulcolax) 10 mg DAILY PRN PO .CONSTIPATION; Start 09/12/18 at 10:00 Pantoprazole (Protonix Tab) 40 mg DAILY@06 PO ; Start 09/13/18 at 06:00 Calcium Carbonate (Tums) 500 mg Q4H PRN PO reflux; Start 09/12/18 at 10:00 Senna/Docusate Sodium (Senokot-S) 1 tab BID PO ; Start 09/12/18 at 21:00 YASMIN ALANIS MD Sep 12, 2018 10:32
--- NOTE | 2018-09-12 16:08 | CONS ---
Assessment/Plan Assessment/Plan Assessment/Plan (Recall) 57 F c/ Hx of DM2, and HLD...who presents for evaluation of slowly progressive left sided weakness and sensory loss, for which neurology is consulted.. 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 MRI C and T spine is reassuringly negative fo myelopathy. MRI brain is without evidence of a focal brain process... CSF confirms a mild inflammatory process West Nile neg P: PT/OT as able EMG/NCS, which may be done as an outpatient Other management and supportive care per primary Consultation Date/Type/Reason Admit Date/Time Sep 04, 2018 at 20:33 Type of Consult Neurology Reason for Consultation b/l hand and left foot weakness and numbness. Requesting Provider: OLIVIA STACK Date/Time of Note DATE: 09/12/18 TIME: 16:07 24 HR Interval Summary Free Text/Dictation Continues acute care Exam/Review of Systems Exam Vitals Vital Signs Date Temp Pulse Resp B/P (MAP) Pulse Ox O2 O2 Flow FiO2 Time Delivery Rate 09/12/18 97.3 71 16 92/57 (69) 97 15:25 09/09/18 Room Air 05:25 Intake and Output 09/11/18 09/11/18 09/12/18 1515:00 23:00 07:00 IntakeIntake Total 50 ml 2200 ml 650 ml BalanceBalance 50 ml 2200 ml 650 ml Results Result Diagram: 09/11/18 0506 09/11/18 0506 Results 24hrs Laboratory Tests Test 09/11/18 17:05 09/11/18 20:59 09/12/18 07:59 09/12/18 12:03 Bedside Glucose 88 145 87 142 Medications Medication Current Medications IV Flush (NS 3 ml) 3 ml PER PROTOCOL IV ; Start 09/04/18 at 21:00 Ondansetron HCl (Zofran Inj) 4 mg Q6H PRN IV NAUSEA/VOMITING; Start 09/04/18 at 21:00 Acetaminophen (Tylenol Tab) 650 mg Q6H PRN PO .PAIN 1-3 OR TEMP Last administered on 09/12/18at 04:10; Admin Dose 650 MG; Start 09/04/18 at 21:00 Diagnostic Test (Pha) (Accu-Chek) 1 ea 02 XX Last administered on 09/11/18at 02:02; Admin Dose 1 EA; Start 09/06/18 at 02:00 Miscellaneous Information 1 ea NOTE XX ; Start 09/05/18 at 06:30 Glucose (Glutose) 15 gm Q15M PRN PO DECREASED GLUCOSE; Start 09/05/18 at 06:30 Glucose (Glutose) 22.5 gm Q15M PRN PO DECREASED GLUCOSE; Start 09/05/18 at 06:30 Dextrose (D50w Syringe) 25 ml Q15M PRN IV DECREASED GLUCOSE; Start 09/05/18 at 06:30 Dextrose (D50w Syringe) 50 ml Q15M PRN IV DECREASED GLUCOSE; Start 09/05/18 at 06:30 Glucagon (Glucagen) 1 mg Q15M PRN IM DECREASED GLUCOSE; Start 09/05/18 at 06:30 Glucose (Glutose) 15 gm Q15M PRN BUCCAL DECREASED GLUCOSE; Start 09/05/18 at 06:30 Vitamin B Complex/ Vitamin C (Berocca) 1 cap DAILY PO Last administered on 09/12/18at 08:11; Admin Dose 1 CAP; Start 09/05/18 at 09:00 Lorazepam (Ativan) 0.5 mg PRIOR TO MRI PRN IV prior to mri; Start 09/05/18 at 07:00 Insulin Aspart (Novolog Insulin Pen) NOVOLOG *MILD* ALGORITHM WITH MEALS BEDTIME SC Last administered on 09/12/18 12:09; Admin Dose 1 UNIT; Start 09/05/18 at 17:55 Lisinopril (Zestril) 10 mg DAILY PO Last administered on 09/08/18at 08:22; Admin Dose 10 MG; Start 09/07/18 at 09:00; Status Hold Atorvastatin Calcium (Lipitor) 10 mg HS PO Last administered on 09/11/18 21:26; Admin Dose 10 MG; Start 09/06/18 at 21:00 Insulin Glargine (Lantus) 24 units DAILY@0800 SC Last administered on 09/12/18 08:25; Admin Dose 24 UNITS; Start 09/07/18 at 08:00 Insulin Aspart (Novolog Insulin Pen) 8 unit WITH MEALS SC Last administered on 09/12/18 12:10; Admin Dose 8 UNIT; Start 09/06/18 at 17:55 Magnesium Hydroxide (Milk Of Mag) 30 ml DAILY PRN PO CONSTIPATION Last administered on 09/11/18 12:11; Admin Dose 30 ML; Start 09/07/18 at 16:00 Morphine Sulfate (morphine) 1 mg Q4H PRN IV SEVERE PAIN LEVEL 7-10; Start 09/07/18 at 17:00 Tramadol HCl (Ultram) 50 mg Q6H PRN PO MODERATE PAIN LEVEL 4-6 Last administered on 09/11/18 21:25; Admin Dose 50 MG; Start 09/07/18 at 17:00 Enoxaparin Sodium (Lovenox) 40 mg DAILY SC Last administered on 09/12/18 08:26; Admin Dose 40 MG; Start 09/09/18 at 10:30 Sodium Chloride 1,000 ml @ 100 mls/hr Q10H IV Last administered on 09/12/18 08:11; Admin Dose 100 MLS/HR; Start 09/10/18 at 10:00 Polyethylene Glycol (Miralax) 17 gm DAILY PRN PO CONSTIPATION Last administered on 09/12/18 08:11; Admin Dose 17 GM; Start 09/10/18 at 10:00 Gabapentin (Neurontin) 100 mg TID PO Last administered on 09/12/18 12:11; Admin Dose 100 MG; Start 09/11/18 at 21:00 Bisacodyl (Dulcolax) 10 mg DAILY PRN PO .CONSTIPATION; Start 09/12/18 at 10:00 Pantoprazole (Protonix Tab) 40 mg DAILY@06 PO ; Start 09/13/18 at 06:00 Calcium Carbonate (Tums) 500 mg Q4H PRN PO reflux; Start 09/12/18 at 10:00 Senna/Docusate Sodium (Senokot-S) 1 tab BID PO ; Start 09/12/18 at 21:00 DALJIT SAXENA Sep 12, 2018 16:08
--- NOTE | 2018-09-12 17:43 | QN ---
Documentation Comment Patient is a 57-year-old female who is currently on telemetry units. On a [id number] evaluation patient states she is just grieving over the loss of her father and she does not need to be seen by psychiatry. Denies suicidal ideation denies feeling of hopelessness contracted for safety ELLEN GARVIN NP Sep 12, 2018 17:43
[2018-09-12] MEDS: traMADol 50 MG TAB PO PRN (20:49)
[2018-09-12] MEDS: SENNA/DOCUSATE NA (8.6MG/50MG) TAB PO SCH (20:50)
[2018-09-12] MEDS: ATORVASTATIN 10 MG TAB PO SCH (20:50)
[2018-09-13] VITALS (8 sets, daily range): BP systolic 85–112; BP diastolic 52–62; PULSE 61–105; RESP 16–20
[2018-09-13] MEDS: ACCU-CHEK XX SCH (02:00)
[2018-09-13] MEDS: PANTOPRAZOLE (EC) 40 MG TAB PO SCH (05:02)
[2018-09-13] MEDS: INSULIN ASPART [NOVOLOG] 3 ML PEN SC SCH ×7 (08:00→21:00)
[2018-09-13] MEDS: ENOXAPARIN 40 MG/0.4 ML SYG SC SCH (08:30)
[2018-09-13] MEDS: INSULIN GLARGINE [LANTus] (100 UNITS/ML) SYG SC SCH (08:30)
[2018-09-13] MEDS: SENNA/DOCUSATE NA (8.6MG/50MG) TAB PO SCH ×2 (08:32→20:59)
[2018-09-13] MEDS: GABAPENTIN 100 MG CAP PO SCH ×3 (08:32→20:59)
[2018-09-13] MEDS: VITAMIN B COMPLEX/VIT C CAP PO SCH (08:32)
--- NOTE | 2018-09-13 13:33 | CONS ---
Assessment/Plan Assessment/Plan Assessment/Plan (Recall) 57 F c/ Hx of DM2, and HLD...who presents for evaluation of slowly progressive left sided weakness and sensory loss, for which neurology is consulted.. 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 MRI C and T spine is reassuringly negative fo myelopathy. MRI brain is without evidence of a focal brain process... CSF confirms a mild inflammatory process West Nile neg P: PT/OT as able EMG/NCS, which may be done as an outpatient Other management and supportive care per primary Will sign off for now; please call w/ ?s Consultation Date/Type/Reason Admit Date/Time Sep 04, 2018 at 20:33 Type of Consult Neurology Reason for Consultation b/l hand and left foot weakness and numbness. Requesting Provider: OLIVIA STACK Date/Time of Note DATE: 09/13/18 TIME: 13:32 24 HR Interval Summary Free Text/Dictation Continues acute care Exam/Review of Systems Exam Vitals Vital Signs Date Temp Pulse Resp B/P (MAP) Pulse Ox O2 O2 Flow FiO2 Time Delivery Rate 09/13/18 61 12:18 09/13/18 97.8 17 94/62 (73) 96 11:23 Intake and Output 09/12/18 09/12/18 09/13/18 1515:00 23:00 07:00 IntakeIntake Total 420 ml 2100 ml 1800 ml BalanceBalance 420 ml 2100 ml 1800 ml Results Result Diagram: 09/11/18 0506 09/11/18 0506 Results 24hrs Laboratory Tests Test 09/12/18 17:05 09/12/18 20:39 09/13/18 08:13 09/13/18 12:09 Bedside Glucose 93 170 111 100 Medications Medication Current Medications IV Flush (NS 3 ml) 3 ml PER PROTOCOL IV ; Start 09/04/18 at 21:00 Ondansetron HCl (Zofran Inj) 4 mg Q6H PRN IV NAUSEA/VOMITING; Start 09/04/18 at 21:00 Acetaminophen (Tylenol Tab) 650 mg Q6H PRN PO .PAIN 1-3 OR TEMP Last administer ed on 09/12/18at 04:10; Admin Dose 650 MG; Start 09/04/18 at 21:00 Diagnostic Test (Pha) (Accu-Chek) 1 ea 02 XX Last administered on 09/11/18at 02:02; Admin Dose 1 EA; Start 09/06/18 at 02:00 Miscellaneous Information 1 ea NOTE XX ; Start 09/05/18 at 06:30 Glucose (Glutose) 15 gm Q15M PRN PO DECREASED GLUCOSE; Start 09/05/18 at 06:30 Glucose (Glutose) 22.5 gm Q15M PRN PO DECREASED GLUCOSE; Start 09/05/18 at 06:30 Dextrose (D50w Syringe) 25 ml Q15M PRN IV DECREASED GLUCOSE; Start 09/05/18 at 06:30 Dextrose (D50w Syringe) 50 ml Q15M PRN IV DECREASED GLUCOSE; Start 09/05/18 at 06:30 Glucagon (Glucagen) 1 mg Q15M PRN IM DECREASED GLUCOSE; Start 09/05/18 at 06:30 Glucose (Glutose) 15 gm Q15M PRN BUCCAL DECREASED GLUCOSE; Start 09/05/18 at 06:30 Vitamin B Complex/ Vitamin C (Berocca) 1 cap DAILY PO Last administered on 09/13/18at 08:32; Admin Dose 1 CAP; Start 09/05/18 at 09:00 Lorazepam (Ativan) 0.5 mg PRIOR TO MRI PRN IV prior to mri; Start 09/05/18 at 07:00 Insulin Aspart (Novolog Insulin Pen) NOVOLOG *MILD* ALGORITHM WITH MEALS BEDTIME SC Last administered on 09/12/18 12:09; Admin Dose 1 UNIT; Start 09/05/18 at 17:55 Lisinopril (Zestril) 10 mg DAILY PO Last administered on 09/08/18at 08:22; Admin Dose 10 MG; Start 09/07/18 at 09:00; Status Hold Atorvastatin Calcium (Lipitor) 10 mg HS PO Last administered on 09/12/18at 20:50; Admin Dose 10 MG; Start 09/06/18 at 21:00 Insulin Glargine (Lantus) 24 units DAILY@0800 SC Last administered on 09/13/18 08:30; Admin Dose 24 UNITS; Start 09/07/18 at 08:00 Insulin Aspart (Novolog Insulin Pen) 8 unit WITH MEALS SC Last administered on 09/13/18 12:13; Admin Dose 8 UNIT; Start 09/06/18 at 17:55 Magnesium Hydroxide (Milk Of Mag) 30 ml DAILY PRN PO CONSTIPATION Last administered on 09/11/18 12:11; Admin Dose 30 ML; Start 09/07/18 at 16:00 Morphine Sulfate (morphine) 1 mg Q4H PRN IV SEVERE PAIN LEVEL 7-10; Start 09/07/18 at 17:00 Tramadol HCl (Ultram) 50 mg Q6H PRN PO MODERATE PAIN LEVEL 4-6 Last administered on 09/12/18 20:49; Admin Dose 50 MG; Start 09/07/18 at 17:00 Enoxaparin Sodium (Lovenox) 40 mg DAILY SC Last administered on 09/13/18 08:30; Admin Dose 40 MG; Start 09/09/18 at 10:30 Polyethylene Glycol (Miralax) 17 gm DAILY PRN PO CONSTIPATION Last administered on 09/12/18 08:11; Admin Dose 17 GM; Start 09/10/18 at 10:00 Gabapentin (Neurontin) 100 mg TID PO Last administered on 09/13/18 13:05; Adm in Dose 100 MG; Start 09/11/18 at 21:00 Bisacodyl (Dulcolax) 10 mg DAILY PRN PO .CONSTIPATION; Start 09/12/18 at 10:00 Pantoprazole (Protonix Tab) 40 mg DAILY@06 PO Last administered on 09/13/18 05 :02; Admin Dose 40 MG; Start 09/13/18 at 06:00 Calcium Carbonate (Tums) 500 mg Q4H PRN PO reflux; Start 09/12/18 at 10:00 Senna/Docusate Sodium (Senokot-S) 1 tab BID PO Last administered on 09/13/18 08:32; Admin Dose 1 TAB; Start 09/12/18 at 21:00 DALJIT SAXENA Sep 13, 2018 13:32
--- NOTE | 2018-09-13 15:57 | PN ---
Date/Time of Note Date/Time of Note DATE: 09/13/18 TIME: 15:54 Assessment/Plan VTE Prophylaxis Risk score (from Nsg)>0 risk: 1 SCD applied (from Nsg): Yes Pharmacological prophylaxis: LMWH Lines/Catheters IV Catheter Type (from Nrsg): Peripheral IV Urinary Cath still in place: No Assessment/Plan Assessment/Plan 1. Hypotension- stable - Per daughter, when patient started "getting sick" her BP was in the 90s - holding lisinopril at this time 2. 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 Recommending outpatient EMG/nerve studies - LP cultures noted - Brain MRI and spinal MRI negative for acute myelopathy or any focal brain process - s/p LP->CSF analysis shows elevated white count, protein and glucose pointing to inflammatory process 3. leukocytosis-resolved - Likely secondary to lumbar puncture, resolved, monitor off antibiotics 4. Chronic degenerative L5-S1 spondylosis - Neurosurgery consultation appreciated and no need for surgical intervention at this time. Will need outpatient follow up if any worsening of symptoms - Pain control/PT/Rehab 5. Poorly controlled diabetes - A1c noted - good glucose control - cont. basal/bolus 6. Essential hypertension - no BP meds on board given low BP 7. Dyslipidemia - continue statin 8. Diabetic neuropathy - continue Gabapentin 9. Depression - Appreciate psychiatry consultation as patient initially requested to be seen but then refused. Appears mood has been improving based on clinical progress 10. Disposition - on board for SNF placement Result Diagram: 09/11/18 0506 09/11/18 0506 Results 24hrs Laboratory Tests Test 09/12/18 17:05 09/12/18 20:39 09/13/18 08:13 09/13/18 12:09 Bedside Glucose 93 170 111 100 Subjective 24 Hr Interval Summary Free Text/Dictation Patient states shes feeling better and had BM yesterday with relief of discomfort. Eager to ambulate more around unit and get stronger. Exam/Review of Systems Exam Vitals Vital Signs Date Temp Pulse Resp B/P (MAP) Pulse Ox O2 O2 Flow FiO2 Time Delivery Rate 09/13/18 98.4 75 16 85/53 (64) 96 15:26 Intake and Output 09/12/18 09/12/18 09/13/18 1515:00 23:00 07:00 IntakeIntake Total 420 ml 2100 ml 1800 ml BalanceBalance 420 ml 2100 ml 1800 ml Exam General: Patient is laying in bed and answers questions appropriately Neck: Supple Respiratory: Clear to auscultation bilaterally. no wheezing or rhonchi Cardiovascular: regular rate and rhythm, no obvious murmurs Gastrointestinal: soft, non-tender to palpation, nondistended, bowel sounds heard. Neurological: Moves all extremities spontaneously, 3/5 strength LUE and LLE, 5/5 RUE and RLE Skin: No new skin lesions Results Results 24hrs Laboratory Tests Test 09/12/18 17:05 09/12/18 20:39 09/13/18 08:13 09/13/18 12:09 Bedside Glucose 93 170 111 100 Medications Medication Current Medications IV Flush (NS 3 ml) 3 ml PER PROTOCOL IV ; Start 09/04/18 at 21:00 Ondansetron HCl (Zofran Inj) 4 mg Q6H PRN IV NAUSEA/VOMITING; Start 09/04/18 at 21:00 Acetaminophen (Tylenol Tab) 650 mg Q6H PRN PO .PAIN 1-3 OR TEMP Last administered on 09/12/18at 04:10; Admin Dose 650 MG; Start 09/04/18 at 21:00 Diagnostic Test (Pha) (Accu-Chek) 1 ea 02 XX Last administered on 09/11/18at 02:02; Admin Dose 1 EA; Start 09/06/18 at 02:00 Miscellaneous Information 1 ea NOTE XX ; Start 09/05/18 at 06:30 Glucose (Glutose) 15 gm Q15M PRN PO DECREASED GLUCOSE; Start 09/05/18 at 06:30 Glucose (Glutose) 22.5 gm Q15M PRN PO DECREASED GLUCOSE; Start 09/05/18 at 06:30 Dextrose (D50w Syringe) 25 ml Q15M PRN IV DECREASED GLUCOSE; Start 09/05/18 at 06:30 Dextrose (D50w Syringe) 50 ml Q15M PRN IV DECREASED GLUCOSE; Start 09/05/18 at 06:30 Glucagon (Glucagen) 1 mg Q15M PRN IM DECREASED GLUCOSE; Start 09/05/18 at 06:30 Glucose (Glutose) 15 gm Q15M PRN BUCCAL DECREASED GLUCOSE; Start 09/05/18 at 06:30 Vitamin B Complex/ Vitamin C (Berocca) 1 cap DAILY PO Last administered on 09/13/18 08:32; Admin Dose 1 CAP; Start 09/05/18 at 09:00 Lorazepam (Ativan) 0.5 mg PRIOR TO MRI PRN IV prior to mri; Start 09/05/18 at 07:00 Insulin Aspart (Novolog Insulin Pen) NOVOLOG *MILD* ALGORITHM WITH MEALS BEDTIME SC Last administered on 09/12/18 12:09; Admin Dose 1 UNIT; Start 09/05/18 at 17:55 Lisinopril (Zestril) 10 mg DAILY PO Last administered on 09/08/18 08:22; Admin Dose 10 MG; Start 09/07/18 at 09:00; Status Hold Atorvastatin Calcium (Lipitor) 10 mg HS PO Last administered on 09/12/18 20:50; Admin Dose 10 MG; Start 09/06/18 at 21:00 Insulin Glargine (Lantus) 24 units DAILY@0800 SC Last administered on 09/13/18 08:30; Admin Dose 24 UNITS; Start 09/07/18 at 08:00 Insulin Aspart (Novolog Insulin Pen) 8 unit WITH MEALS SC Last administered on 09/13/18 12:13; Admin Dose 8 UNIT; Start 09/06/18 at 17:55 Magnesium Hydroxide (Milk Of Mag) 30 ml DAILY PRN PO CONSTIPATION Last administered on 09/11/18 12:11; Admin Dose 30 ML; Start 09/07/18 at 16:00 Morphine Sulfate (morphine) 1 mg Q4H PRN IV SEVERE PAIN LEVEL 7-10; Start 09/07/18 at 17:00 Tramadol HCl (Ultram) 50 mg Q6H PRN PO MODERATE PAIN LEVEL 4-6 Last administered on 09/12/18 20:49; Admin Dose 50 MG; Start 09/07/18 at 17:00 Enoxaparin Sodium (Lovenox) 40 mg DAILY SC Last administered on 09/13/18 08:30; Admin Dose 40 MG; Start 09/09/18 at 10:30 Polyethylene Glycol (Miralax) 17 gm DAILY PRN PO CONSTIPATION Last administered on 09/12/18 08:11; Admin Dose 17 GM; Start 09/10/18 at 10:00 Gabapentin (Neurontin) 100 mg TID PO Last administered on 6/26/19at 13:05; Admin Dose 100 MG; Start 09/11/18 at 21:00 Bisacodyl (Dulcolax) 10 mg DAILY PRN PO .CONSTIPATION; Start 09/12/18 at 10:00 Pantoprazole (Protonix Tab) 40 mg DAILY@06 PO Last administered on 09/13/18at 05:02; Admin Dose 40 MG; Start 09/13/18 at 06:00 Calcium Carbonate (Tums) 500 mg Q4H PRN PO reflux; Start 09/12/18 at 10:00 Senna/Docusate Sodium (Senokot-S) 1 tab BID PO Last administered on 09/13/18at 08:32; Admin Dose 1 TAB; Start 09/12/18 at 21:00 YASMIN ALANIS MD Sep 13, 2018 15:57
[2018-09-13] MEDS: ATORVASTATIN 10 MG TAB PO SCH (20:59)
[2018-09-13] MEDS: traMADol 50 MG TAB PO PRN ×2 (20:59→22:33)
[2018-09-14] VITALS: BP 123/60; PULSE 72; RESP 18
[2018-09-14] MEDS: ACCU-CHEK XX SCH (02:00)
[2018-09-14 04:00] VITALS: BP 93/52; PULSE 71; RESP 18
[2018-09-14] MEDS: PANTOPRAZOLE (EC) 40 MG TAB PO SCH (05:42)
[2018-09-14 07:19] VITALS: BP 94/61; PULSE 63; RESP 18
[2018-09-14] MEDS: INSULIN ASPART [NOVOLOG] 3 ML PEN SC SCH ×7 (07:59→23:50)
[2018-09-14] MEDS: INSULIN GLARGINE [LANTus] (100 UNITS/ML) SYG SC SCH ×2 (08:00→09:15)
[2018-09-14] MEDS: SENNA/DOCUSATE NA (8.6MG/50MG) TAB PO SCH ×2 (09:09→21:00)
[2018-09-14] MEDS: traMADol 50 MG TAB PO PRN ×3 (09:09→21:41)
[2018-09-14] MEDS: VITAMIN B COMPLEX/VIT C CAP PO SCH (09:09)
[2018-09-14] MEDS: GABAPENTIN 100 MG CAP PO SCH ×3 (09:09→21:42)
[2018-09-14] MEDS: ENOXAPARIN 40 MG/0.4 ML SYG SC SCH (09:15)
[2018-09-14 11:42] VITALS: BP 109/59; PULSE 64; RESP 18
--- NOTE | 2018-09-14 11:49 | PN ---
DATE: 09/11/2018 SUBJECTIVE: The patient is alert, feels good. Denies pain. No fevers overnight. WBC 10.7, platelets 298, neutrophils 57.2, BUN 15, creatinine 0.54. MICROBIOLOGY: All cultures have been negative. PHYSICAL EXAMINATION: GENERAL: Well-nourished, well-developed, middle-aged woman who is awake, in no distress. HEENT: Head atraumatic, normocephalic. NECK: Supple. CHEST: Rise symmetrical. Breath sounds clear. HEART: S1, S2. ABDOMEN: Soft, bowel tones present. EXTREMITIES: Without cyanosis. ASSESSMENT: 1. Status post left-sided weakness, no evidence of infection, CSF culture negative. 2. Obesity. 3. Diabetes. 4. Hypertension. PLAN: The patient is stable. Consider discontinuing antibiotics. Follow neurology recommendations. Dictated By: STEPH BENITEZ HAND MIXER for JIL GONZALEZ/ANDRES Conf#: [id number] DID#: [id number]
--- NOTE | 2018-09-14 12:25 | PN ---
Date/Time of Note Date/Time of Note DATE: 09/14/18 TIME: 12:21 Assessment/Plan VTE Prophylaxis Risk score (from Nsg)>0 risk: 1 SCD applied (from Nsg): Yes Pharmacological prophylaxis: NA/contraindicated Pharm contraindication: low risk/ambulating Lines/Catheters IV Catheter Type (from Nrsg): Peripheral IV Urinary Cath still in place: No Assessment/Plan Assessment/Plan 1. Hypotension- improved - Per daughter, when patient started "getting sick" her BP was in the 90s 2. 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 Recommending outpatient EMG/nerve studies - LP cultures noted - Brain MRI and spinal MRI negative for acute myelopathy or any focal brain process - s/p LP->CSF analysis shows elevated white count, protein and glucose pointing to inflammatory process 3. leukocytosis-resolved - Likely secondary to lumbar puncture, resolved, monitor off antibiotics 4. Chronic degenerative L5-S1 spondylosis - Neurosurgery consultation appreciated and no need for surgical intervention at this time. Will need outpatient follow up if any worsening of symptoms - Pain control/PT/Rehab 5. Poorly controlled diabetes - A1c noted - good glucose control - cont. basal/bolus 6. Essential hypertension - no BP meds on board given low BP 7. Dyslipidemia - continue statin 8. Diabetic neuropathy - continue Gabapentin 9. Depression - Appreciate psychiatry consultation as patient initially requested to be seen but then refused. Appears mood has been improving based on clinical progress 10. Disposition - Accepted to SNF pending insurance approval Result Diagram: 09/11/18 0506 09/11/18 0506 Results 24hrs Laboratory Tests Test 09/13/18 17:31 09/13/18 21:01 09/14/18 07:59 09/14/18 12:07 Bedside Glucose 146 121 103 169 Subjective 24 Hr Interval Summary Free Text/Dictation Patient doing well and states shes feeling better. Worked more with physical therapy this am as well. Still with lower back pain. Exam/Review of Systems Exam Vitals Vital Signs Date Temp Pulse Resp B/P (MAP) Pulse Ox O2 O2 Flow FiO2 Time Delivery Rate 09/14/18 98.2 64 18 109/59 97 11:42 (76) 09/14/18 Room Air 04:00 Intake and Output 09/13/18 09/13/18 09/14/18 1515:00 23:00 07:00 IntakeIntake Total 870 ml 350 ml 240 ml BalanceBalance 870 ml 350 ml 240 ml Exam General: Patient is laying in bed and answers questions appropriately Neck: Supple Respiratory: Clear to auscultation bilaterally. no wheezing or rhonchi Cardiovascular: regular rate and rhythm, no obvious murmurs Gastrointestinal: soft, non-tender to palpation, nondistended, bowel sounds heard. Neurological: Moves all extremities spontaneously, 4/5 strength LUE and LLE, 5/5 RUE and RLE Skin: No new skin lesions Results Results 24hrs Laboratory Tests Test 09/13/18 17:31 09/13/18 21:01 09/14/18 07:59 09/14/18 12:07 Bedside Glucose 146 121 103 169 Medications Medication Current Medications IV Flush (NS 3 ml) 3 ml PER PROTOCOL IV ; Start 09/04/18 at 21:00 Ondansetron HCl (Zofran Inj) 4 mg Q6H PRN IV NAUSEA/VOMITING; Start 09/04/18 at 21:00 Acetaminophen (Tylenol Tab) 650 mg Q6H PRN PO .PAIN 1-3 OR TEMP Last administered on 09/12/18at 04:10; Admin Dose 650 MG; Start 09/04/18 at 21:00 Diagnostic Test (Pha) (Accu-Chek) 1 ea 02 XX Last administered on 09/11/18at 02:02; Admin Dose 1 EA; Start 09/06/18 at 02:00 Miscellaneous Information 1 ea NOTE XX ; Start 09/05/18 at 06:30 Glucose (Glutose) 15 gm Q15M PRN PO DECREASED GLUCOSE; Start 09/05/18 at 06:30 Glucose (Glutose) 22.5 gm Q15M PRN PO DECREASED GLUCOSE; Start 09/05/18 at 06:30 Dextrose (D50w Syringe) 25 ml Q15M PRN IV DECREASED GLUCOSE; Start 09/05/18 at 06:30 Dextrose (D50w Syringe) 50 ml Q15M PRN IV DECREASED GLUCOSE; Start 09/05/18 at 06:30 Glucagon (Glucagen) 1 mg Q15M PRN IM DECREASED GLUCOSE; Start 09/05/18 at 06:30 Glucose (Glutose) 15 gm Q15M PRN BUCCAL DECREASED GLUCOSE; Start 09/05/18 at 0 6:30 Vitamin B Complex/ Vitamin C (Berocca) 1 cap DAILY PO Last administered on 09/14/18 09:09; Admin Dose 1 CAP; Start 09/05/18 at 09:00 Lorazepam (Ativan) 0.5 mg PRIOR TO MRI PRN IV prior to mri; Start 09/05/18 at 07:00 Insulin Aspart (Novolog Insulin Pen) NOVOLOG *MILD* ALGORITHM WITH MEALS BE DTIME SC Last administered on 09/14/18 12:13; Admin Dose 1 UNIT; Start 09/05/18 at 17:55 Lisinopril (Zestril) 10 mg DAILY PO Last administered on 09/08/18 08:22; Admin Dose 10 MG; Start 09/07/18 at 09:00; Status Hold Atorvastatin Calcium (Lipitor) 10 mg HS PO Last administered on 09/13/18 20: 59; Admin Dose 10 MG; Start 09/06/18 at 21:00 Insulin Glargine (Lantus) 24 units DAILY@0800 SC Last administered on 09/14/18 09:15; Admin Dose 24 UNITS; Start 09/07/18 at 08:00 Insulin Aspart (Novolog Insulin Pen) 8 unit WITH MEALS SC Last administered on 09/14/18 12:13; Admin Dose 8 UNIT; Start 09/06/18 at 17:55 Magnesium Hydroxide (Milk Of Mag) 30 ml DAILY PRN PO CONSTIPATION Last administ ered on 09/11/18 12:11; Admin Dose 30 ML; Start 09/07/18 at 16:00 Morphine Sulfate (morphine) 1 mg Q4H PRN IV SEVERE PAIN LEVEL 7-10; Start 09/07/18 at 17:00 Tramadol HCl (Ultram) 50 mg Q6H PRN PO MODERATE PAIN LEVEL 4-6 Last administered on 09/14/18 09:09; Admin Dose 50 MG; Start 09/07/18 at 17:00 Enoxaparin Sodium (Lovenox) 40 mg DAILY SC Last administered on 09/14/18 09:15; Admin Dose 40 MG; Start 09/09/18 at 10:30 Polyethylene Glycol (Miralax) 17 gm DAILY PRN PO CONSTIPATION Last administered on 09/12/18 08:11; Admin Dose 17 GM; Start 6/23/19 at 10:00 Gabapentin (Neurontin) 100 mg TID PO Last administered on 09/14/18at 12:10; Admin Dose 100 MG; Start 09/11/18 at 21:00 Bisacodyl (Dulcolax) 10 mg DAILY PRN PO .CONSTIPATION; Start 09/12/18 at 10:00 Pantoprazole (Protonix Tab) 40 mg DAILY@06 PO Last administered on 09/14/18at 05:42; Admin Dose 40 MG; Start 09/13/18 at 06:00 Calcium Carbonate (Tums) 500 mg Q4H PRN PO reflux; Start 09/12/18 at 10:00 Senna/Docusate Sodium (Senokot-S) 1 tab BID PO Last administered on 09/14/18at 09:09; Admin Dose 1 TAB; Start 09/12/18 at 21:00 YASMIN ALANIS MD Sep 14, 2018 12:25
[2018-09-14 16:03] VITALS: BP 92/52; PULSE 79; RESP 19
[2018-09-14 20:00] VITALS: BP 108/56; PULSE 77; RESP 18
[2018-09-14] MEDS: ATORVASTATIN 10 MG TAB PO SCH (21:42)
[2018-09-15] VITALS: BP 98/55; PULSE 67; RESP 18
[2018-09-15] MEDS: ACCU-CHEK XX SCH (02:55)
[2018-09-15 04:19] VITALS: BP 93/52; PULSE 66; RESP 18
[2018-09-15] MEDS: PANTOPRAZOLE (EC) 40 MG TAB PO SCH (06:33)
[2018-09-15 07:24] VITALS: BP 100/53; PULSE 66; RESP 22
[2018-09-15] MEDS: INSULIN ASPART [NOVOLOG] 3 ML PEN SC SCH ×6 (08:00→17:17)
[2018-09-15] MEDS: SENNA/DOCUSATE NA (8.6MG/50MG) TAB PO SCH (08:11)
[2018-09-15] MEDS: GABAPENTIN 100 MG CAP PO SCH ×2 (08:11→12:01)
[2018-09-15] MEDS: VITAMIN B COMPLEX/VIT C CAP PO SCH (08:11)
[2018-09-15] MEDS: ENOXAPARIN 40 MG/0.4 ML SYG SC SCH (08:15)
[2018-09-15] MEDS: MENTHOL/METH SALICYLATE OINT TOP SCH ×3 (11:00→17:00)
[2018-09-15 11:30] VITALS: BP 98/57; PULSE 81; RESP 22
--- NOTE | 2018-09-15 14:45 | PN ---
Date/Time of Note Date/Time of Note DATE: 09/15/18 TIME: 14:42 Assessment/Plan VTE Prophylaxis Risk score (from Nsg)>0 risk: 2 SCD applied (from Nsg): Yes Pharmacological prophylaxis: NA/contraindicated Pharm contraindication: low risk/ambulating Lines/Catheters IV Catheter Type (from Nrsg): Saline Lock Urinary Cath still in place: No Assessment/Plan Assessment/Plan 1. Hypotension- resolved - Encouraged PO hydration 2. 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 Recommending outpatient EMG/nerve studies - LP cultures noted - Brain MRI and spinal MRI negative for acute myelopathy or any focal brain process - s/p LP->CSF analysis shows elevated white count, protein and glucose pointing to inflammatory process 3. leukocytosis-resolved - Likely secondary to lumbar puncture, resolved, monitor off antibiotics 4. Chronic degenerative L5-S1 spondylosis - Neurosurgery consultation appreciated and no need for surgical intervention at this time. Will need outpatient follow up if any worsening of symptoms - Pain control/PT/Rehab 5. Poorly controlled diabetes - A1c noted - good glucose control - cont. basal/bolus 6. Essential hypertension - no BP meds on board given low BP 7. Dyslipidemia - continue statin 8. Diabetic neuropathy - continue Gabapentin 9. Depression - Appreciate psychiatry consultation as patient initially requested to be seen but then refused. Appears mood has been improving based on clinical progress 10. Disposition - Medically stable for discharge home Result Diagram: 09/11/18 0506 09/11/18 0506 Results 24hrs Laboratory Tests Test 09/14/18 17:35 09/14/18 23:59 09/15/18 08:09 09/15/18 11:54 Bedside Glucose 142 136 98 125 Subjective 24 Hr Interval Summary Free Text/Dictation Patient states shes feeling better today and stronger. She is still with LLE weakness but progressing well with PT. Unable to afford copay for SNF and dis cussed with daughter. Opted for discharge home with HHPT. Exam/Review of Systems Exam Vitals Vital Signs Date Temp Pulse Resp B/P (MAP) Pulse Ox O2 O2 Flow FiO2 Time Delivery Rate 09/15/18 98.0 81 22 98/57 (71) 96 Room Air 11:30 Intake and Output 09/14/18 09/14/18 09/15/18 1515:00 23:00 07:00 IntakeIntake Total 780 ml 480 ml 480 ml BalanceBalance 780 ml 480 ml 480 ml Exam General: Patient is laying in bed and answers questions appropriately Neck: Supple Respiratory: Clear to auscultation bilaterally. no wheezing or rhonchi Cardiovascular: regular rate and rhythm, no obvious murmurs Gastrointestinal: soft, non-tender to palpation, nondistended, bowel sounds heard. Neurological: Moves all extremities spontaneously, 4/5 strength LUE and LLE, 5/5 RUE and RLE Skin: No new skin lesions Results Results 24hrs Laboratory Tests Test 09/14/18 17:35 09/14/18 23:59 09/15/18 08:09 09/15/18 11:54 Bedside Glucose 142 136 98 125 Medications Medication Current Medications IV Flush (NS 3 ml) 3 ml PER PROTOCOL IV ; Start 09/04/18 at 21:00 Ondansetron HCl (Zofran Inj) 4 mg Q6H PRN IV NAUSEA/VOMITING; Start 09/04/18 at 21:00 Acetaminophen (Tylenol Tab) 650 mg Q6H PRN PO .PAIN 1-3 OR TEMP Last administered on 09/12/18at 04:10; Admin Dose 650 MG; Start 09/04/18 at 21:00 Diagnostic Test (Pha) (Accu-Chek) 1 ea 02 XX Last administered on 09/11/18at 02:02; Admin Dose 1 EA; Start 09/06/18 at 02:00 Miscellaneous Information 1 ea NOTE XX ; Start 09/05/18 at 06:30 Glucose (Glutose) 15 gm Q15M PRN PO DECREASED GLUCOSE; Start 09/05/18 at 06:30 Glucose (Glutose) 22.5 gm Q15M PRN PO DECREASED GLUCOSE; Start 09/05/18 at 06:30 Dextrose (D50w Syringe) 25 ml Q15M PRN IV DECREASED GLUCOSE; Start 09/05/18 at 06:30 Dextrose (D50w Syringe) 50 ml Q15M PRN IV DECREASED GLUCOSE; Start 09/05/18 at 06:30 Glucagon (Glucagen) 1 mg Q15M PRN IM DECREASED GLUCOSE; Start 09/05/18 at 06:30 Glucose (Glutose) 15 gm Q15M PRN BUCCAL DECREASED GLUCOSE; Start 09/05/18 at 06 :30 Vitamin B Complex/ Vitamin C (Berocca) 1 cap DAILY PO Last administered on 09/15/18 08:11; Admin Dose 1 CAP; Start 09/05/18 at 09:00 Lorazepam (Ativan) 0.5 mg PRIOR TO MRI PRN IV prior to mri; Start 09/05/18 at 07:00 Insulin Aspart (Novolog Insulin Pen) NOVOLOG *MILD* ALGORITHM WITH MEALS BED TIME SC Last administered on 09/14/18 17:43; Admin Dose 1 UNIT; Start 09/05/18 at 17:55 Lisinopril (Zestril) 10 mg DAILY PO Last administered on 09/08/18 08:22; Admin Dose 10 MG; Start 09/07/18 at 09:00; Status Hold Atorvastatin Calcium (Lipitor) 10 mg HS PO Last administered on 09/14/18 21:4 2; Admin Dose 10 MG; Start 09/06/18 at 21:00 Insulin Glargine (Lantus) 24 units DAILY@0800 SC Last administered on 09/14/18 09:15; Admin Dose 24 UNITS; Start 09/07/18 at 08:00 Insulin Aspart (Novolog Insulin Pen) 8 unit WITH MEALS SC Last administered on 09/15/18 12:26; Admin Dose 8 UNIT; Start 09/06/18 at 17:55 Magnesium Hydroxide (Milk Of Mag) 30 ml DAILY PRN PO CONSTIPATION Last administered on 09/11/18 12:11; Admin Dose 30 ML; Start 09/07/18 at 16:00 Morphine Sulfate (morphine) 1 mg Q4H PRN IV SEVERE PAIN LEVEL 7-10; Start 09/07/18 at 17:00 Tramadol HCl (Ultram) 50 mg Q6H PRN PO MODERATE PAIN LEVEL 4-6 Last administered on 09/14/18 21:41; Admin Dose 50 MG; Start 09/07/18 at 17:00 Enoxaparin Sodium (Lovenox) 40 mg DAILY SC Last administered on 09/15/18 08:15; Admin Dose 40 MG; Start 09/09/18 at 10:30 Polyethylene Glycol (Miralax) 17 gm DAILY PRN PO CONSTIPATION Last administered on 09/12/18 08:11; Admin Dose 17 GM; Start 09/10/18 at 10:00 Gabapentin (Neurontin) 100 mg TID PO Last administered on 09/15/18at 12:01; Admin Dose 100 MG; Start 09/11/18 at 21:00 Bisacodyl (Dulcolax) 10 mg DAILY PRN PO .CONSTIPATION; Start 09/12/18 at 10:00 Pantoprazole (Protonix Tab) 40 mg DAILY@06 PO Last administered on 09/15/18at 06:33; Admin Dose 40 MG; Start 09/13/18 at 06:00 Calcium Carbonate (Tums) 500 mg Q4H PRN PO reflux; Start 09/12/18 at 10:00 Senna/Docusate Sodium (Senokot-S) 1 tab BID PO Last administered on 09/15/18at 08:11; Admin Dose 1 TAB; Start 09/12/18 at 21:00 Menthol/Methyl Salicylate (Adelfo Singh) 1 applic QID TOP Last administered on 09/15/18at 13:21; Admin Dose 1 APPLIC; Start 09/15/18 at 11:00 YASMIN ALANIS MD Sep 15, 2018 14:45
[2018-09-15] MEDS ORDERED: INSU100I33 SC (14:49)
[2018-09-15] MEDS ORDERED: GABA100C14 PO (14:49)
[2018-09-15] MEDS ORDERED: FAMO20TA18 PO (14:49)
[2018-09-15] MEDS ORDERED: NOVO3I SC (14:49)
[2018-09-15] MEDS ORDERED: TRAM50TA2 PO (14:49)
[2018-09-15] MEDS ORDERED: NEED-135 MC (14:52)
--- NOTE | 2018-09-15 14:53 | PDOCDIS ---
Discharge Instructions DIAGNOSIS Discharge Diagnosis 1. Hypotension- resolved 2. Left-sided weakness/numbness, rule out postinfectious polyneuropathy 3. leukocytosis-resolved 4. Chronic degenerative L5-S1 spondylosis 5. Poorly controlled diabetes 6. Essential hypertension 7. Dyslipidemia 8. Diabetic neuropathy CONDITION [id number] Patient Condition: [id number] Stable HOME CARE INSTRUCTIONS: [id number] Diet Instructions: [id number] Low Fat /Cholesterol [id number] Special Diet: Okyoh2c low sugar, low carb diet FOLLOW UP/APPOINTMENTS Follow-up Plan 1. Follow up with your primary care physician in 1-2 weeks 2. Please ask your PCP for referral to a Neurology for EMG studies if still experiencing left sided weakness 3. You will need to follow up with a neurosurgeon if your lower back pain worsens 4. Continue on Metformin and Glyburide as you were taking before. You were started on Basaglar 24 units daily and Novolog 8 units with meals. This is the regimen you were on while in the hospital and had very good sugar control 5. You will have home health services come to your home to check your vitals and provide physical therapy 6. If experiencing any concerning symptoms, please go to your closest emergency department YASMIN ALANIS MD Sep 15, 2018 14:53
[2018-09-15 16:22] VITALS: BP 91/54; PULSE 59
--- NOTE | 2018-09-15 17:12 | DS ---
Date/Time of Note Date/Time of Note DATE: 09/15/18 TIME: 17:04 Discharge Summary Admission/Discharge Info Admit Date/Time Sep 04, 2018 at 20:33 Discharge Date/Time 09/15/18 Discharge Diagnosis 1. Hypotension- resolved 2. Left-sided weakness/numbness, rule out postinfectious polyneuropathy 3. leukocytosis-resolved 4. Chronic degenerative L5-S1 spondylosis 5. Poorly controlled diabetes 6. Essential hypertension 7. Dyslipidemia 8. Diabetic neuropathy Patient Condition: Stable Consults Neurology- Dr. Munoz Infectious disease- Dr. Franklin Hx of Present Illness Chief complaint: Worsening weakness This is a 57-year-old female, with history of hypertension and high cholesterol, returns to the emergency department 24 hours after being seen and evaluated for generalized weakness. Today, the patient presents to the emergency department, brought in by ambulance after sustaining a ground-level fall where she denied any head trauma, according to the patient, caused by worsening of weakness in her lower extremities. Some times have been going on since 08/18 and at that time she presented to the emergency department with symptoms consistent with acute gastroenteritis. After that, the patient slowly developed progressive asymmetrical weakness of the lower extremities that now is compromising the upper extremities. Reports that originally her weakness is on the left side now it is going to the right. The patient denies recent fever or chills, no chest pain or shortness of breath, no abdominal pain, no diarrhea or constipation. On 08/19/2018, the patient was evaluated at [facility] where she had a carotid ultrasound and a CT of the head that were negative for stroke. The patient and her family reports being in her usual state of health, ambulating, performing the activities of daily living without any difficulty 1 until 3 weeks ago. Since last week, the patient has not been able to ambulate, not been able to perform ADL without assistance. Her daughter was with her at the bedside states that they require assistance to help her up. Patient does report cervical spine pain as well as lumbar spine pain. Patient denies any any chest pain or difficulty breathing. She denies any fevers. Denies any headaches or vision changes. She does report right shoulder surgery in the past so she does have chronic weakness of the right upper extremity. Allergies: Penicillin Medications: See MAR Hospital Course Patient was admitted for workup of acute left sided weakness and Neurology was consulted. Imaging studies were performed with no acute abnormalities. LP was performed with studies suspicious for inflammatory process but all cultures were negative. 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 Her imaging results were also evaluated by Neurosurgery given chronic lower back pain and recommended outpatient follow up. Patient was seen by Infectious disease and antibiotics were discontinued following negative culture results. Patient progressed well with physical therapy and pain was controlled. She was unable to be placed to SNF given high copay and PT was arranged and provide FWW and 3:1 commode. Patients blood pressure was running low during hospital stay but normalized prior to discharge. Patient was discharged home in stable condition with home health services. Home Meds Active Scripts [place], Insulin Disposable (Reny Pen Needle) 1 Each Dis.needle, EACH ACHS A, #120 Prov:YASMIN ALANIS MD 09/15/18 Insulin Aspart* (Novolog Insulin Pen*) 100 Unit/Ml Soln, 8 UNIT SC WITH MEALS for 30 Days, #10 EACH Prov:YASMIN ALANIS MD 09/15/18 Insulin Glargine,Hum.rec.anlog (Basaglar Kwikpen U-100) 100 Unit/1 Ml Insuln.pen, 24 UNIT SC DAILY for 30 Days, #10 EA 1 Refill Prov:YASMIN ALANIS MD 09/15/18 Tramadol HCl (Tramadol HCl) 50 Mg Tablet, 50 MG PO Q6H PRN for MODERATE PAIN LEVEL 4-6 for 7 Days, #30 TAB Prov:YASMIN ALANIS MD 09/15/18 Gabapentin* (Gabapentin*) 100 Mg Capsule, 100 MG PO TID for 30 Days, #90 CAP 1 Refill Prov:YASMIN ALANIS MD 09/15/18 Famotidine* (Famotidine*) 20 Mg Tablet, 20 MG PO DAILY, #30 TAB Prov:YASMIN ALANIS MD 09/15/18 Reported Medications Vitamin B Complex* (Vitamin B Complex*) 1 Each Tablet, 1 TAB PO DAILY, TAB 09/04/18 Pravastatin Sodium* (Pravastatin Sodium*) 40 Mg Tablet, 40 MG PO HS, TAB 09/04/18 Metformin* (Glucophage*) 1,000 Mg Tablet, 1000 MG PO BID, #60 TAB 09/04/18 Glyburide* (Glyburide*) 5 Mg Tablet, 5 MG PO BID, #60 TAB 09/04/18 Discontinued Reported Medications Pioglitazone Hcl* (Pioglitazone Hcl*) 30 Mg Tablet, 30 MG PO DAILY, TAB 09/04/18 Omeprazole* (Omeprazole*) 20 Mg Capsule.dr, 20 MG PO DAILY, #30 CAP 09/04/18 Lisinopril* (Lisinopril*) 40 Mg Tablet, 40 MG PO DAILY, #30 TAB 09/04/18 Discontinued Scripts Ibuprofen* (Motrin*) 600 Mg Tab, 600 MG PO Q6, #15 TAB Prov:JAYNE CRANE MD 08/18/18 Follow-up Plan 1. Follow up with your primary care physician in 1-2 weeks 2. Please ask your PCP for referral to a Neurology for EMG studies if still experiencing left sided weakness 3. You will need to follow up with a neurosurgeon if your lower back pain worsens 4. Continue on Metformin and Glyburide as you were taking before. You were started on Basaglar 24 units daily and Novolog 8 units with meals. This is the regimen you were on while in the hospital and had very good sugar control 5. You will have home health services come to your home to check your vitals and provide physical therapy 6. If experiencing any concerning symptoms, please go to your closest emergency department Primary Care Provider Not On Staff Doctor Time spent on discharge: > 30 minutes Pending Labs Laboratory Tests Test 09/14/18 17:35 09/14/18 23:59 09/15/18 08:09 09/15/18 11:54 Bedside 142 136 98 125 Glucose mg/dL (70-220) mg/dL (70-220) mg/dL (70-220) mg/dL (70-220) Test 09/15/18 16:59 Bedside 130 Glucose mg/dL (70-220) YASMIN ALANIS MD Sep 15, 2018 17:12
== END 2018-09-15 19:39 | disposition home health service (06) | DRG 74 ==
LOC: FTE 16:34 → MS1 20:33 → CANRESERV 22:39 → EDBEDREQ 09-05 10:09 → 6WM 09-09 01:44
PROVIDERS: ADMIT Family Medicine; ATTEND Internal Medicine
PROC: 009U3ZX Drainage of Spinal Canal, Percutaneous Approach, Diagnostic (ICD-10-PCS; principal; 2018-09-06)
PROC: B01BZZZ Fluoroscopy of Spinal Cord (ICD-10-PCS; 2018-09-06)
DX: E11.42 Type 2 diabetes mellitus with diabetic polyneuropathy (principal); E87.2 Acidosis; G62.89 Other specified polyneuropathies; E11.65 Type 2 diabetes mellitus with hyperglycemia; I10 Essential (primary) hypertension; E78.00 Pure hypercholesterolemia, unspecified; M47.897 Other spondylosis, lumbosacral region; I95.9 Hypotension, unspecified; D72.829 Elevated white blood cell count, unspecified; Z79.84 Long term (current) use of oral hypoglycemic drugs; Z88.0 Allergy status to penicillin; Z87.891 Personal history of nicotine dependence
CPT/HCPCS: 36415; 70551; 71045; 72141; 72148; 72157; 72195; 73510; 80048; 80053; 80061; 80307; 81001; 81003; 82040; 82042; 82306; 82550; 82652; 82784; 82945; 82962; 83036; 83605; 83735; 84100; 84157; 84166; 84436; 84443; 84479; 85025; 85651; 86038; 86140; 86592; 86703; 86704; 86709; 86788; 86789; 86803; 87070; 87086; 87340; 89051; 93005; 97110; 97116; 97162; 97163; 97530; J0692; J1650; J1815; J1885; J2270; J2405; J2930; J7030; J7040